=== PATIENT | male | born 1960 | race Caucasian/White ===

== ENCOUNTER 2020-01-15 13:19 | Outpatient (REF) | payer OTHER, SELFPAY | END 2020-01-15 13:20 | disposition home or self-care (01) | LOC: HO.LAB 13:19 | PROVIDERS: Visit Provider Internal Medicine | DX: Z20.828 Contact with and (suspected) exposure to other viral communicable diseases (principal) | CPT/HCPCS: U0003 ==

== ENCOUNTER 2020-01-21 09:59 | Outpatient (REF) | payer OTHER, SELFPAY | END 2020-01-21 10:00 | disposition home or self-care (01) | LOC: HO.LAB 09:59 | PROVIDERS: Visit Provider Internal Medicine | DX: Z20.828 Contact with and (suspected) exposure to other viral communicable diseases (principal) | CPT/HCPCS: C9803; U0003 ==

== ENCOUNTER 2020-01-28 09:05 | Outpatient (REF) | payer OTHER, SELFPAY | END 2020-01-28 09:06 | disposition home or self-care (01) | LOC: HO.LAB 09:05 | PROVIDERS: Visit Provider Internal Medicine | DX: Z20.828 Contact with and (suspected) exposure to other viral communicable diseases (principal) | CPT/HCPCS: C9803; U0003 ==

== ENCOUNTER 2020-02-18 15:23 | Outpatient (REF) | payer OTHER, SELFPAY | END 2020-02-18 15:24 | disposition home or self-care (01) | LOC: HO.LAB 15:23 | PROVIDERS: PCP Internal Medicine; Visit Provider Internal Medicine | DX: Z20.828 Contact with and (suspected) exposure to other viral communicable diseases (principal) | CPT/HCPCS: C9803; U0003 ==

== ENCOUNTER 2020-05-11 11:07 | Emergency (ER) | payer OTHER, SELFPAY ==
[2020-05-11 11:34] VITALS: BP 134/89; PULSE 80; RESP 20; TEMP 36.6; O2SAT 97; BMI 27.3
--- NOTE | 2020-05-11 12:36 | ED_ITS ---
HPI - Medical Clearance General Chief complaint: Medical Clearance <Omar Goetz NP - Last Filed: 05/11/20 19:24> Stated complaint: medical clearance <Omar Goetz NP - Last Filed: 05/11/20 19:24> Time Seen by Provider: 05/11/20 12:36 <Omar Goetz NP - Last Filed: 05/11/20 19:24> Source: patient <Omar Goetz NP - Last Filed: 05/11/20 19:24> Mode of arrival: ambulatory <Omar Goetz NP - Last Filed: 05/11/20 19:24> Limitations: no limitations <Omar Goetz NP - Last Filed: 05/11/20 19:24> History of Present Illness HPI Narrative: This is 60-year-old male who reports history of alcohol abuse as well as intermittent crack cocaine use he went to [facility] for detox services given that he was intoxicated he was sent to the emergency room for medical clearance screening labs. Apparently our substance abuse team was informed of this and they have a bed for the patient at midnight. He upon arrival admits to drinking ?couple pints? of beer today states he is not really sure why he has to come here for medical clearance. He offers no other medical complaints. No recent fall or injury. <Omar Goetz NP - Last Filed: 05/11/20 19:24> MD complaint: medical clearance requested <Omar Goetz NP - Last Filed: 05/11/20 19:24> Onset (ago): day(s) <Omar Goetz NP - Last Filed: 05/11/20 19:24> Reason for Medical Clearance: intoxication <Omar Goetz NP - Last Filed: 05/11/20 19:24> Alleged Intoxication: Yes <Omar Goetz NP - Last Filed: 05/11/20 19:24> Traumatic Symptoms: denies traumatic injury <Omar Goetz NP - Last Filed: 05/11/20 19:24> Associated Symptoms: denies other symptoms <Omar Goetz NP - Last Filed: 05/11/20 19:24> Treatments Prior to Arrival: none <Omar Goetz NP - Last Filed: 05/11/20 19:24> Related Information Allergies/Adverse reactions: Allergies Allergy/AdvReac Type Severity Reaction Status Date / Time No Known Allergies Allergy Verified 05/11/20 11:39 [No Known Allergies*] <Omar Goetz NP - Last Filed: 05/11/20 19:24> Review of Systems Review of Systems: Constitutional: No Weight loss, No Fever, No Chills, No Night Sweats, No Fatigue, No Malaise ENT/Mouth: No Hearing loss, No Ear Pain, No Nasal Congestion, No Sinus Pain, No Hoarseness, No sore throat, No Rhinorrhea, No Swallowing Difficulty Eyes: No Eye Pain, No Swelling, No Redness, No Foreign Body, No Discharge, No Vision Changes Cardiovascular: No Chest Pain, No SOB, No Dyspnea on Exertion, No Orthopnea, No Edema, No Palpitations Respiratory: No Cough, No Sputum, No Wheezing, No Dyspnea Gastrointestinal: No Nausea, No Vomiting, No Diarrhea, No Constipation, No abdominal Pain, No Hematochezia, No Melena Genitourinary: No Dysuria, No Urinary Frequency, No Hematuria, No Urinary Incontinence, No Urgency, No Flank Pain, No Urinary Flow Changes, No Hesitancy Musculoskeletal: No joint pain, No Myalgias, No Joint Swelling Skin: No Skin Lesions, No rash Neuro: No Weakness, No Numbness, No Paresthesias, No Loss of Consciousness, No Dizziness, No Headache Psych: No Anxiety/Panic, No Depression, No SI/HI/AH/VH, No Social Issues Heme/Lymph: No Bruising, No Bleeding,No Lymphadenopathy Endocrine: No Polyuria, No Polydipsia, No Temperature Intolerance <Omar Goetz NP - Last Filed: 05/11/20 19:24> Yes all other systems are reviewed and are negative <Omar Goetz NP - Last Filed: 05/11/20 19:24> [facility] Past Medical History Medical History: Medical History (Updated 05/12/20 @ 00:00 by Onofre Brar) Cirrhosis of liver Esophageal varices <Omar Goetz NP - Last Filed: 05/11/20 19:24> Social History Social History: Social History Alcohol intake: current Alcohol intake frequency: former alcohol drinker Alcohol type: hard liquor Use of substances other than those prescribed or required for medical reasons: Yes Substance Use Type: Crack/Cocaine Substance Use Frequency: Chronic Longstanding Advance Directives: No Advance Directives Information Provided: No <Omar Goetz NP - Last Filed: 05/11/20 19:24> Physical Exam Vital Signs: Vital Signs: Last Vital Signs Temp 98 F 05/11/20 11:34 Pulse 80 05/11/20 11:34 Resp 20 05/11/20 11:34 BP 134/89 05/11/20 11:34 Pulse Ox 97 05/11/20 11:34 Body Mass Index 27.3 Reviewed <Omar Goetz NP - Last Filed: 05/11/20 19:24> Vital Signs: Last Vital Signs Temp 98 F 05/11/20 11:34 Pulse 80 05/11/20 11:34 Resp 20 05/11/20 11:34 BP 134/89 05/11/20 11:34 Pulse Ox 97 05/11/20 11:34 Body Mass Index 27.3 <Federico Lopez MD - Last Filed: 05/31/20 11:26> Const: Other: Has odor of EtOH <Omar Goetz NP - Last Filed: 05/11/20 19:24> General: cooperative and intoxicated appearing; No acute distress <Omar Goetz NP - Last Filed: 05/11/20 19:24> Nutritional Appearance: average body habitus <Omar Goetz NP - Last Filed: 05/11/20 19:24> Orientation/consciousness: patient oriented x3 <Omar Goetz NP - Last Filed: 05/11/20 19:24> HENMT: Head: Yes normal to inspection <Omar Goetz NP - Last Filed: 05/11/20 19:24> Ears: hearing grossly normal bilaterally <Omar Goetz NP - Last Filed: 05/11/20 19:24> Eyes: General: appearance normal, both eyes and all related structures <Omar Goetz NP - Last Filed: 05/11/20 19:24> Visual Dunbar: normal visual dunbar by confrontation <Omar Goetz NP - Last Filed: 05/11/20 19:24> Neck: Neck: Yes normal visual inspection, No positive Brudzinski's sign, No positive Kernig's sign and No tender <Omar Goetz NP - Last Filed: 05/11/20 19:24> Thyroid: Thyroid normal <[facility] Bishnu [employer] - Last Filed: 05/11/20 19:24> Chest: Chest palpation & inspection: normal inspection of the chest <Omar Goetz [employer]AK[employer] - Last Filed: 05/11/20 19:24> Resp: Effort & Inspection: normal respiratory effort <[facility] Bishnu - Last Filed: 05/11/20 19:24> Auscultation: clear to auscultation bilaterally <Omar Bishnu [employer] - Last Filed: 05/11/20 19:24> Cardio: Jugular venous distension: no JVD <[facility] Bishnu [employer] - Last Filed: 05/11/20 19:24> Rhythm: regular rhythm <[facility] Goetz - Last Filed: 05/11/20 19:24> Heart sounds: S1 normal heart sound present and S2 normal heart sound present <[facility] Bishnu [employer] - Last Filed: 05/11/20 19:24> GI: Inspection: Yes normal to inspection <Omar Bishnu [employer] - Last Filed: 05/11/20 19:24> Palpation (GI): Soft to palpation <[facility] Goetz - Last Filed: 05/11/20 19:24> Percussion: Yes normal to percussion <[facility] Bishnu [employer] - Last Filed: 05/11/20 19:24> Auscultation: normal bowel sounds <Omar Bishnu [employer] - Last Filed: 05/11/20 19:24> : General: Yes no CVA tenderness <Omar Goetz [employer] - Last Filed: 05/11/20 19:24> Back/Spine/Pelvis: Back: no CVA tenderness <Omar Bishnu [employer] - Last Filed: 05/11/20 19:24> Skin: General skin exam: no rashes or lesions noted <Omar Goetz [employer]AK[employer] - Last Filed: 05/11/20 19:24> Neuro: General: patient oriented x3 <Omar GoetzANGELIA - Last Filed: 05/11/20 19:24> Extrem: General: Yes normal to inspection <Omar GoetzANGELIA romero - Last Filed: 05/11/20 19:24> Course Course Course Narrative: Attempting to Walker the ED aware that he must wait to get the results of his workup and has a detox bed states he wants to go home to nut picker his stuff and will go to his detox bed at midnight. States he called his daughter Bisi who is coming to pick him up. <Omar Goetz NP - Last Filed: 05/11/20 19:24> I have reviewed the chart <Federico Lopez MD - Last Filed: 05/31/20 11:26> Reevaluation(s) Reevaluation #1: Olga from the substance abuse team met with the patient and will assist him in getting him to detox. <Omar Goetz NP - Last Filed: 05/11/20 19:24> MDM - Medical Clearance Lab Data Result diagrams: : 05/11/20 14:07 05/11/20 14:07 <Omar Goetz NP - Last Filed: 05/11/20 19:24> Labs: Lab Results 05/11/20 05/11/20 05/11/20 Range/Units 13:03 13:17 14:07 WBC 4.7 L (4.8-10.8) X10*3/uL RBC 4.85 (4.60-5.80) X10*6/uL Hgb 14.9 (14.0-18.0) g/dl Hct 44.5 (42-52) % MCV 91.8 (80-98) fL MCH 30.7 (27.0-33.0) pg MCHC 33.5 (31.0-36.0) g/dl RDW 13.7 (11.0-16.0) % Plt Count 163 (160-400) X10*3/uL MPV 10.1 (9.4-12.4) fL Immature Gran % (Auto) 0.2 (0.0-0.4) % Neut % (Auto) 45.6 (45-73) % Lymph % (Auto) 36.4 (20-40) % Josephine % (Auto) 12.0 H (2-11) % Eos % (Auto) 4.9 H (0-4) % Baso % (Auto) 0.9 (0-2) % Lymph # (Auto) 1.7 (1.2-4.9) X10*3/uL Josephine # (Auto) 0.6 (0.1-1.2) X10*3/uL Eos # (Auto) 0.2 (0.0-0.4) X10*3/uL Baso # (Auto) 0.0 (0.0-0.2) X10*3/uL Abs Immat Gran (auto) 0.01 (0.00-0.03) X10*3/uL Absolute Neuts (auto) 2.1 (2.0-8.3) X10*3/uL Absolute Nucleated RBC 0.000 (0.0-0.012) X10*3/uL Nucleated RBC % (auto) 0.0 (0.0-0.2) /100WBC Sodium (135-145) mmol/L Potassium (3.3-5.1) mmol/L Chloride (96-108) mmol/L Carbon Dioxide (22-29) mmol/L Anion Gap (12-20) BUN (9-16) mg/dL Creatinine (0.5-1.4) mg/dL Estim Creat Clear Calc Estimated GFR Random Glucose (60-115) mg/dL Calcium (8.4-10.2) mg/dL Total Bilirubin (0.0-1.0) mg/dL AST (5-37) U/L ALT (0-40) U/L Alkaline Phosphatase (39-117) U/L Total Protein (6.5-8.0) g/dL Albumin (3.5-5.0) g/dL Urine Opiates Screen Not Detected (Not Detect) Ur Barbiturates Screen Not Detected (Not Detect) Ur Phencyclidine Scrn Not Detected (Not Detect) Ur Amphetamines Screen Not Detected (Not Detect) U Benzodiazepines Scrn Not Detected (Not Detect) Urine Cocaine Screen POSITIVE H (Not Detect) U Marijuana (THC) Screen Not Detected (Not Detect) Ethyl Alcohol mg/dL COVID-19 ([facility]NA) Negative (Negative) COVID-19 Clin Com See Note 05/11/20 05/11/20 Range/Units 14:07 14:07 WBC (4.8-10.8) X10*3/uL RBC (4.60-5.80) X10*6/uL Hgb (14.0-18.0) g/dl Hct (42-52) % MCV (80-98) fL MCH (27.0-33.0) pg MCHC (31.0-36.0) g/dl RDW (11.0-16.0) % Plt Count (160-400) X10*3/uL MPV (9.4-12.4) fL Immature Gran % (Auto) (0.0-0.4) % Neut % (Auto) (45-73) % Lymph % (Auto) (20-40) % Josephine % (Auto) (2-11) % Eos % (Auto) (0-4) % Baso % (Auto) (0-2) % Lymph # (Auto) (1.2-4.9) X10*3/uL Josephine # (Auto) (0.1-1.2) X10*3/uL Eos # (Auto) (0.0-0.4) X10*3/uL Baso # (Auto) (0.0-0.2) X10*3/uL Abs Immat Gran (auto) (0.00-0.03) X10*3/uL Absolute Neuts (auto) (2.0-8.3) X10*3/uL Absolute Nucleated RBC (0.0-0.012) X10*3/uL Nucleated RBC % (auto) (0.0-0.2) /100WBC Sodium 143 (135-145) mmol/L Potassium 3.6 (3.3-5.1) mmol/L Chloride 109 H (96-108) mmol/L Carbon Dioxide 24 (22-29) mmol/L Anion Gap 14 (12-20) BUN 9 (9-16) mg/dL Creatinine 0.75 (0.5-1.4) mg/dL Estim Creat Clear Calc 104.7 Estimated GFR > 60 Random Glucose 109 (60-115) mg/dL Calcium 8.8 (8.4-10.2) mg/dL Total Bilirubin 0.6 (0.0-1.0) mg/dL AST 96 H (5-37) U/L ALT 82 H (0-40) U/L Alkaline Phosphatase 69 (39-117) U/L Total Protein 7.4 (6.5-8.0) g/dL Albumin 4.5 (3.5-5.0) g/dL Urine Opiates Screen (Not Detect) Ur Barbiturates Screen (Not Detect) Ur Phencyclidine Scrn (Not Detect) Ur Amphetamines Screen (Not Detect) U Benzodiazepines Scrn (Not Detect) Urine Cocaine Screen (Not Detect) U Marijuana (THC) Screen (Not Detect) Ethyl Alcohol 328 H* mg/dL COVID-19 ([facility]IANA) (Negative) COVID-19 Clin Com <Omar Goetz NP - Last Filed: 05/11/20 19:24> Lab Results 05/11/20 05/11/20 05/11/20 Range/Units 13:03 13:17 14:07 WBC 4.7 L (4.8-10.8) X10*3/uL RBC 4.85 (4.60-5.80) X10*6/uL Hgb 14.9 (14.0-18.0) g/dl Hct 44.5 (42-52) % MCV 91.8 (80-98) fL MCH 30.7 (27.0-33.0) pg MCHC 33.5 (31.0-36.0) g/dl RDW 13.7 (11.0-16.0) % Plt Count 163 (160-400) X10*3/uL MPV 10.1 (9.4-12.4) fL Immature Gran % (Auto) 0.2 (0.0-0.4) % Neut % (Auto) 45.6 (45-73) % Lymph % (Auto) 36.4 (20-40) % Josephine % (Auto) 12.0 H (2-11) % Eos % (Auto) 4.9 H (0-4) % Baso % (Auto) 0.9 (0-2) % Lymph # (Auto) 1.7 (1.2-4.9) X10*3/uL Josephine # (Auto) 0.6 (0.1-1.2) X10*3/uL Eos # (Auto) 0.2 (0.0-0.4) X10*3/uL Baso # (Auto) 0.0 (0.0-0.2) X10*3/uL Abs Immat Gran (auto) 0.01 (0.00-0.03) X10*3/uL Absolute Neuts (auto) 2.1 (2.0-8.3) X10*3/uL Absolute Nucleated RBC 0.000 (0.0-0.012) X10*3/uL Nucleated RBC % (auto) 0.0 (0.0-0.2) /100WBC Sodium (135-145) mmol/L Potassium (3.3-5.1) mmol/L Chloride (96-108) mmol/L Carbon Dioxide (22-29) mmol/L Anion Gap (12-20) BUN (9-16) mg/dL Creatinine (0.5-1.4) mg/dL Estim Creat Clear Calc Estimated GFR Random Glucose (60-115) mg/dL Calcium (8.4-10.2) mg/dL Total Bilirubin (0.0-1.0) mg/dL AST (5-37) U/L ALT (0-40) U/L Alkaline Phosphatase (39-117) U/L Total Protein (6.5-8.0) g/dL Albumin (3.5-5.0) g/dL Urine Opiates Screen Not Detected (Not Detect) Ur Barbiturates Screen Not Detected (Not Detect) Ur Phencyclidine Scrn Not Detected (Not Detect) Ur Amphetamines Screen Not Detected (Not Detect) U Benzodiazepines Scrn Not Detected (Not Detect) Urine Cocaine Screen POSITIVE H (Not Detect) U Marijuana (THC) Screen Not Detected (Not Detect) Ethyl Alcohol mg/dL COVID-19 ([facility]NA) Negative (Negative) COVID-19 Clin Com See Note 05/11/20 05/11/20 Range/Units 14:07 14:07 WBC (4.8-10.8) X10*3/uL RBC (4.60-5.80) X10*6/uL Hgb (14.0-18.0) g/dl Hct (42-52) % MCV (80-98) fL MCH (27.0-33.0) pg MCHC (31.0-36.0) g/dl RDW (11.0-16.0) % Plt Count (160-400) X10*3/uL MPV (9.4-12.4) fL Immature Gran % (Auto) (0.0-0.4) % Neut % (Auto) (45-73) % Lymph % (Auto) (20-40) % Josephine % (Auto) (2-11) % Eos % (Auto) (0-4) % Baso % (Auto) (0-2) % Lymph # (Auto) (1.2-4.9) X10*3/uL Josephine # (Auto) (0.1-1.2) X10*3/uL Eos # (Auto) (0.0-0.4) X10*3/uL Baso # (Auto) (0.0-0.2) X10*3/uL Abs Immat Gran (auto) (0.00-0.03) X10*3/uL Absolute Neuts (auto) (2.0-8.3) X10*3/uL Absolute Nucleated RBC (0.0-0.012) X10*3/uL Nucleated RBC % (auto) (0.0-0.2) /100WBC Sodium 143 (135-145) mmol/L Potassium 3.6 (3.3-5.1) mmol/L Chloride 109 H (96-108) mmol/L Carbon Dioxide 24 (22-29) mmol/L Anion Gap 14 (12-20) BUN 9 (9-16) mg/dL Creatinine 0.75 (0.5-1.4) mg/dL Estim Creat Clear Calc 104.7 Estimated GFR > 60 Random Glucose 109 (60-115) mg/dL Calcium 8.8 (8.4-10.2) mg/dL Total Bilirubin 0.6 (0.0-1.0) mg/dL AST 96 H (5-37) U/L ALT 82 H (0-40) U/L Alkaline Phosphatase 69 (39-117) U/L Total Protein 7.4 (6.5-8.0) g/dL Albumin 4.5 (3.5-5.0) g/dL Urine Opiates Screen (Not Detect) Ur Barbiturates Screen (Not Detect) Ur Phencyclidine Scrn (Not Detect) Ur Amphetamines Screen (Not Detect) U Benzodiazepines Scrn (Not Detect) Urine Cocaine Screen (Not Detect) U Marijuana (THC) Screen (Not Detect) Ethyl Alcohol 328 H* mg/dL COVID-19 ([facility]NA) (Negative) COVID-19 Clin Com <Federico Lopez MD - Last Filed: 05/31/20 11:26> ECG Data Interpretation: EKG done at 13:05 Normal sinus rhythm Rate 70 RI interval within normal limits No acute ST segment changes No previous <Omar Goetz NP - Last Filed: 05/11/20 19:24> Discharge Plan Discharge Clinical Impression: Alcohol intoxication, Substance abuse <Omar Goetz NP - Last Filed: 05/11/20 19:24> Patient Disposition: Elopement <Omar Goetz NP - Last Filed: 05/11/20 19:24> Discharge Date/Time: 05/11/20 14:46 <Omar Goetz NP - Last Filed: 05/11/20 19:24>
--- NOTE | 2020-05-11 12:45 | ECG_ITS ---
Test Reason : MED CLEAR Blood Pressure : / mmHG Vent. Rate : 090 BPM Atrial Rate : 267 BPM P-R Int : 000 ms QRS Dur : 092 ms QT Int : 386 ms P-R-T Axes : 000 079 078 degrees QTc Int : 472 ms Accelerated Junctional rhythm Abnormal ECG No previous ECGs available Referred By: Omar Goetz Electronically Signed By:HOLDEN HARDY MD
--- NOTE | 2020-05-11 12:45 | PC.NURSE ---
called to ed room, pt was out in parking lot, ambulatory to [facility], appears intoxicated, states last used crack couple days ago and drank a couple 1/2 pints today, ANGELIA Goetz at bedside for assessment, labs, ekg, covid swab to be obtained
--- NOTE | 2020-05-11 12:59 | MHC.RECOVRN ---
T/w received call from [facility] informing t/w that pt was here to obtain medical clearance prior to ATS admission. T/w met with pt to confirm that he is planning on going to ATS after medical clearance and obtaining belongings. Pt agreeable to labs, COVID swab, and EKG. Will continue to follow.
--- NOTE | 2020-05-11 13:09 | PC.NURSE ---
EKG REPEATED AT PROVIDER REQUEST [id number]
[2020-05-11 13:42] LABS: COVID-19 Test Negative (Negative)
[2020-05-11 14:00] LABS: Amphetamine Screen Urine Not Detected (Not Detect); Barbiturates, Urine Not Detected (Not Detect); Benzodiazepines Screen Urine Not Detected (Not Detect); Cannabinoid Screen Urine Not Detected (Not Detect); Cocaine Screen Urine POSITIVE (Not Detect); Opiate Screen Urine Not Detected (Not Detect); Phencyclidine Screen Urine Not Detected (Not Detect)
[2020-05-11 14:13] LABS: MANUAL DIFF FLAG NO
[2020-05-11 14:16] LABS: Basophils Percent Auto 0.9 % (0-2); Eosinophils Absolute Auto 0.2 X10*3/uL (0.0-0.4); Eosinophils Percent Auto 4.9 % (0-4); Hematocrit 44.5 % (42-52); Hemoglobin 14.9 g/dl (14.0-18.0); Imm Gran Abs Auto 0.01 X10*3/uL (0.00-0.03); Imm Gran Pct Auto 0.2 % (0.0-0.4); Lymphocytes Absolute Auto 1.7 X10*3/uL (1.2-4.9); Lymphocytes Percent Auto 36.4 % (20-40); Mean Corpuscular HGB Conc 33.5 g/dl (31.0-36.0); Mean Corpuscular Hemoglobin 30.7 pg (27.0-33.0); Mean Corpuscular Volume 91.8 fL (80-98); Mean Platelet Volume 10.1 fL (9.4-12.4); Monocytes Absolute Auto 0.6 X10*3/uL (0.1-1.2); Neutrophils Absolute Auto 2.1 X10*3/uL (2.0-8.3); Neutrophils Percent Auto 45.6 % (45-73); Platelet Count 163 X10*3/uL (160-400); Red Blood Count 4.85 X10*6/uL (4.60-5.80); Red Cell Distribution Width 13.7 % (11.0-16.0); White Blood Count 4.7 X10*3/uL (4.8-10.8)
--- NOTE | 2020-05-11 14:23 | ECG_ITS ---
Test Reason : MED CLEARANCE Blood Pressure : / mmHG Vent. Rate : 076 BPM Atrial Rate : 076 BPM P-R Int : 128 ms QRS Dur : 098 ms QT Int : 410 ms P-R-T Axes : 074 079 080 degrees QTc Int : 461 ms Normal sinus rhythm Normal ECG When compared with ECG of 11-MAY-2020 12:51, Sinus rhythm has replaced Junctional rhythm Referred By: Omar Goetz Electronically Signed By:HOLDEN HARDY MD
[2020-05-11 14:42] LABS: Ethanol 328 mg/dL
[2020-05-11 14:50] LABS: Alanine Aminotransferase 82 U/L (0-40); Albumin Level 4.5 g/dL (3.5-5.0); Alkaline Phosphatase 69 U/L (39-117); Anion Gap 14 (12-20); Aspartate Amino Transferase 96 U/L (5-37); Bilirubin Total 0.6 mg/dL (0.0-1.0); Blood Urea Nitrogen 9 mg/dL (9-16); Calcium 8.8 mg/dL (8.4-10.2); Carbon Dioxide 24 mmol/L (22-29); Chloride 109 mmol/L (96-108); Creatinine Clr Calc Pharmacy 104.7; Estimated Glomerular Filt Rate > 60; Glucose Random 109 mg/dL (60-115); Potassium 3.6 mmol/L (3.3-5.1); Sodium 143 mmol/L (135-145); Total Protein 7.4 g/dL (6.5-8.0)
== END 2020-05-11 14:46 | disposition left against medical advice (07) ==
PROVIDERS: Nurse Practitioner Primary Care; Emergency Provider Emergency Medicine
DX: F10.120 Alcohol abuse with intoxication, uncomplicated (principal); Y90.8 Blood alcohol level of 240 mg/100 ml or more; F14.10 Cocaine abuse, uncomplicated; Z20.822 Contact with and (suspected) exposure to COVID-19; K74.60 Unspecified cirrhosis of liver
CPT/HCPCS: 36415; 80053; 80307; 80320; 85025; 87635; 93005; 99283

== ENCOUNTER 2021-07-12 16:26 | Emergency (ER) | payer OTHER, SELFPAY ==
--- NOTE | 2021-07-12 16:34 | ECG_ITS ---
Test Reason : OVERDOSE Blood Pressure : / mmHG Vent. Rate : 072 BPM Atrial Rate : 072 BPM P-R Int : 126 ms QRS Dur : 092 ms QT Int : 426 ms P-R-T Axes : 070 077 073 degrees QTc Int : 466 ms Normal sinus rhythm Normal ECG When compared with ECG of 11-MAY-2020 13:05, No significant change was found Referred By: Scarlet Cordero Electronically Signed By:TOYA CHU
--- NOTE | 2021-07-12 16:36 | ED_ITS ---
HPI - General Adult General Stated complaint: overdose Time Seen by Provider: 07/12/21 16:29 Source: patient and EMS Mode of arrival: EMS Limitations: no limitations History of Present Illness HPI narrative: Patient comes to the emergency room from a sober house via EMS. The staff reported that the patient was not acting right, somnolent. The patient is awake and alert, states that he has in his room quarantine due to COVID 19, he was trying to get some sleep, patient took additional doses of his prescribed zolpidem. Patient took a total of 5 tablets, 10 mg each. Patient states that he did not try to hurt himself, he was just trying to get some sleep. Patient denies using drugs or alcohol . Patient also takes gabapentin. Denies taking additional doses of this. Other than feeling sleepy, patient has no other complaints Related Data Allergies Allergy/AdvReac Type Severity Reaction Status Date / Time No Known Allergies Allergy Verified 05/11/20 11:39 [No Known Allergies*] Review of Systems Review of Systems: Constitutional : No Weight loss, No Fever, No Chills, No Night Sweats, complaining of somnolence ENT/Mouth : No Hearing loss, No Ear Pain, No Nasal Congestion, No Sinus Pain, No Hoarseness, No sore throat, No Rhinorrhea, No Swallowing Difficulty Eyes: No Eye Pain, No Swelling, No Redness, No Foreign Body, No Discharge, No Vision Changes Cardiovascular : No Chest Pain, No SOB, No Dyspnea on Exertion, No Orthopnea, No Edema, No Palpitations Respiratory : No Cough, No Sputum, No Wheezing, No Smoke Exposure, No Dyspnea Gastrointestinal : No Nausea, No Vomiting, No Diarrhea, No Constipation, No abdominal Pain, No Hematochezia, No Melena Genitourinary : no irregular bleeding, No Dysuria, No Urinary Frequency, No Hematuria, No Urinary Incontinence, No Urgency, No Flank Pain, No Urinary Flow Changes, No Hesitancy Musculoskeletal : No joint pain, No Myalgias, No Joint Swelling Skin : No Skin Lesions, No rash Neuro : No Weakness, No Numbness, No Paresthesias, No Loss of Consciousness, No Dizziness, No Headache Psych : No Anxiety/Panic, No Depression, No SI/HI/AH/VH, No Social Issues, Heme/Lymph: No Bruising, No Bleeding,No Lymphadenopathy Endocrine : No Polyuria, No Polydipsia, No Temperature Intolerance [facility] Past Medical History Medical History (Updated 07/12/21 @ 16:40 by Scarlet Cordero MD) Alcohol abuse Cirrhosis of liver Esophageal varices Social History Social History Alcohol intake: current Alcohol intake frequency: former alcohol drinker Alcohol type: hard liquor Substance Use Type: Crack/Cocaine Physical Exam ED Const Other: Appearance: Alert. Oriented X3. No acute distress. Somnolent but easily arousable Eyes: Pupils equal, round and reactive to light. ENT: Pharynx normal. Neck: Normal inspection. Neck supple. No lymph nodes noted. No crepitus CVS: Normal heart rate and rhythm. Pulses normal. Normal S1 and S2 Respiratory: No respiratory distress. Breath sounds normal. No Wheezing. No rales Abdomen: Soft and nontender. No rigidity. No distention. Skin: Skin warm and dry. Normal skin color. Normal skin turgor. Extremities: No lower extremity edema. No Lacerations. No Rash Neuro: Oriented X 3. No motor deficit. No sensory deficit. Moving all extremities. No slurred speech. CN 2 through 12 grossly intact Psych: calm, cooperative, normal affect, coherent Course Course Course Narrative: Labs pending. Treatment for zolpidem overdose is supportive. I was informed by the patient's nurse that the patient eloped. On arrival, other than a bit somnolent, patient was alert and oriented x3, clinically sober. Discharge Plan Discharge Clinical Impression: Accidental medication overdose Patient Disposition: Elopement
[2021-07-12 17:29] VITALS: BP 130/70; PULSE 70; O2SAT 98
[2021-07-12 17:30] VITALS: BP 135/77; PULSE 68; RESP 16; TEMP 36.8; O2SAT 98; BMI 27.4
== END 2021-07-12 17:42 | disposition left against medical advice (07) ==
LOC: HO.ED 17:26
PROVIDERS: Emergency Provider Emergency Medicine
DX: T42.6X1A Poisoning by other antiepileptic and sedative-hypnotic drugs, accidental (unintentional), initial encounter (principal); Y92.9 Unspecified place or not applicable
CPT/HCPCS: 93005; 99283

== ENCOUNTER 2022-01-01 14:19 | Emergency (ER) | payer OTHER, SELFPAY ==
--- OUTSIDE RECORDS SUMMARY | 2022-01-01 16:02 | XMS_ITS | Continuity of Care Document ---
:1960 Author Organization [facility] Address [address] [place] [id number]- Care Team Providers Name Role Phone Dev Ghosh DO Primary Care Physician Encounter [facility] Date(s): 12/09/21 - 12/11/[address] [id number]- Encounter Diagnosis Altered mental status (Final) - 12/10/21 Alcohol intoxication (Final) - 12/10/21 Suicidal ideation (Final) - 12/10/21 Discharge Disposition: A-D/C Home Attending Physician: Gracia Gibbs MD Admitting Physician: Gracia Gibbs MD Referring Physician: Not on Staff, Referring MD Allergies, Adverse Reactions, Alerts No Known Allergies Medications Ambien 10 mg oral tablet 1 tablet = 10 mg, By Mouth, Daily at bedtime, PRN for sleep, 0 Refills, Maintenance, Tablet Start Date: 04/30/11 Status: OrderedElavil Tablet By Mouth, 2 times a day, Maintenance, 04/30/11 16:22:03 Start Date: 04/30/11 Status: Orderedgabapentin 400 mg oral capsule 400 mg, Capsule, By Mouth, 12/11/21 9:00:00 EDT Start Date: 12/11/21 Stop Date: 12/11/21 Status: Completedibuprofen 800 mg oral tablet 1 tablet = 800 mg, By Mouth, 3 times a day, PRN Pain, # 30 tablet, 0 Refills, Maintenance Start Date: 07/14/09 Status: OrderedKlonopin 1 mg oral tablet 1 tablet = 1 mg, By Mouth, Daily at bedtime, 0 Refills, Maintenance Start Date: 04/30/11 Status: OrderedTylox 500 mg-5 mg oral capsule 1 capsule, By Mouth, Every 4 hours, PRN Pain, # 15 capsule, 0 Refills Start Date: 12/26/08 Stop Date: 01/02/09 Status: Ordered Problem List Condition Effective Dates Status Health Status Informant Cervical radiculopathy(Confirmed) Active Vital Signs Most recent to oldest 1 2 3 [Reference Range]: Oxygen Saturation [94-100 %] 95 % 93 % 93 % (12/11/21 6:18 AM) *L* *L* (12/10/21 11:00 PM) (12/10/21:23 PM) Pulse Rate [55-90 bpm] 57 bpm 52 bpm 60 bpm (12/11/21 6:18 AM) *L* (12/10/21 5:23 PM) (12/10/21 11:00 PM) Blood Pressure [90-138/55-84 117/53 mm Hg 114/51 mm Hg 103 /50 mm Hg mm Hg] (12/11/21 6:18 AM) (12/10/21 11:00 PM) (12/10/21: 23 PM) Respiratory Rate [16-30 16 br/min 16 br/min 16 br/mi n br/min] (12/11/21 8:50 AM) (12/11/21 6:18 AM) (12/10/21 11: 00 PM) Temperature [96.8-100.4 DegF] 98.7 DegF 98.5 DegF 98 .4 DegF (12/11/21 6:18 AM) (12/10/21 11:00 PM) (12/10/21 1: 00 PM) Mode of Delivery (Oxygen) Room air Room air Room a ir (12/11/21 6:18 AM) (12/10/21 11:00 PM) (12/10/21: 23 PM) Blood pressure sites Arm, right Arm, left Arm, left (12/11/21 6:18 AM) (12/10/21 11:00 PM) (12/10/21 5: 23 PM) Temperature Route Oral Oral Oral (12/11/21 6:18 AM) (12/10/21 11:00 PM) (12/10/21 1: 00 PM) Care Team PersonnelName: Dev Ghosh DO Address: [address] [place] [id number]
== END 2022-01-01 16:44 | disposition left against medical advice (07) ==
PROVIDERS: Emergency Provider Emergency Medicine
DX: R06.00 Dyspnea, unspecified (principal)

== ENCOUNTER 2022-01-15 17:00 | Emergency (ER) | payer OTHER, SELFPAY ==
[2022-01-15 17:06] VITALS: BP 135/85; PULSE 81; RESP 18; TEMP 36.8; O2SAT 93; BMI 28.8
--- NOTE | 2022-01-15 17:19 | ED_ITS ---
HPI - Overdose General Chief Complaint: Overdose Stated Complaint: ambien OD Time Seen by Provider: 01/15/22 17:06 Source: patient and EMS Mode of arrival: EMS Limitations: no limitations History of Present Illness HPI Narrative: 61-year-old male brought in by EMS for evaluation after total of 8 pills of 10 mg of Ambien (zolpidem) because his been having insomnia and he was trying to sleep, patient was found drowsy, patient is lethargic arousable to verbal stimuli able to carry on conversation patient declined any SI or HI. Patient also declined using any recreational drugs or alcohol. Patient had similar presentation 6 months ago and he overdosed on Ambien because he was having insomnia. Related Data Allergies Allergy/AdvReac Type Severity Reaction Status Date / Time No Known Allergies Allergy Verified 05/11/20 11:39 [No Known Allergies*] Review of Systems Review of Systems: All other systems are reviewed and are negative Constitutional: Reports as per HPI and Reports no additional constitutional complaints Eyes: Reports as per HPI and Reports no additional eye complaints Reports system reviewed and no additional complaints, except as documented Cardiovascular: Reports as per HPI and Reports no additional cardiovascular complaints Respiratory: Reports as per HPI and Reports no additional respiratory complaints Gastrointestinal: Reports as per HPI and Reports no additional gastrointestinal complaints Genitourinary: Reports no additional female genitourinary complaints Musculoskeletal: Reports no additional musculoskeletal complaints Skin/Breast: Reports system reviewed and no additional complaints, except as docu Psychiatric: Reports no additional psychiatric complaints Endocrine: Reports no additional endocrine complaints Hematologic/Lymphatic: Reports no additional hematologic/lymphatic complaints Allergic/Immunologic: Reports no additional allergic/immunologic complaints Reports system reviewed and no additional complaints, except as documented and Reports Abnormal speech present COUNT INCLUDES [facility] Past Medical History Medical History Alcohol abuse Cirrhosis of liver Esophageal varices Social History Social History Alcohol intake: current Alcohol intake frequency: former alcohol drinker Alcohol type: hard liquor Substance Use Type: Crack/Cocaine Advance Directives: No Advance Directives Information Provided: No Physical Exam Vital Signs: Vital Signs: Last Vital Signs Temp 98.2 F 01/15/22 17:06 Pulse 81 01/15/22 17:06 Resp 18 01/15/22 17:06 BP 135/85 01/15/22 17:06 Pulse Ox 93 01/15/22 17:06 O2 Del Method 01/15/22 17:06 BMI result Body Mass Index 28.8 Vital signs have been reviewed as appeared to be correct. Blood pressure normal. Heart rate normal. Respiration rate normal. Temperature normal. Oxygen saturation normal. Appearance: Lethargic arouse to verbal stimuli. Oriented X3. No acute distress. Head: Normal external exam. Normocephalic. Atraumatic. No Gamble signs noted. No raccoon eyes noted Eyes: PERRLA. EOMI. Conjunctiva and sclera normal. Eyelids normal. ENT: TM's Normal. Pharynx normal. Uvula midline. Moist mucous membranes. No trismus noted. No drooling noted. No muffled voice noted. Neck: Normal inspection. Neck supple. FROM. No adenopathy. Thyroid Normal. No meningeal signs. No neck mass noted. CVS: Normal heart rate and rhythm. Heart sound normal. No murmurs noted. Pulses normal throughout. Respiratory: No respiratory distress. Painless inspiration. Breath sounds normal. No wheezes/rales/rhonchi noted. Chest nontender. No accessory muscle usage noted or decreased air movement noted. Abdomen: Soft and nontender. Bowel sounds normal in all 4 quadrants. No distention noted. No organomegaly noted. No visible injury noted. Back: No CVA tenderness. Full range of motion noted. Skin: Skin warm and dry. Normal skin color. Normal skin turgor. No rashes/lesions/lacerations noted. Extremities: No lower extremity edema. Extremities exhibit normal range of motion. Extremities nontender. Neuro: Oriented X 3. Cranial nerve exam: II-XII are grossly intact No motor deficit. No sensory deficit. Reflexes normal. Course Course Course Narrative: 61-year-old male presented after overdosed on Ambien with no intention to hurt himself patient was hoping to have a better sleep. Unremarkable labs will discharge the patient when he is more sober. Patient was instructed to take his prescribed medication as instructed by his PCP. MDM - Overdose Medical Records Attestation: I reviewed the patient's medical records. Lab Data Attestation: I reviewed the patient's lab results. Result diagrams: 01/15/22 17:26 01/15/22 17:26 Labs: Lab Results 01/15/22 01/15/22 Range/Units 17:26 17:26 WBC 4.0 L (4.8-10.8) X10*3/uL RBC 4.12 L (4.60-5.80) X10*6/uL Hgb 12.7 L (14.0-18.0) g/dl Hct 36.8 L (42.0-52.0) % MCV 89.3 (80.0-98.0) fL MCH 30.8 (27.0-33.0) pg MCHC 34.5 (31.0-36.0) g/dl RDW 13.2 (11.0-16.0) % Plt Count 139 L (160-400) X10*3/uL MPV 10.3 (9.4-12.4) fL Immature Gran % (Auto) 0.2 (0.0-0.4) % Neut % (Auto) 63.8 (45-73) % Lymph % (Auto) 21.4 (20-40) % [place] % (Auto) 11.2 H (2-11) % Eos % (Auto) 2.7 (0-4) % Baso % (Auto) 0.7 (0-2) % Lymph # (Auto) 0.9 L (1.2-4.9) X10*3/uL [place] # (Auto) 0.5 (0.1-1.2) X10*3/uL Eos # (Auto) 0.1 (0.0-0.4) X10*3/uL Baso # (Auto) 0.0 (0.0-0.2) X10*3/uL Abs Immat Gran (auto) 0.01 (0.00-0.03) X10*3/uL Absolute Neuts (auto) 2.6 (2.0-8.3) x10*3/uL Absolute Nucleated RBC 0.000 (0.0-0.012) X10*3/uL Nucleated RBC % (auto) 0.0 (0.0-0.2) /100WBC Sodium 138 (135-145) mmol/L Potassium 3.4 (3.3-5.1) mmol/L Chloride 105 (96-108) mmol/L Carbon Dioxide 26 (22-29) mmol/L Anion Gap 10 L (12-20) BUN 7 L (9-16) mg/dL Creatinine 0.69 (0.5-1.4) mg/dL Estim Creat Clear Calc 120.0 Estimated GFR > 60 Random Glucose 93 (60-115) mg/dL Calcium 8.7 (8.4-10.2) mg/dL Total Bilirubin 0.7 (0.0-1.0) mg/dL Direct Bilirubin 0.3 (0.0-0.5) mg/dL AST 26 D (5-37) U/L ALT 22 (0-40) U/L Alkaline Phosphatase 56 (39-117) U/L Total Protein 6.2 L (6.5-8.0) g/dL Albumin 3.8 (3.5-5.0) g/dL Lipase 23 (8-78) U/L Salicylates < 5.0 L (15-30) mg/dL Acetaminophen < 1 (<30) mcg/mL Ethyl Alcohol < 10 mg/dL Discharge Plan Discharge Clinical Impression: Accidental drug ingestion Patient Disposition: Still a Patient Instructions: Adult Overdose (ED) Additional Instructions: Take the medicine as was instructed and prescribed to you. Referrals: Physician,Unknown J [Primary Care Provider] -
--- OUTSIDE RECORDS SUMMARY | 2022-01-15 17:22 | XMS_ITS | Continuity of Care Document ---
:1960 Author Organization [facility] Address [address] [place] [id number]- Care Team Providers Name Role Phone Dev Ghosh DO Primary Care Physician [place] [facility] [place]): [place]01[place] - 01/02/[address] [id number]- Encounter Diagnosis Acute alcohol intoxication (Final) - 01/01/22 Opiate overdose (Final) - 01/01/22 Discharge Disposition: A-D/C AMA Attending Physician: Nnamdi Lacey MD Admitting Physician: Nnamdi Lacey MD Referring Physician: Not on Staff, Referring MD Allergies, Adverse Reactions, Alerts No Known Allergies Medications Ambien 10 mg oral tablet 1 tablet = 10 mg, By Mouth, Daily at bedtime, PRN for sleep, 0 Refills, Maintenance, Tablet Start Date: 04/30/11 Status: OrderedElavil Tablet By Mouth, 2 times a day, Maintenance, 04/30/11 16:22:03 Start Date: 04/30/11 Status: Orderedibuprofen 800 mg oral tablet 1 tablet = [...] Date: 01/02/09 Status: Ordered Problem List Condition Confirmation Course Effective Dates Status Health I nformant Status Cervical Confirmed Active radiculopathy Results Radiology Reports Exam Date Time Procedure Performing Provider Status 01/02/22 2:05 AM Chest Portable Lonny , Emilia; Auth (Jean Paulaly d) Notes:(Chest Portable) Reason For Exam: Shortness of BreathRESULT: Chest Portable Chest Portable Hx of Present Illness: Shortness of breath COMPARISON: None. FINDINGS: LINES AND TUBES: None. LUNGS AND PLEURA: Clear lungs. Normal pulmonary vascularity. No pleural effusion. No pneumothorax. HEART, MEDIASTINUM AND YENNY: Heart is normal in size. Normal mediastinal and hilar contour. BONES AND SOFT TISSUES: No acute abnormality. IMPRESSION: No acute abnormality. WSN: [id number] Ordering Physician: Gabriel Meadows Dictated By: Get Chauhan MD Dictated Date/Time: 01/01/22 11:19 p Reviewed By: Get Chauhan MD Signed By: Get Chauhan MD Signed Date/Time: 01/01/22 11:19 pm Transcribed By: KESHAWN Transcribed Date/Time: 01/01/22 11:19 pm Vital Signs Most recent to oldest 1 2 3 [Reference Range]: Oxygen Saturation [94-100 94 % 95 % 97 % %] (01/02/22 6:27 AM) (01/02/22 1:28 AM) (01/01/22 11:18 PM) Pulse Rate [55-90 bpm] 78 bpm 60 bpm 66 bpm (01/02/22 6:27 AM) (01/02/22 1:28 AM) (01/01/22 11:18 PM) Blood Pressure 108/58 mm Hg 100/67 mm Hg 99/59 mm Hg [90-138/55-84 mm Hg] (01/02/22 6:27 AM) (01/02/22 1:28 AM) (12/16 10/06 11:18 PM) Respiratory Rate [16-30 16 br/min 22 br/min 20 br/mi n br/min] (01/02/22 6:27 AM) (01/02/22 1:28 AM) (01/01/22 11:18 PM) Temperature [96.8-100.4 98.2 DegF 98.7 DegF 97.3 Deg F DegF] (01/02/22 6:27 AM) (01/01/22 10:00 PM) (01/01/22 9:09 PM) Mode of Delivery (Oxygen) Room air Room air Room a ir (10/18/22 6:27 AM) (01/02/22 1:28 AM) (01/01/22 11:18 PM) Blood pressure sites Arm, right Arm, left Arm, right (01/02/22 6:27 AM) (01/02/22 1:28 AM) (01/01/22 11:18 PM) Temperature Route Oral Oral Oral (01/02/22 6:27 AM) (01/01/22 10:00 PM) (01/01/22 9:09 PM) Portable XR Chest Views [facility]SP[facility]erscribe , CIS S: TRANSCRIBE Get Chauhan MD: VERIFY Event Display: Result: Authored Date: [id number] Chest Portable Hx of Present Illness: Shortness of breath COMPARISON: None. FINDINGS: LINES AND TUBES: None. LUNGS AND PLEURA: Clear lungs. Normal pulmonary vascularity. No pleural effusion. No pneumothorax. HEART, MEDIASTINUM AND YENNY: Heart is normal in size. Normal mediastinal and hilar contour. BONES AND SOFT TISSUES: No acute abnormality. IMPRESSION: No acute abnormality. WSN: [id number] Ordering Physician: Gabriel Meadows Dictated By: Get Chauhan MD Dictated Date/Time: 01/01/22 11:19 p Reviewed By: Get Chauhan MD Signed By: Get Chauhan MD Signed Date/Time: 01/01/22 11:19 pm Transcribed By: KESHAWN Transcribed Date/Time: 01/01/22 11:19 pm Patient Care team information PersonnelName: Dev Ghosh DO Address: Address: [address] [place] [id number]
[2022-01-15 17:29] LABS: MANUAL DIFF FLAG NO
[2022-01-15 17:34] LABS: Basophils Percent Auto 0.7 % (0-2); Eosinophils Absolute Auto 0.1 X10*3/uL (0.0-0.4); Eosinophils Percent Auto 2.7 % (0-4); Hematocrit 36.8 % (42.0-52.0); Hemoglobin 12.7 g/dl (14.0-18.0); Imm Gran Abs Auto 0.01 X10*3/uL (0.00-0.03); Imm Gran Pct Auto 0.2 % (0.0-0.4); Lymphocytes Absolute Auto 0.9 X10*3/uL (1.2-4.9); Lymphocytes Percent Auto 21.4 % (20-40); Mean Corpuscular HGB Conc 34.5 g/dl (31.0-36.0); Mean Corpuscular Hemoglobin 30.8 pg (27.0-33.0); Mean Corpuscular Volume 89.3 fL (80.0-98.0); Mean Platelet Volume 10.3 fL (9.4-12.4); Monocytes Absolute Auto 0.5 X10*3/uL (0.1-1.2); Monocytes Percent Auto 11.2 % (2-11); Neutrophils Absolute Auto 2.6 x10*3/uL (2.0-8.3); Neutrophils Percent Auto 63.8 % (45-73); Platelet Count 139 X10*3/uL (160-400); Red Blood Count 4.12 X10*6/uL (4.60-5.80); Red Cell Distribution Width 13.2 % (11.0-16.0)
[2022-01-15 18:03] LABS: Alanine Aminotransferase 22 U/L (0-40); Albumin Level 3.8 g/dL (3.5-5.0); Alkaline Phosphatase 56 U/L (39-117); Anion Gap 10 (12-20); Aspartate Amino Transferase 26 U/L (5-37); Bilirubin Direct 0.3 mg/dL (0.0-0.5); Bilirubin Total 0.7 mg/dL (0.0-1.0); Blood Urea Nitrogen 7 mg/dL (9-16); Calcium 8.7 mg/dL (8.4-10.2); Carbon Dioxide 26 mmol/L (22-29); Chloride 105 mmol/L (96-108); Estimated Glomerular Filt Rate > 60; Ethanol < 10 mg/dL; Glucose Random 93 mg/dL (60-115); Lipase 23 U/L (8-78); Potassium 3.4 mmol/L (3.3-5.1); Sodium 138 mmol/L (135-145); Total Protein 6.2 g/dL (6.5-8.0)
[2022-01-15 18:14] LABS: Acetaminophen LAB < 1 mcg/mL (<30); Salicylate < 5.0 mg/dL (15-30)
== END 2022-01-15 22:13 | disposition still patient (30) ==
PROVIDERS: Emergency Provider Emergency Medicine
DX: T42.6X1A Poisoning by other antiepileptic and sedative-hypnotic drugs, accidental (unintentional), initial encounter (principal); Y92.9 Unspecified place or not applicable; Z79.899 Other long term (current) drug therapy
CPT/HCPCS: 36415; 80048; 80076; 80143; 80179; 82077; 83690; 85025; 99283

== ENCOUNTER 2022-04-16 08:55 | Inpatient (IN) | payer OTHER, SELFPAY ==
[2022-04-16] VITALS (11 sets, daily range): BP systolic 112–151; BP diastolic 59–77; PULSE 75–101; RESP 13–22; TEMP 36.4–37.1; O2SAT 92–97; BMI 27.3
--- NOTE | 2022-04-16 | ECG_ITS ---
Test Reason : OVERDOSE Blood Pressure : / mmHG Vent. Rate : 090 BPM Atrial Rate : 090 BPM P-R Int : 122 ms QRS Dur : 090 ms QT Int : 380 ms P-R-T Axes : 070 079 074 degrees QTc Int : 464 ms Normal sinus rhythm Normal ECG When compared with ECG of 16-APR-2022 17:09, Premature supraventricular complexes are no longer Present Referred By: Juju Cano Electronically Signed By:Xavier Atwood
--- NOTE | ~2022-04-16 | CT_ITS ---
EXAMINATION: CT HEAD WITHOUT CONTRAST CLINICAL INFORMATION: Increasing lethargy. EtOH. COMPARISON: None TECHNIQUE: Contiguous axial imaging was performed from the skull base to vertex without intravenous administration of contrast. This CT examination was performed using dose optimization techniques as appropriate, variously including the following: *Automated exposure control *Adjustment of mA and/or kV according to patient size (this includes techniques or standardized protocols for targeted exams where dose is matched to indication/reason for exam; i.e. extremities or head) *Use of iterative reconstruction technique DLP: 669. mGy-cm FINDINGS: Soft tissues: There is streaky soft tissue density in the subcutaneous soft tissues overlying the lower right posterior scalp compatible scalp contusion. See axial image 13 series 2. No associated fracture. Bones sinuses and mastoid air cells: No fracture. Sinuses clear. Minimal opacification of the mastoid air cells bilaterally compatible with mucosal thickening There is no intracranial mass hemorrhage or cerebral edema . The ventricles and basilar cisterns are normal. CT/CT head/brain wo IV con IMPRESSION: 1. No acute intracranial pathology. 2. Scalp contusion.
--- NOTE | ~2022-04-16 | XR_ITS ---
EXAMINATION: XR CHEST CLINICAL INFORMATION: Shortness of breath. COMPARISON: None TECHNIQUE: Frontal view of the chest was obtained. FINDINGS: No significant abnormality is noted involving the heart, lungs, mediastinum, bony thorax or soft tissues. Partially visualized left humeral fixation plate appears intact. XR/XR chest 1V IMPRESSION: No acute cardiopulmonary process.
--- NOTE | 2022-04-16 09:12 | ED.PSYCH ---
HPI - Psych General Chief Complaint: Psychiatric Symptoms <MARBIN Cabrera Last Filed: 04/16/22 18:04> Stated Complaint: crisis <MARBIN Cabrera Last Filed: 04/16/22 18:04> Time Seen by Provider: 04/16/22 09:02 <MARBIN Cabrera Last Filed: 04/16/22 18:04> Source: patient <MARBIN Cabrera Last Filed: 04/16/22 18:04> Mode of arrival: ambulatory <MARBIN Cabrera Last Filed: 04/16/22 18:04> History of Present Illness HPI Narrative: 62-year-old male with a past medical history of ETOH abuse, liver cirrhosis, esophageal varices, presenting to the ED complaining of increasing depression with suicidal ideations and plan to hang himself x3 days. Reports relapse on EtOH, last drink this morning. Admits to prior history of ETOH withdrawal. Denies other illicit drug/substances, or overdose on home prescribed medications. Denies injury, trauma, fall, headache, CP/ SOB, abdominal pain, nausea/vomiting <MARBIN Cabrera Last Filed: 04/16/22 18:04> MD complaint: suicidal ideation and feels depressed <MARBIN Cabrera Last Filed: 04/16/22 18:04> Onset (ago): day(s) <MARBIN Cabrera Last Filed: 04/16/22 18:04> Related Data Allergies/Adverse Reactions: Allergies Allergy/AdvReac Type Severity Reaction Status Date / Time No Known Allergies Allergy Verified 05/11/20 11:39 [No Known Allergies*] <MARBIN Cabrera Last Filed: 04/16/22 18:04> Review of Systems Review of Systems: Constitutional: No Fever, No Chills, No Night Sweats, No Fatigue, No Malaise ENT/Mouth: No Ear Pain, No Nasal Congestion, No sore throat, No Rhinorrhea, No Swallowing Difficulty Eyes: No Eye Pain, No Swelling, No Vision Changes Cardiovascular: No Chest Pain, No SOB Respiratory: No Cough, No Sputum, No Dyspnea Gastrointestinal: No Nausea, No Vomiting, No Diarrhea, No Constipation, No Abdominal pain Genitourinary: No Dysuria, No Hematuria,No Flank Pain Musculoskeletal: No joint pain, No Myalgias, No Joint Swelling Skin: No Skin Lesions, No rash Neuro: No Weakness, No Headache Psych: No Anxiety/Panic, + Depression, + SI, No HI/AH/VH, + Social Issues <MARBIN Cabrera - Last Filed: 04/16/22 18:04> Yes all other systems are reviewed and are negative <MARBIN Cabrera - Last Filed: 04/16/22 18:04> Constitutional: Constitutional: Reports as per HPI <MARBIN Cabrera - Last Filed: 04/16/22 18:04> [facility] Past Medical History Attestation statement: The following information was validated with the patient. <MARBIN Cabrera - Last Filed: 04/16/22 18:04> Medical History: Medical History Alcohol abuse Cirrhosis of liver Esophageal varices <MARBIN Cabrera - Last Filed: 04/16/22 18:04> Social History Social History: Social History Alcohol intake: current Alcohol intake frequency: former alcohol drinker Alcohol type: hard liquor Smoked in Last 30 Days: Yes Use of substances other than those prescribed or required for medical reasons: No Substance Use Type: Crack/Cocaine Advance Directives: No Advance Directives Information Provided: No Healthcare Proxy: No Guardian: No <MARBIN Cabrera - Last Filed: 04/16/22 18:04> Physical Exam Vital Signs: Vital Signs: Last Vital Signs Temp 98.7 F 04/17/22 00:46 Pulse 87 04/17/22 00:46 Resp 22 H 04/17/22 00:46 BP 144/57 H 04/17/22 00:46 Pulse Ox 92 04/17/22 00:46 O2 Del Method 04/17/22 00:46 BMI result Body Mass Index 27.3 <MARBIN Cabrera - Last Filed: 04/16/22 18:04> Vital Signs: Last Vital Signs Temp 98.7 F 04/17/22 00:46 Pulse 87 04/17/22 00:46 Resp 22 H 04/17/22 00:46 BP 144/57 H 04/17/22 00:46 Pulse Ox 92 04/17/22 00:46 O2 Del Method 04/17/22 00:46 BMI result Body Mass Index 27.3 <Sarahi Rene NP - Last Filed: 04/17/22 02:14> Const: Other: + ETOH odor on breath <MARBIN Cabrera - Last Filed: 04/16/22 18:04> General: cooperative and no acute distress <MARBIN Cabrera - Last Filed: 04/16/22 18:04> Limitations: no limitations <MARBIN Cabrera - Last Filed: 04/16/22 18:04> HEENT: Head: Yes normal to inspection and Yes atraumatic <MARBIN Cabrera - Last Filed: 04/16/22 18:04> Ears: hearing grossly normal bilaterally <MARBIN Cabrera - Last Filed: 04/16/22 18:04> General nose exam: Normal external nose present <MARBIN Cabrera - Last Filed: 04/16/22 18:04> Face and sinus: Yes normal facial exam <MARBIN Cabrera - Last Filed: 04/16/22 18:04> Eyes: General: appearance normal, both eyes and all related structures <MARBIN Cabrera - Last Filed: 04/16/22 18:04> EOM: EOMs intact bilaterally <MARBIN Cabrera - Last Filed: 04/16/22 18:04> Neck: Neck: Yes normal visual inspection and Yes no meningeal signs <MARBIN Cabrera - Last Filed: 04/16/22 18:04> Resp: Effort & Inspection: normal respiratory effort, no respiratory distress and no stridor <MARBIN Cabrera - Last Filed: 04/16/22 18:04> Auscultation: rhonchi throughout <MARBIN Cabrera - Last Filed: 04/16/22 18:04> Cardio: Rate: regular rate <MARBIN Cabrera - Last Filed: 04/16/22 18:04> Heart sounds: S1 normal heart sound present and S2 normal heart sound present <MARBIN Cabrera Last Filed: 04/16/22 18:04> GI: Inspection: Yes normal to inspection <MARBIN Cabrera Last Filed: 04/16/22 18:04> Palpation (GI): Soft to palpation, nontender, no guarding and not rigid <MARBIN Cabrera - Last Filed: 04/16/22 18:04> Skin: Rashes: no rashes <MARBIN Cabrera - Last Filed: 04/16/22 18:04> Wounds: no wounds <MARBIN Cabrera - Last Filed: 04/16/22 18:04> Neuro: General: tone normal and no meningeal signs <MARBIN Cabrera - Last Filed: 04/16/22 18:04> Gait exam (Neuro): Normal gait present <MARBIN Cabrera Last Filed: 04/16/22 18:04> Extrem: General: Yes normal to inspection <MARBIN Cabrera - Last Filed: 04/16/22 18:04> Psych: Attitude: cooperative <MARBIN Cabrera Last Filed: 04/16/22 18:04> Thought content: Suicidality present and no homicidality <MARBIN Cabrera Last Filed: 04/16/22 18:04> Course Course Course Narrative: -1214-- mild leukocytosis of 12.6. H&H stable. Magnesium mildly low >> p.o. repletion ordered. - Total bilirubin/ AST / ALT acute on chronically elevated likely from chronic ETOH use. tox screen negative. Ethanol 247 XR chest 1V IMPRESSION: No acute cardiopulmonary process. -1629-- Anion gap of 22 likely from chronic ETOH. Low concern for severe sepsis > will give Liter LR and repeat -1656-- patient is still lethargic, arousable to voice, unable to converse/hold a conversation. Will obtain head CT. Possible reaction from patient's home prescribed medications which he took upon ED arrival >> while patient's nurse was in room patient admitted to taking 4 pills of 10 mg of Ambien this morning to aid with sleep. Denies this being SI attempt. Will obtain acetaminophen / salicylate and EKG levels and speak with poison Control -1730-- spoke with poison Control recommended optimizing potassium to 4.0 and magnesium to 2.0, recommended repeat labs including LFTs 4 hours after initial. Will replete potassium and magnesium and repeat labs at 18:30 -1800--ED care transferred to ANGELIA Mcclain pending repeat labs, head CT and CARE team eval <MARBIN Cabrera - Last Filed: 04/16/22 18:04> -1214-- mild leukocytosis of 12.6. H&H stable. Magnesium mildly low >> p.o. repletion ordered. - Total bilirubin/ AST / ALT acute on chronically elevated likely from chronic ETOH use. tox screen negative. Ethanol 247 XR chest 1V IMPRESSION: No acute cardiopulmonary process. -1629-- Anion gap of 22 likely from chronic ETOH. Low concern for severe sepsis > will give Liter LR and repeat -1656-- patient is still lethargic, arousable to voice, unable to converse/hold a conversation. Will obtain head CT. Possible reaction from patient's home prescribed medications which he took upon ED arrival >> while patient's nurse was in room patient admitted to taking 4 pills of 10 mg of Ambien this morning to aid with sleep. Denies this being SI attempt. Will obtain acetaminophen / salicylate and EKG levels and speak with poison Control -1730-- spoke with poison Control recommended optimizing potassium to 4.0 and magnesium to 2.0, recommended repeat labs including LFTs 4 hours after initial. Will replete potassium and magnesium and repeat labs at 18:30 -1800--ED care transferred to ANGELIA Mcclain pending repeat labs, head CT and CARE team eval 02:14 Patient's magnesium repleted with 1 g, plan of care is for repeat evaluation in the morning with care team. Physician observation at this time <Sarahi Rene NP - Last Filed: 04/17/22 02:14> Medications Administered Discontinued Medications Generic Name Dose Route Start Last Admin Trade Name Freq PRN Reason Stop Dose Admin Albuterol/Ipratropium 3 ml 04/16/22 09:56 04/16/22 10:43 Albuterol/Iprat 2.5/0.5mg 3 Ml Ampul.Neb INHALE 04/16/22 09:57 3 ml ONCE ONE Administration Lactated Ringer's 1,000 mls @ 999 mls/hr 04/16/22 16:45 04/16/22 18:23 Lr IV 04/16/22 17:45 Infused .Q1H1M JORGE Infusion Magnesium Sulfate 2 gm in 50 mls @ 25 mls/hr 04/16/22 21:55 04/17/22 01:30 Magnesium Sulfate/H2o IV 04/16/22 23:54 Infused ONCE ONE Infusion Magnesium Oxide 400 mg 04/16/22 12:14 04/16/22 14:50 Magnesium Oxide 400 Mg Tablet PO 04/16/22 12:15 400 mg ONCE ONE Administration Magnesium Oxide 400 mg 04/16/22 17:33 04/16/22 17:51 Magnesium Oxide 400 Mg Tablet PO 04/16/22 17:34 400 mg ONCE ONE Administration Potassium Chloride 60 meq 04/16/22 17:33 04/16/22 17:51 Potassium Chloride Er 20 Meq Tab.Er.Prt PO 04/16/22 17:34 60 meq ONCE ONE Administration <MARBIN Cabrera - Last Filed: 04/16/22 18:04> Medications Administered Discontinued Medications Generic Name Dose Route Start Last Admin Trade Name Freq PRN Reason Stop Dose Admin Albuterol/Ipratropium 3 ml 04/16/22 09:56 04/16/22 10:43 Albuterol/Iprat 2.5/0.5mg 3 Ml Ampul.Neb INHALE 04/16/22 09:57 3 ml ONCE ONE Administration Lactated Ringer's 1,000 mls @ 999 mls/hr 04/16/22 16:45 04/16/22 18:23 Lr IV 04/16/22 17:45 Infused .Q1H1M JORGE Infusion Magnesium Sulfate 2 gm in 50 mls @ 25 mls/hr 04/16/22 21:55 04/17/22 01:30 Magnesium Sulfate/H2o IV 04/16/22 23:54 Infused ONCE ONE Infusion Magnesium Oxide 400 mg 04/16/22 12:14 04/16/22 14:50 Magnesium Oxide 400 Mg Tablet PO 04/16/22 12:15 400 mg ONCE ONE Administration Magnesium Oxide 400 mg 04/16/22 17:33 04/16/22 17:51 Magnesium Oxide 400 Mg Tablet PO 04/16/22 17:34 400 mg ONCE ONE Administration Potassium Chloride 60 meq 04/16/22 17:33 04/16/22 17:51 Potassium Chloride Er 20 Meq Tab.Er.Prt PO 04/16/22 17:34 60 meq ONCE ONE Administration <Sarahi Rene NP - Last Filed: 04/17/22 02:14> Medical Decision Making Medical Decision Making MDM Narrative: 62-year-old male with a past medical history of ETOH abuse, liver cirrhosis, esophageal varices, presenting to the ED complaining of increasing depression with suicidal ideations and plan to hang himself x3 days. on exam vital signs stable, ETOH odor on breath, appears intoxicated, no evidence of trauma, moving all extremities. Concern for suicidal ideations vs ETOH/substance abuse. Concern for underlying undiagnosed COPD vs viral syndrome vs pneumonia low suspicion for severe sepsis plan: Labs, COVID-19/ influenza testing, CXR, DuoNeb, care team consult Please refer to course for remaining clinical decision making, interpretation of labs/imaging results, and discussions with consultants and/or family members. <MARBIN Cabrera - Last Filed: 04/16/22 18:04> Differential Diagnosis Differential Diagnoses: The differential diagnosis associated with the presentation includes <MARBIN Cabrera - Last Filed: 04/16/22 18:04> as above <MARBIN Cabrera - Last Filed: 04/16/22 18:04> Admission/Observation Consideration of admission/observation: Escalation of care including admission/observation considered <MARBIN Cabrera - Last Filed: 04/16/22 18:04> Consult Healthcare Provider Management of the patient was discussed with: Behavioral Health Provider <MARBIN Cabrera - Last Filed: 04/16/22 18:04> Lab Data MDM Lab Attestation statement: I reviewed the patient's lab results. <MARBIN Cabrera - Last Filed: 04/16/22 18:04> Result Diagrams: 04/16/22 09:47 04/16/22 09:47 <MARBIN Cabrera - Last Filed: 04/16/22 18:04> Labs: Lab Results 04/16/22 04/16/22 04/16/22 Range/Units 09:32 09:47 09:47 WBC 12.6 H (4.8-10.8) X10*3/uL RBC 5.51 D (4.60-5.80) X10*6/uL Hgb 16.7 D (14.0-18.0) g/dl Hct 48.7 D (42.0-52.0) % MCV 88.4 (80.0-98.0) fL MCH 30.3 (27.0-33.0) pg MCHC 34.3 (31.0-36.0) g/dl RDW 14.1 (11.0-16.0) % Plt Count 158 L (160-400) X10*3/uL MPV 10.1 (9.4-12.4) fL Immature Gran % (Auto) 0.3 (0.0-0.4) % Neut % (Auto) 84.2 H (45-73) % Lymph % (Auto) 8.2 L (20-40) % Dickson % (Auto) 6.9 (2-11) % Eos % (Auto) 0.1 (0-4) % Baso % (Auto) 0.3 (0-2) % Lymph # (Auto) 1.0 L (1.2-4.9) X10*3/uL Dickson # (Auto) 0.9 (0.1-1.2) X10*3/uL Eos # (Auto) 0.0 (0.0-0.4) X10*3/uL Baso # (Auto) 0.0 (0.0-0.2) X10*3/uL Abs Immat Gran (auto) 0.04 H (0.00-0.03) X10*3/uL Absolute Neuts (auto) 10.6 H (2.0-8.3) x10*3/uL Absolute Nucleated RBC 0.000 (0.0-0.012) X10*3/uL Nucleated RBC % (auto) 0.0 (0.0-0.2) /100WBC PT (10.0-13.1) SEC INR (0.9-1.1) Sodium 144 (135-145) mmol/L Potassium 3.6 (3.3-5.1) mmol/L Chloride 107 (96-108) mmol/L Carbon Dioxide 19 L (22-29) mmol/L Anion Gap 22 H (12-20) BUN 15 (9-16) mg/dL Creatinine 0.81 (0.5-1.4) mg/dL Estim Creat Clear Calc 91.4 Estimated GFR > 60 Random Glucose 203 H (60-115) mg/dL Calcium 9.3 D (8.4-10.2) mg/dL Magnesium 1.5 L (1.6-2.6) mg/dL Total Bilirubin 1.2 H (0.0-1.0) mg/dL Direct Bilirubin 0.4 (0.0-0.5) mg/dL AST 94 H (5-37) U/L ALT 44 H (0-40) U/L Alkaline Phosphatase 83 (39-117) U/L Total Protein 7.1 (6.5-8.0) g/dL Albumin 4.4 (3.5-5.0) g/dL Salicylates (15-30) mg/dL Urine Opiates Screen Not Detected (Not Detect) Urine Fentanyl Screen Not Detected (Not Detect) Acetaminophen (<30) mcg/mL Ur Barbiturates Screen Not Detected (Not Detect) Ur Phencyclidine Scrn Not Detected (Not Detect) Ur Amphetamines Screen Not Detected (Not Detect) U Benzodiazepines Scrn Not Detected (Not Detect) Urine Cocaine Screen Not Detected (Not Detect) U Marijuana (THC) Screen Not Detected (Not Detect) Ethyl Alcohol 247 mg/dL COVID-19 (LILIANA) (Negative) COVID-19 Clin Com Influenza Type A (REANNA) (Negative) Influenza Type B (REANNA) (Negative) Influenza A & B Note 04/16/22 04/16/22 04/16/22 Range/Units 09:47 09:47 09:47 WBC (4.8-10.8) X10*3/uL RBC (4.60-5.80) X10*6/uL Hgb (14.0-18.0) g/dl Hct (42.0-52.0) % MCV (80.0-98.0) fL MCH (27.0-33.0) pg MCHC (31.0-36.0) g/dl RDW (11.0-16.0) % Plt Count (160-400) X10*3/uL MPV (9.4-12.4) fL Immature Gran % (Auto) (0.0-0.4) % Neut % (Auto) (45-73) % Lymph % (Auto) (20-40) % Dickson % (Auto) (2-11) % Eos % (Auto) (0-4) % Baso % (Auto) (0-2) % Lymph # (Auto) (1.2-4.9) X10*3/uL Dickson # (Auto) (0.1-1.2) X10*3/uL Eos # (Auto) (0.0-0.4) X10*3/uL Baso # (Auto) (0.0-0.2) X10*3/uL Abs Immat Gran (auto) (0.00-0.03) X10*3/uL Absolute Neuts (auto) (2.0-8.3) x10*3/uL Absolute Nucleated RBC (0.0-0.012) X10*3/uL Nucleated RBC % (auto) (0.0-0.2) /100WBC PT 13.5 H (10.0-13.1) SEC INR 1.2 H (0.9-1.1) Sodium (135-145) mmol/L Potassium (3.3-5.1) mmol/L Chloride (96-108) mmol/L Carbon Dioxide (22-29) mmol/L Anion Gap (12-20) BUN (9-16) mg/dL Creatinine (0.5-1.4) mg/dL Estim Creat Clear Calc Estimated GFR Random Glucose (60-115) mg/dL Calcium (8.4-10.2) mg/dL Magnesium (1.6-2.6) mg/dL Total Bilirubin (0.0-1.0) mg/dL Direct Bilirubin (0.0-0.5) mg/dL AST (5-37) U/L ALT (0-40) U/L Alkaline Phosphatase (39-117) U/L Total Protein (6.5-8.0) g/dL Albumin (3.5-5.0) g/dL Salicylates (15-30) mg/dL Urine Opiates Screen (Not Detect) Urine Fentanyl Screen (Not Detect) Acetaminophen (<30) mcg/mL Ur Barbiturates Screen (Not Detect) Ur Phencyclidine Scrn (Not Detect) Ur Amphetamines Screen (Not Detect) U Benzodiazepines Scrn (Not Detect) Urine Cocaine Screen (Not Detect) U Marijuana (THC) Screen (Not Detect) Ethyl Alcohol mg/dL COVID-19 (LILIANA) Negative (Negative) COVID-19 Clin Com See Note Influenza Type A (REANNA) Negative (Negative) Influenza Type B (REANNA) Negative (Negative) Influenza A & B Note See Note 04/16/22 Range/Units 21:25 WBC (4.8-10.8) X10*3/uL RBC (4.60-5.80) X10*6/uL Hgb (14.0-18.0) g/dl Hct (42.0-52.0) % MCV (80.0-98.0) fL MCH (27.0-33.0) pg MCHC (31.0-36.0) g/dl RDW (11.0-16.0) % Plt Count (160-400) X10*3/uL MPV (9.4-12.4) fL Immature Gran % (Auto) (0.0-0.4) % Neut % (Auto) (45-73) % Lymph % (Auto) (20-40) % Dickson % (Auto) (2-11) % Eos % (Auto) (0-4) % Baso % (Auto) (0-2) % Lymph # (Auto) (1.2-4.9) X10*3/uL Dickson # (Auto) (0.1-1.2) X10*3/uL Eos # (Auto) (0.0-0.4) X10*3/uL Baso # (Auto) (0.0-0.2) X10*3/uL Abs Immat Gran (auto) (0.00-0.03) X10*3/uL Absolute Neuts (auto) (2.0-8.3) x10*3/uL Absolute Nucleated RBC (0.0-0.012) X10*3/uL Nucleated RBC % (auto) (0.0-0.2) /100WBC PT (10.0-13.1) SEC INR (0.9-1.1) Sodium 146 H (135-145) mmol/L Potassium 4.2 (3.3-5.1) mmol/L Chloride 110 H (96-108) mmol/L Carbon Dioxide 24 (22-29) mmol/L Anion Gap 16 (12-20) BUN 13 (9-16) mg/dL Creatinine 0.70 (0.5-1.4) mg/dL Estim Creat Clear Calc 105.8 Estimated GFR > 60 Random Glucose 100 (60-115) mg/dL Calcium 9.1 (8.4-10.2) mg/dL Magnesium 1.4 L* (1.6-2.6) mg/dL Total Bilirubin 2.1 H (0.0-1.0) mg/dL Direct Bilirubin 0.6 H (0.0-0.5) mg/dL AST 77 H (5-37) U/L ALT 39 (0-40) U/L Alkaline Phosphatase 79 (39-117) U/L Total Protein 6.2 L (6.5-8.0) g/dL Albumin 3.8 (3.5-5.0) g/dL Salicylates < 5.0 L (15-30) mg/dL Urine Opiates Screen (Not Detect) Urine Fentanyl Screen (Not Detect) Acetaminophen < 17 (<30) mcg/mL Ur Barbiturates Screen (Not Detect) Ur Phencyclidine Scrn (Not Detect) Ur Amphetamines Screen (Not Detect) U Benzodiazepines Scrn (Not Detect) Urine Cocaine Screen (Not Detect) U Marijuana (THC) Screen (Not Detect) Ethyl Alcohol mg/dL COVID-19 (LILIANA) (Negative) COVID-19 Clin Com Influenza Type A (REANNA) (Negative) Influenza Type B (REANNA) (Negative) Influenza A & B Note <MARBIN Cabrera - Last Filed: 04/16/22 18:04> Lab Results 04/16/22 04/16/22 04/16/22 Range/Units 09:32 09:47 09:47 WBC 12.6 H (4.8-10.8) X10*3/uL RBC 5.51 D (4.60-5.80) X10*6/uL Hgb 16.7 D (14.0-18.0) g/dl Hct 48.7 D (42.0-52.0) % MCV 88.4 (80.0-98.0) fL MCH 30.3 (27.0-33.0) pg MCHC 34.3 (31.0-36.0) g/dl RDW 14.1 (11.0-16.0) % Plt Count 158 L (160-400) X10*3/uL MPV 10.1 (9.4-12.4) fL Immature Gran % (Auto) 0.3 (0.0-0.4) % Neut % (Auto) 84.2 H (45-73) % Lymph % (Auto) 8.2 L (20-40) % Dickson % (Auto) 6.9 (2-11) % Eos % (Auto) 0.1 (0-4) % Baso % (Auto) 0.3 (0-2) % Lymph # (Auto) 1.0 L (1.2-4.9) X10*3/uL Dickson # (Auto) 0.9 (0.1-1.2) X10*3/uL Eos # (Auto) 0.0 (0.0-0.4) X10*3/uL Baso # (Auto) 0.0 (0.0-0.2) X10*3/uL Abs Immat Gran (auto) 0.04 H (0.00-0.03) X10*3/uL Absolute Neuts (auto) 10.6 H (2.0-8.3) x10*3/uL Absolute Nucleated RBC 0.000 (0.0-0.012) X10*3/uL Nucleated RBC % (auto) 0.0 (0.0-0.2) /100WBC PT (10.0-13.1) SEC INR (0.9-1.1) Sodium 144 (135-145) mmol/L Potassium 3.6 (3.3-5.1) mmol/L Chloride 107 (96-108) mmol/L Carbon Dioxide 19 L (22-29) mmol/L Anion Gap 22 H (12-20) BUN 15 (9-16) mg/dL Creatinine 0.81 (0.5-1.4) mg/dL Estim Creat Clear Calc 91.4 Estimated GFR > 60 Random Glucose 203 H (60-115) mg/dL Calcium 9.3 D (8.4-10.2) mg/dL Magnesium 1.5 L (1.6-2.6) mg/dL Total Bilirubin 1.2 H (0.0-1.0) mg/dL Direct Bilirubin 0.4 (0.0-0.5) mg/dL AST 94 H (5-37) U/L ALT 44 H (0-40) U/L Alkaline Phosphatase 83 (39-117) U/L Total Protein 7.1 (6.5-8.0) g/dL Albumin 4.4 (3.5-5.0) g/dL Salicylates (15-30) mg/dL Urine Opiates Screen Not Detected (Not Detect) Urine Fentanyl Screen Not Detected (Not Detect) Acetaminophen (<30) mcg/mL Ur Barbiturates Screen Not Detected (Not Detect) Ur Phencyclidine Scrn Not Detected (Not Detect) Ur Amphetamines Screen Not Detected (Not Detect) U Benzodiazepines Scrn Not Detected (Not Detect) Urine Cocaine Screen Not Detected (Not Detect) U Marijuana (THC) Screen Not Detected (Not Detect) Ethyl Alcohol 247 mg/dL COVID-19 (LILIANA) (Negative) COVID-19 Clin Com Influenza Type A (REANNA) (Negative) Influenza Type B (REANNA) (Negative) Influenza A & B Note 04/16/22 04/16/22 04/16/22 Range/Units 09:47 09:47 09:47 WBC (4.8-10.8) X10*3/uL RBC (4.60-5.80) X10*6/uL Hgb (14.0-18.0) g/dl Hct (42.0-52.0) % MCV (80.0-98.0) fL MCH (27.0-33.0) pg MCHC (31.0-36.0) g/dl RDW (11.0-16.0) % Plt Count (160-400) X10*3/uL MPV (9.4-12.4) fL Immature Gran % (Auto) (0.0-0.4) % Neut % (Auto) (45-73) % Lymph % (Auto) (20-40) % Dickson % (Auto) (2-11) % Eos % (Auto) (0-4) % Baso % (Auto) (0-2) % Lymph # (Auto) (1.2-4.9) X10*3/uL Dickson # (Auto) (0.1-1.2) X10*3/uL Eos # (Auto) (0.0-0.4) X10*3/uL Baso # (Auto) (0.0-0.2) X10*3/uL Abs Immat Gran (auto) (0.00-0.03) X10*3/uL Absolute Neuts (auto) (2.0-8.3) x10*3/uL Absolute Nucleated RBC (0.0-0.012) X10*3/uL Nucleated RBC % (auto) (0.0-0.2) /100WBC PT 13.5 H (10.0-13.1) SEC INR 1.2 H (0.9-1.1) Sodium (135-145) mmol/L Potassium (3.3-5.1) mmol/L Chloride (96-108) mmol/L Carbon Dioxide (22-29) mmol/L Anion Gap (12-20) BUN (9-16) mg/dL Creatinine (0.5-1.4) mg/dL Estim Creat Clear Calc Estimated GFR Random Glucose (60-115) mg/dL Calcium (8.4-10.2) mg/dL Magnesium (1.6-2.6) mg/dL Total Bilirubin (0.0-1.0) mg/dL Direct Bilirubin (0.0-0.5) mg/dL AST (5-37) U/L ALT (0-40) U/L Alkaline Phosphatase (39-117) U/L Total Protein (6.5-8.0) g/dL Albumin (3.5-5.0) g/dL Salicylates (15-30) mg/dL Urine Opiates Screen (Not Detect) Urine Fentanyl Screen (Not Detect) Acetaminophen (<30) mcg/mL Ur Barbiturates Screen (Not Detect) Ur Phencyclidine Scrn (Not Detect) Ur Amphetamines Screen (Not Detect) U Benzodiazepines Scrn (Not Detect) Urine Cocaine Screen (Not Detect) U Marijuana (THC) Screen (Not Detect) Ethyl Alcohol mg/dL COVID-19 (LILIANA) Negative (Negative) COVID-19 Clin Com See Note Influenza Type A (REANNA) Negative (Negative) Influenza Type B (REANNA) Negative (Negative) Influenza A & B Note See Note 04/16/22 Range/Units 21:25 WBC (4.8-10.8) X10*3/uL RBC (4.60-5.80) X10*6/uL Hgb (14.0-18.0) g/dl Hct (42.0-52.0) % MCV (80.0-98.0) fL MCH (27.0-33.0) pg MCHC (31.0-36.0) g/dl RDW (11.0-16.0) % Plt Count (160-400) X10*3/uL MPV (9.4-12.4) fL Immature Gran % (Auto) (0.0-0.4) % Neut % (Auto) (45-73) % Lymph % (Auto) (20-40) % Dickson % (Auto) (2-11) % Eos % (Auto) (0-4) % Baso % (Auto) (0-2) % Lymph # (Auto) (1.2-4.9) X10*3/uL Dickson # (Auto) (0.1-1.2) X10*3/uL Eos # (Auto) (0.0-0.4) X10*3/uL Baso # (Auto) (0.0-0.2) X10*3/uL Abs Immat Gran (auto) (0.00-0.03) X10*3/uL Absolute Neuts (auto) (2.0-8.3) x10*3/uL Absolute Nucleated RBC (0.0-0.012) X10*3/uL Nucleated RBC % (auto) (0.0-0.2) /100WBC PT (10.0-13.1) SEC INR (0.9-1.1) Sodium 146 H (135-145) mmol/L Potassium 4.2 (3.3-5.1) mmol/L Chloride 110 H (96-108) mmol/L Carbon Dioxide 24 (22-29) mmol/L Anion Gap 16 (12-20) BUN 13 (9-16) mg/dL Creatinine 0.70 (0.5-1.4) mg/dL Estim Creat Clear Calc 105.8 Estimated GFR > 60 Random Glucose 100 (60-115) mg/dL Calcium 9.1 (8.4-10.2) mg/dL Magnesium 1.4 L* (1.6-2.6) mg/dL Total Bilirubin 2.1 H (0.0-1.0) mg/dL Direct Bilirubin 0.6 H (0.0-0.5) mg/dL AST 77 H (5-37) U/L ALT 39 (0-40) U/L Alkaline Phosphatase 79 (39-117) U/L Total Protein 6.2 L (6.5-8.0) g/dL Albumin 3.8 (3.5-5.0) g/dL Salicylates < 5.0 L (15-30) mg/dL Urine Opiates Screen (Not Detect) Urine Fentanyl Screen (Not Detect) Acetaminophen < 17 (<30) mcg/mL Ur Barbiturates Screen (Not Detect) Ur Phencyclidine Scrn (Not Detect) Ur Amphetamines Screen (Not Detect) U Benzodiazepines Scrn (Not Detect) Urine Cocaine Screen (Not Detect) U Marijuana (THC) Screen (Not Detect) Ethyl Alcohol mg/dL COVID-19 (LILIANA) (Negative) COVID-19 Clin Com Influenza Type A (REANNA) (Negative) Influenza Type B (REANNA) (Negative) Influenza A & B Note <Sarahi Rene NP - Last Filed: 04/17/22 02:14> Radiology Impression Discussion of test interpretation with radiology: I have reviewed the radiologist's reading. <MARBIN Cabrera - Last Filed: 04/16/22 18:04> External Record Review prior ED record <MARBIN Cabrera - Last Filed: 04/16/22 18:04> Social Determinants Patient?s care significantly limited by Social Determinants of Health including: Alcoholism and drug addiction in family <MARBIN Cabrera - Last Filed: 04/16/22 18:04> Critical Care Time Critical Care Time Critical Care Time: Yes <MARBIN Cabrera - Last Filed: 04/16/22 18:04> Total Critical Care Time: 35 <MARBIN Cabrera - Last Filed: 04/16/22 18:04> Attestation: I have personally provided critical care time exclusive of time spent on separately billable procedures. Time includes review of lab data, radiology results, discussion with consultants, and monitoring for potential decompensation. Intervention performed as documented. <MARBIN Cabrera - Last Filed: 04/16/22 18:04> Discharge Plan Discharge Clinical Impression: Suicidal ideations, Alcohol intoxication, Ambien accidental overdose <MARBIN Cabrera - Last Filed: 04/16/22 18:04> Patient Disposition: Still a Patient <MARBIN Cabrera - Last Filed: 04/16/22 18:04> Interventions: Routt-Suicide Risk Severity Scale Last Done: 04/17/22 01:00 <MARBIN Cabrera - Last Filed: 04/16/22 18:04>
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
[2022-04-16 09:57] LABS: MANUAL DIFF FLAG NO
[2022-04-16 10:01] LABS: Basophils Percent Auto 0.3 % (0-2); Eosinophils Percent Auto 0.1 % (0-4); Hematocrit 48.7 % (42.0-52.0); Hemoglobin 16.7 g/dl (14.0-18.0); Imm Gran Abs Auto 0.04 X10*3/uL (0.00-0.03); Imm Gran Pct Auto 0.3 % (0.0-0.4); Lymphocytes Percent Auto 8.2 % (20-40); Mean Corpuscular HGB Conc 34.3 g/dl (31.0-36.0); Mean Corpuscular Hemoglobin 30.3 pg (27.0-33.0); Mean Corpuscular Volume 88.4 fL (80.0-98.0); Mean Platelet Volume 10.1 fL (9.4-12.4); Monocytes Absolute Auto 0.9 X10*3/uL (0.1-1.2); Monocytes Percent Auto 6.9 % (2-11); Neutrophils Absolute Auto 10.6 x10*3/uL (2.0-8.3); Neutrophils Percent Auto 84.2 % (45-73); Platelet Count 158 X10*3/uL (160-400); Red Blood Count 5.51 X10*6/uL (4.60-5.80); Red Cell Distribution Width 14.1 % (11.0-16.0); White Blood Count 12.6 X10*3/uL (4.8-10.8)
[2022-04-16 10:10] LABS: INTERNATIONAL NORM RATIO 1.2 (0.9-1.1); Prothrombin Time 13.5 SEC (10.0-13.1)
[2022-04-16 10:30] LABS: Amphetamine Screen Urine Not Detected (Not Detect); Barbiturates, Urine Not Detected (Not Detect); Benzodiazepines Screen Urine Not Detected (Not Detect); Cannabinoid Screen Urine Not Detected (Not Detect); Cocaine Screen Urine Not Detected (Not Detect); Fentanyl, urine Not Detected (Not Detect); Opiate Screen Urine Not Detected (Not Detect); Phencyclidine Screen Urine Not Detected (Not Detect)
[2022-04-16 10:37] LABS: COVID-19 Test Negative (Negative); IDNOW Serial# 9DB6401D; IDNOW Serial# BCCEAD1C; Influenza A Negative (Negative); Influenza B2 Negative (Negative)
[2022-04-16] MEDS: Albuterol/Iprat 2.5/0.5MG 3 ML AMPUL.NEB INHALE (10:43)
[2022-04-16 10:49] LABS: Alanine Aminotransferase 44 U/L (0-40); Albumin Level 4.4 g/dL (3.5-5.0); Alkaline Phosphatase 83 U/L (39-117); Aspartate Amino Transferase 94 U/L (5-37); Bilirubin Direct 0.4 mg/dL (0.0-0.5); Bilirubin Total 1.2 mg/dL (0.0-1.0); Blood Urea Nitrogen 15 mg/dL (9-16); Calcium 9.3 mg/dL (8.4-10.2); Creatinine Clr Calc Pharmacy 91.4; Estimated Glomerular Filt Rate > 60; Ethanol 247 mg/dL; Glucose Random 203 mg/dL (60-115); Magnesium 1.5 mg/dL (1.6-2.6); Total Protein 7.1 g/dL (6.5-8.0)
[2022-04-16 12:28] LABS: Anion Gap 22 (12-20); Carbon Dioxide 19 mmol/L (22-29); Chloride 107 mmol/L (96-108); Potassium 3.6 mmol/L (3.3-5.1); Sodium 144 mmol/L (135-145)
--- NOTE | 2022-04-16 12:29 | PC.NURSE ---
pt is extremely sleepy at this time will hold off to medicate with magnesium until the pt wakes a little more, vs stable at this time
[2022-04-16] MEDS: Magnesium Oxide 400 MG TABLET PO ×2 (14:50→17:51)
--- NOTE | 2022-04-16 15:58 | PC.NURSE ---
pt continuos on sleeping, respirations even and unlabored. sitter in place
--- NOTE | 2022-04-16 16:55 | MHC.CARE ---
CARE Team attempted to meet with pt in ED09. However, pt was in and out of sleep and unable to engage. ED provider aware.
[2022-04-16] MEDS: Lactated Ringers 1,000 ML 999 ML IV (17:05)
--- NOTE | 2022-04-16 17:06 | ECG_ITS ---
Test Reason : AMBIEN OVERDOSE Blood Pressure : / mmHG Vent. Rate : 078 BPM Atrial Rate : 078 BPM P-R Int : 120 ms QRS Dur : 092 ms QT Int : 420 ms P-R-T Axes : 061 074 082 degrees QTc Int : 478 ms Sinus rhythm with Premature supraventricular complexes Otherwise normal ECG When compared with ECG of 12-JUL-2021 16:49, Premature supraventricular complexes are now Present T wave inversion now evident in Anterior leads Referred By: Gauri Gamboa Electronically Signed By:Xavier Atwood
--- NOTE | 2022-04-16 17:07 | PC.NURSE ---
pt still very sleepy but vs stable, pt admitted to taking 4 tabs of 10mg of ambien. ns on the monitor
[2022-04-16] MEDS: Potassium Chloride ER 20 MEQ TAB.ER.PRT 60 MEQ PO (17:51)
--- NOTE | 2022-04-16 21:27 | MHC.EDTECH ---
patient repeated labs drawn ,vitals sign taken ,pt had sips of water .
[2022-04-16 21:55] LABS: Acetaminophen LAB < 17 mcg/mL (<30); Alanine Aminotransferase 39 U/L (0-40); Albumin Level 3.8 g/dL (3.5-5.0); Alkaline Phosphatase 79 U/L (39-117); Anion Gap 16 (12-20); Aspartate Amino Transferase 77 U/L (5-37); Bilirubin Direct 0.6 mg/dL (0.0-0.5); Bilirubin Total 2.1 mg/dL (0.0-1.0); Blood Urea Nitrogen 13 mg/dL (9-16); Calcium 9.1 mg/dL (8.4-10.2); Carbon Dioxide 24 mmol/L (22-29); Chloride 110 mmol/L (96-108); Creatinine Clr Calc Pharmacy 105.8; Estimated Glomerular Filt Rate > 60; Glucose Random 100 mg/dL (60-115); Magnesium 1.4 mg/dL (1.6-2.6); Potassium 4.2 mmol/L (3.3-5.1); Salicylate < 5.0 mg/dL (15-30); Sodium 146 mmol/L (135-145); Total Protein 6.2 g/dL (6.5-8.0)
--- NOTE | 2022-04-16 22:01 | PC.NURSE ---
This telegraphic typewriter operator assumed care of this PT at 1900. PT calm and cooperative. sleeping but awakens with light touch. PT denies any pain. Denies SI/HI or AVH. Med given as ordered. Sitter in place. PT tolerating PO fluids.
[2022-04-16] MEDS: Magnesium Sulfate/H2O 2 GM/50 ML PIGGYBACK IV (22:59)
[2022-04-17 00:46] VITALS: BP 144/57; PULSE 87; RESP 22; TEMP 37.1; O2SAT 92
[2022-04-17 04:25] VITALS: BP 117/48; PULSE 71; RESP 20; TEMP 36.7; O2SAT 92
--- NOTE | 2022-04-17 05:43 | PC.NURSE ---
PT awake. Slept most of the night. Ambulated to BR independently. Denies any pain. Sitter remains at bedside. Denies SI/HI. Will CTM.
[2022-04-17 05:50] VITALS: BP 156/71; PULSE 92; RESP 22; TEMP 36.8; O2SAT 94
--- NOTE | 2022-04-17 09:23 | PC.NURSE ---
care team at bedside
[2022-04-17] MEDS: Gabapentin 600 MG TABLET PO ×3 (10:10→22:17)
--- NOTE | 2022-04-17 10:56 | MHC.CARE ---
patient is an inpt bed search
--- NOTE | 2022-04-17 13:32 | MHC.CARE ---
Additional contact for patient is Maribel, who works w [employer] and has known Bacilio for many years and would like to provide any support/ clarity re: housing. [phone]
--- NOTE | 2022-04-17 13:42 | PC.NURSE ---
Pt signed CV w/ care team.
[2022-04-17 13:43] VITALS: RESP 18
[2022-04-17 20:45] VITALS: BP 145/71; PULSE 67; TEMP 35.9
[2022-04-17] MEDS: LORazepam 1 MG TABLET PO (22:16)
[2022-04-17] MEDS: traZODone HCL 50 MG TABLET PO (22:17)
[2022-04-17] MEDS: Zolpidem Tartrate 5 MG TABLET PO (22:17)
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
[2022-04-18 06:00] VITALS: BP 138/65; PULSE 67; RESP 16
[2022-04-18] MEDS: Gabapentin 600 MG TABLET PO ×3 (07:58→20:59)
[2022-04-18] MEDS: Thiamine HCL 100 MG TABLET PO (07:58)
[2022-04-18] MEDS: Multivitamin TABLET 1 TAB PO (07:58)
[2022-04-18] MEDS: Escitalopram Oxalate 10 MG TABLET PO (07:58)
[2022-04-18 09:10] LABS: Estimated Average Glucose 94 mg/dL; Hemoglobin A1c % 4.9 %
[2022-04-18 09:57] LABS: Cholesterol 136 mg/dL; HDL Cholesterol 46 mg/dL; LDL Cholesterol Calculated 75 mg/dl; Magnesium 1.8 mg/dL (1.6-2.6); Triglycerides 78 mg/dL
[2022-04-18 10:13] LABS: Folate 12.4 ng/mL (> or = 4.0); Thyroid Stimulating Hormone 1.18 uIU/mL (0.32-4.0); Vitamin B12 467 pg/mL (200-900)
[2022-04-18 18:00] VITALS: BP 122/78; PULSE 68; RESP 16; TEMP 36.2; O2SAT 97
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
[2022-04-18] MEDS: Zolpidem Tartrate 5 MG TABLET PO (20:59)
[2022-04-18] MEDS: traZODone HCL 50 MG TABLET PO (21:00)
[2022-04-19 06:00] VITALS: BP 155/72; PULSE 79; RESP 14; TEMP 36.8; O2SAT 94
[2022-04-19] MEDS: Gabapentin 600 MG TABLET PO ×3 (08:51→20:03)
[2022-04-19] MEDS: Multivitamin TABLET 1 TAB PO (08:51)
[2022-04-19] MEDS: Thiamine HCL 100 MG TABLET PO (08:51)
[2022-04-19] MEDS: Escitalopram Oxalate 10 MG TABLET PO (08:51)
--- NOTE | 2022-04-19 12:23 | HO.PSYCHPN ---
Subjective Subjective Date of Service: 04/19/22 Reason For Visit: Alcohol use disorder; Depression; SI Subjective Notes: Conditional Voluntary Healthcare Proxy: No Guardianship: No Medical Problems Affecting Mental Status: No Interim History: Bacilio has been in contact with Everett Frye today and is saddened when told that his friend suicided in the home yesterday (friend had terminal cancer). He discussed this loss. Discussed his concern that he is now homeless. Hoping we can help him get into [facility]. Reports regime is tolerated. Getting focus and strength to return to work on sobriety after relapse. Medication Compliance: Yes Side effects from medications: No Attending Groups: Intermittent Review of Systems Acute medical concerns: No Medical Review of Systems: unchanged Mental Status Exam Mental Status Exam Patient Appearance: Disheveled Patient Orientation: Person, Place, Time and Situation Level of Consciousness: Alert Patient Behavior: Talkative, Good Eye Contact and Crying Mood Description: Depressed Affect Description: Flat Patient Cognition Impaired: No Ability to Follow Directions: Good Speech Pattern: Spontaneous Speech Memory Description: Intact Hallucinations: None Delusions: Not Present Perceptual Disturbances: Depersonalization and Derealization Thought Process: Distracted Thought Content: positive for Circumstantial, positive for Perseveration and positive for Suicidal Ideation Depressive Symptoms: Insomnia, Increased Irritability, Difficulty Sleeping, Changes in Appetite, Increased Fatigue, Thoughts of /Suicide (denies) and Loss of Energy Judgement: Good Diagnostics Vital Signs (24Hr): Vital Signs - 24 hr 04/18/22 18:00 04/19/22 06:00 Temperature 97.2 F 98.2 F Pulse Rate 68 79 Respiratory Rate 16 14 Blood Pressure 122/78 155/72 H Pulse Oximetry 97 94 Oxygen Delivery Method Room Air Room Air BMI result Body Mass Index 27.3 Labs 04/16/22 09:47 04/16/22 21:25 Labs: Laboratory Results - last 48 hr 04/18/22 04/18/22 08:31 08:31 Estimat Average Glucose 94 Hemoglobin A1c % 4.9 Magnesium 1.8 Triglycerides 78 Cholesterol 136 LDL Cholesterol, Calc 75 HDL Cholesterol 46 Vitamin B12 467 Folate 12.4 TSH 1.18 Free T4 1.00 Imaging Radiology Impressions: ITS Impressions Chest X-Ray 04/16/22 11:14 IMPRESSION: No acute cardiopulmonary process. Head CT 04/16/22 17:31 IMPRESSION: 1. No acute intracranial pathology. 2. Scalp contusion. Medications Medications Current Medications Acetaminophen (Acetaminophen 325 Mg Tablet) 650 mg PO Q6H PRN PRN Reason: Headache/Pain Mild Scale (1-3) Al Hydroxide/Mg Hydroxide (Magnesium Hydrox/Alum Hydrox 30 Ml Oral.Susp) 30 ml PO Q6H PRN PRN Reason: Heartburn/Nausea Escitalopram Oxalate (Escitalopram Oxalate 10 Mg Tablet) 10 mg PO DAILY [facility] Last Admin: 04/19/22 08:51 Dose: 10 mg Gabapentin (Gabapentin 600 Mg Tablet) 600 mg PO TID [facility] Last Admin: 04/19/22 08:51 Dose: 600 mg Hydroxyzine HCl (Hydroxyzine Hcl 25 Mg Tablet) 25 mg PO Q6H PRN PRN Reason: Anxiety Lorazepam (Lorazepam 1 Mg Tablet) 1 mg PO Q4H PRN PRN Reason: CIWA 9-15 Last Admin: 04/17/22 22:16 Dose: 1 mg Magnesium Hydroxide (Milk Of Magnesia 30 Ml Oral.Susp) 30 ml PO DAILY PRN PRN Reason: Constipation Multivitamins/Vitamin C (Multivitamin Tablet) 1 tab PO DAILY [facility] Last Admin: 04/19/22 08:51 Dose: 1 tab Thiamine HCl (Thiamine Hcl 100 Mg Tablet) 100 mg PO DAILY [facility] Last Admin: 04/19/22 08:51 Dose: 100 mg Trazodone HCl (Trazodone Hcl 50 Mg Tablet) 50 mg PO BEDTIME PRN PRN Reason: Insomnia Last Admin: 04/18/22 21:00 Dose: 50 mg Zolpidem Tartrate (Zolpidem Tartrate 5 Mg Tablet) 5 mg PO BEDTIME PRN PRN Reason: Insomnia Last Admin: 04/18/22 20:59 Dose: 5 mg Allergies Allergies Allergy/AdvReac Type Severity Reaction Status Date / Time No Known Allergies Allergy Verified 05/11/20 11:39 [No Known Allergies*] Assessment & Plan Assessment & Plan (1) Ambien accidental overdose: Status: Acute Code(s): T42.6X1A - Poisoning by other antiepileptic and sedative-hypnotic drugs, accidental (unintentional), initial encounter (2) PTSD (post-traumatic stress disorder): Status: Acute Code(s): F43.10 - Post-traumatic stress disorder, unspecified (3) Alcohol use disorder, severe, dependence: Status: Acute Code(s): F10.20 - Alcohol dependence, uncomplicated (4) Mood disorder: Status: Acute Code(s): F39 - Unspecified mood [affective] disorder Plan 62 yo male, hx PTSD, alcohol use disorder. Sober for one year with brief relapse and OD of Ambien and another med in response to [facility]. Pt has been discharged and is now homeless. Pt continues with SI/plan to hang himself. Hx of cirrhosis. Plan: Complete withdrawal, denies current sx. Collateral contact with GI to begin mood stabilizer, OP team. Referral to [facility] 04/19/22: Continue current regime and plan. Patient educated on: medication risk/benefits and therapeutic strategies Informed Consent: understands and further education needed Reason for contiued inpatient stay Substantial Risk for: harm to self, inability to function, rapid decompensation and med/psych decompensation Time Spent With Patient Time: Total time managing care of this patient today ____ minutes.
--- NOTE | 2022-04-19 13:56 | PC.NURSE ---
pt refuses a patch or nicorette gum. states no cravings at this time.
[2022-04-19 19:55] VITALS: BP 157/75; PULSE 75; RESP 16; TEMP 36.4; O2SAT 97
[2022-04-19] MEDS: Zolpidem Tartrate 5 MG TABLET 10 MG PO (20:02)
[2022-04-20 06:00] VITALS: BP 142/77; PULSE 72; RESP 14; TEMP 36.4; O2SAT 96
[2022-04-20] MEDS: Escitalopram Oxalate 10 MG TABLET PO (08:47)
[2022-04-20] MEDS: Thiamine HCL 100 MG TABLET PO (08:47)
[2022-04-20] MEDS: Multivitamin TABLET 1 TAB PO (08:47)
[2022-04-20] MEDS: Gabapentin 600 MG TABLET PO ×3 (08:47→19:54)
--- NOTE | 2022-04-20 15:40 | P.PNPSI_ITS ---
Subjective Subjective Date of Service: 04/20/22 Reason For Visit: Alcohol use disorder; Depression; SI Subjective Notes: Conditional Voluntary Healthcare Proxy: No Guardianship: No Medical Problems Affecting Mental Status: No Interim History: You know, I deserve to be kicked out of [facility]. I need to go to a place where they will hold me more accountable No more of this back and forth stuff I have not been accountable. Reports improvement-more social with peers, more visable. Medication Compliance: Yes Side effects from medications: No Attending Groups: Yes Review of Systems Acute medical concerns: No Medical Review of Systems: unchanged Mental Status Exam Mental Status Exam Patient Appearance: Appropriate Patient Orientation: Person, Place, Time and Situation Level of Consciousness: Alert Patient Behavior: Talkative and Good Eye Contact Mood Description: Depressed Affect Description: Flat Patient Cognition Impaired: No Ability to Follow Directions: Good Speech Pattern: Spontaneous Speech Memory Description: Intact Hallucinations: None Delusions: Not Present Perceptual Disturbances: Depersonalization and Derealization Thought Process: Distracted Thought Content: positive for Circumstantial and positive for Perseveration Depressive Symptoms: Insomnia, Difficulty Sleeping, Changes in Appetite, Thoughts of /Suicide (denies) and Loss of Energy Judgement: Good Diagnostics Vital Signs (24Hr): Vital Signs - 24 hr 04/19/22 19:55 04/20/22 06:00 Temperature 97.6 F 97.5 F Pulse Rate 75 72 Respiratory Rate 16 14 Blood Pressure 157/75 H 142/77 H Pulse Oximetry 97 96 Oxygen Delivery Method Room Air Room Air BMI result Body Mass Index 27.3 Labs 04/16/22 09:47 04/16/22 21:25 Imaging Radiology Impressions: ITS Impressions Chest X-Ray 04/16/22 11:14 IMPRESSION: No acute cardiopulmonary process. Head CT 04/16/22 17:31 IMPRESSION: 1. No acute intracranial pathology. 2. Scalp contusion. Medications Medications Current Medications Acetaminophen (Acetaminophen 325 Mg Tablet) 650 mg PO Q6H PRN PRN Reason: Headache/Pain Mild Scale (1-3) Al Hydroxide/Mg Hydroxide (Magnesium Hydrox/Alum Hydrox 30 Ml Oral.Susp) 30 ml PO Q6H PRN PRN Reason: Heartburn/Nausea Escitalopram Oxalate (Escitalopram Oxalate 10 Mg Tablet) 10 mg PO DAILY [facility] Last Admin: 04/20/22 08:47 Dose: 10 mg Gabapentin (Gabapentin 600 Mg Tablet) 600 mg PO TID [facility] Last Admin: 04/20/22 14:23 Dose: 600 mg Hydroxyzine HCl (Hydroxyzine Hcl 25 Mg Tablet) 25 mg PO Q6H PRN PRN Reason: Anxiety Lorazepam (Lorazepam 1 Mg Tablet) 1 mg PO Q4H PRN PRN Reason: CIWA 9-15 Last Admin: 04/17/22 22:16 Dose: 1 mg Magnesium Hydroxide (Milk Of Magnesia 30 Ml Oral.Susp) 30 ml PO DAILY PRN PRN Reason: Constipation Multivitamins/Vitamin C (Multivitamin Tablet) 1 tab PO DAILY [facility] Last Admin: 04/20/22 08:47 Dose: 1 tab Thiamine HCl (Thiamine Hcl 100 Mg Tablet) 100 mg PO DAILY [facility] Last Admin: 04/20/22 08:47 Dose: 100 mg Trazodone HCl (Trazodone Hcl 50 Mg Tablet) 50 mg PO BEDTIME PRN PRN Reason: Insomnia Last Admin: 04/18/22 21:00 Dose: 50 mg Zolpidem Tartrate (Zolpidem Tartrate 5 Mg Tablet) 10 mg PO BEDTIME PRN PRN Reason: Insomnia Last Admin: 04/19/22 20:02 Dose: 10 mg Allergies Allergies Allergy/AdvReac Type Severity Reaction Status Date / Time No Known Allergies Allergy Verified 05/11/20 11:39 [No Known Allergies*] Assessment & Plan Assessment & Plan (1) Ambien accidental overdose: Status: Acute Code(s): T42.6X1A - Poisoning by other antiepileptic and sedative-hypnotic drugs, accidental (unintentional), initial encounter (2) PTSD (post-traumatic stress disorder): Status: Acute Code(s): F43.10 - Post-traumatic stress disorder, unspecified (3) Alcohol use disorder, severe, dependence: Status: Acute Code(s): F10.20 - Alcohol dependence, uncomplicated (4) Mood disorder: Status: Acute Code(s): F39 - Unspecified mood [affective] disorder Plan 62 yo male, hx PTSD, alcohol use disorder. Sober for one year with brief relapse and OD of Ambien and another med in response to increase in activity at his senior living. Pt has been discharged and is now homeless. Pt continues with SI/plan to hang himself. Hx of cirrhosis. Plan: Complete withdrawal, denies current sx. Collateral contact with GI to begin mood stabilizer, OP team. Referral to CSS 04/19/22: Continue current regime and plan. 04/20/22: Continue current plan and regime Encouraged milieu Patient educated on: therapeutic strategies Informed Consent: understands and further education needed Reason for contiued inpatient stay Substantial Risk for: harm to self and rapid decompensation Time Spent With Patient Time: Total time managing care of this patient today 15 minutes.
[2022-04-20] MEDS: Zolpidem Tartrate 5 MG TABLET 10 MG PO (19:54)
[2022-04-20] MEDS: traZODone HCL 50 MG TABLET PO (20:11)
[2022-04-20 20:12] VITALS: BP 137/63; PULSE 63; RESP 16; TEMP 36.4; O2SAT 97
[2022-04-21 06:00] VITALS: BP 132/80; PULSE 69; RESP 14; TEMP 36.6; O2SAT 96
[2022-04-21] MEDS: Gabapentin 600 MG TABLET PO ×3 (08:32→21:06)
[2022-04-21] MEDS: Multivitamin TABLET 1 TAB PO (08:32)
[2022-04-21] MEDS: Escitalopram Oxalate 10 MG TABLET PO (08:32)
[2022-04-21] MEDS: Thiamine HCL 100 MG TABLET PO (08:32)
--- NOTE | 2022-04-21 17:22 | P.PNPSI_ITS ---
Subjective Subjective Date of Service: 04/21/22 Reason For Visit: Alcohol use disorder; Depression; SI Interim History: chart reviewed. Met with patient and discussed with Nursing. Overall no management issues. Reports feeling better from a mood perspective. No medication concerns. Hopeful that he can go to a substance treatment program such as [facility]. Medication Compliance: Yes Side effects from medications: No Attending Groups: Yes Review of Systems Acute medical concerns: No Review of Systems Review of Systems Yes all other systems are reviewed and are negative Mental Status Exam Mental Status Exam Narrative: Pleasant. Engaged. Organized. Euthymic. No SI. No HI. No agitation. No psychosis. Insight and judgment good Diagnostics Vital Signs (24Hr): Vital Signs - 24 hr 04/20/22 20:12 04/21/22 06:00 Temperature 97.6 F 97.8 F Pulse Rate 63 69 Respiratory Rate 16 14 Blood Pressure 137/63 132/80 Pulse Oximetry 97 96 Oxygen Delivery Method Room Air Room Air BMI result Body Mass Index 27.3 Labs 04/16/22 09:47 04/16/22 21:25 Imaging Radiology Impressions: ITS Impressions Chest X-Ray 04/16/22 11:14 IMPRESSION: No acute cardiopulmonary process. Head CT 04/16/22 17:31 IMPRESSION: 1. No acute intracranial pathology. 2. Scalp contusion. Medications Medications Current Medications Acetaminophen (Acetaminophen 325 Mg Tablet) 650 mg PO Q6H PRN PRN Reason: Headache/Pain Mild Scale (1-3) Al Hydroxide/Mg Hydroxide (Magnesium Hydrox/Alum Hydrox 30 Ml Oral.Susp) 30 ml PO Q6H PRN PRN Reason: Heartburn/Nausea Escitalopram Oxalate (Escitalopram Oxalate 10 Mg Tablet) 10 mg PO DAILY [facility] Last Admin: 04/21/22 08:32 Dose: 10 mg Gabapentin (Gabapentin 600 Mg Tablet) 600 mg PO TID [facility] Last Admin: 04/21/22 14:13 Dose: 600 mg Hydroxyzine HCl (Hydroxyzine Hcl 25 Mg Tablet) 25 mg PO Q6H PRN PRN Reason: Anxiety Lorazepam (Lorazepam 1 Mg Tablet) 1 mg PO Q4H PRN PRN Reason: CIWA 9-15 Last Admin: 04/17/22 22:16 Dose: 1 mg Magnesium Hydroxide (Milk Of Magnesia 30 Ml Oral.Susp) 30 ml PO DAILY PRN PRN Reason: Constipation Multivitamins/Vitamin C (Multivitamin Tablet) 1 tab PO DAILY [facility] Last Admin: 04/21/22 08:32 Dose: 1 tab Thiamine HCl (Thiamine Hcl 100 Mg Tablet) 100 mg PO DAILY [facility] Last Admin: 04/21/22 08:32 Dose: 100 mg Trazodone HCl (Trazodone Hcl 50 Mg Tablet) 50 mg PO BEDTIME PRN PRN Reason: Insomnia Last Admin: 04/20/22 20:11 Dose: 50 mg Zolpidem Tartrate (Zolpidem Tartrate 5 Mg Tablet) 10 mg PO BEDTIME PRN PRN Reason: Insomnia Last Admin: 04/20/22 19:54 Dose: 10 mg Allergies Allergies Allergy/AdvReac Type Severity Reaction Status Date / Time No Known Allergies Allergy Verified 05/11/20 11:39 [No Known Allergies*] Assessment & Plan Assessment & Plan (1) Ambien accidental overdose: Status: Acute Code(s): T42.6X1A - Poisoning by other antiepileptic and sedative-hypnotic drugs, accidental (unintentional), initial encounter (2) PTSD (post-traumatic stress disorder): Status: Acute Code(s): F43.10 - Post-traumatic stress disorder, unspecified (3) Alcohol use disorder, severe, dependence: Status: Acute Code(s): F10.20 - Alcohol dependence, uncomplicated (4) Mood disorder: Status: Acute Code(s): F39 - Unspecified mood [affective] disorder Plan 62 yo male, hx PTSD, alcohol use disorder. Sober for one year with brief relapse and OD of Ambien and another med in response to increase in activity at his retirement. Pt has been discharged and is now homeless. Pt continues with SI/plan to hang himself. Hx of cirrhosis. Plan: Complete withdrawal, denies current sx. Collateral contact with GI to begin mood stabilizer, OP team. Referral to CSS 04/19/22: Continue current regime and plan. 04/20/22: Continue current plan and regime Encouraged milieu 04/21/2022: No changes to current treatment plan Reason for contiued inpatient stay Substantial Risk for: rapid decompensation Time Spent With Patient Time: Total time managing care of this patient today ____ minutes.
[2022-04-21 18:00] VITALS: BP 122/60; PULSE 64; TEMP 37.1
[2022-04-21] MEDS: traZODone HCL 50 MG TABLET PO (21:05)
[2022-04-21] MEDS: Zolpidem Tartrate 5 MG TABLET 10 MG PO (21:06)
[2022-04-22 06:00] VITALS: BP 122/66; PULSE 63; RESP 14; TEMP 36.5; O2SAT 97
[2022-04-22] MEDS: Escitalopram Oxalate 10 MG TABLET PO (08:23)
[2022-04-22] MEDS: Multivitamin TABLET 1 TAB PO (08:23)
[2022-04-22] MEDS: Gabapentin 600 MG TABLET PO ×3 (08:23→20:52)
[2022-04-22] MEDS: Thiamine HCL 100 MG TABLET PO (08:23)
--- NOTE | 2022-04-22 13:19 | P.PNPSI_ITS ---
Subjective Subjective Date of Service: 04/22/22 Reason For Visit: Alcohol use disorder; Depression; SI Interim History: Overall no management issues or changes since yesteday. Reports feeling better from a mood perspective. The remains hopeful he can a [facility] program and and [facility] afterwards and if not [facility] then perhaps [facility] or [facility]. We also discussed alternatives to this does not work out such as [facility] and supports there. Medication Compliance: Yes Side effects from medications: No Attending Groups: Yes Review of Systems Acute medical concerns: No Review of Systems Review of Systems Yes all other systems are reviewed and are negative Mental Status Exam Mental Status Exam Narrative: Pleasant. Engaged. Organized. Euthymic. No SI. No HI. No agitation. No psychosis. Insight and judgment good Diagnostics Vital Signs (24Hr): Vital Signs - 24 hr 04/21/22 18:00 04/22/22 06:00 Temperature 98.7 F 97.7 F Pulse Rate 64 63 Respiratory Rate 14 Blood Pressure 122/60 122/66 Pulse Oximetry 97 Oxygen Delivery Method Room Air BMI result Body Mass Index 27.3 Labs 04/16/22 09:47 04/16/22 21:25 Imaging Radiology Impressions: ITS Impressions Chest X-Ray 04/16/22 11:14 IMPRESSION: No acute cardiopulmonary process. Head CT 04/16/22 17:31 IMPRESSION: 1. No acute intracranial pathology. 2. Scalp contusion. Medications Medications Current Medications Acetaminophen (Acetaminophen 325 Mg Tablet) 650 mg PO Q6H PRN PRN Reason: Headache/Pain Mild Scale (1-3) Al Hydroxide/Mg Hydroxide (Magnesium Hydrox/Alum Hydrox 30 Ml Oral.Susp) 30 ml PO Q6H PRN PRN Reason: Heartburn/Nausea Escitalopram Oxalate (Escitalopram Oxalate 10 Mg Tablet) 10 mg PO DAILY [facility] Last Admin: 04/22/22 08:23 Dose: 10 mg Gabapentin (Gabapentin 600 Mg Tablet) 600 mg PO TID [facility] Last Admin: 04/22/22 08:23 Dose: 600 mg Hydroxyzine HCl (Hydroxyzine Hcl 25 Mg Tablet) 25 mg PO Q6H PRN PRN Reason: Anxiety Lorazepam (Lorazepam 1 Mg Tablet) 1 mg PO Q4H PRN PRN Reason: CIWA 9-15 Last Admin: 04/17/22 22:16 Dose: 1 mg Magnesium Hydroxide (Milk Of Magnesia 30 Ml Oral.Susp) 30 ml PO DAILY PRN PRN Reason: Constipation Multivitamins/Vitamin C (Multivitamin Tablet) 1 tab PO DAILY [facility] Last Admin: 04/22/22 08:23 Dose: 1 tab Thiamine HCl (Thiamine Hcl 100 Mg Tablet) 100 mg PO DAILY [facility] Last Admin: 04/22/22 08:23 Dose: 100 mg Trazodone HCl (Trazodone Hcl 50 Mg Tablet) 50 mg PO BEDTIME PRN PRN Reason: Insomnia Last Admin: 04/21/22 21:05 Dose: 50 mg Zolpidem Tartrate (Zolpidem Tartrate 5 Mg Tablet) 10 mg PO BEDTIME PRN PRN Reason: Insomnia Last Admin: 04/21/22 21:06 Dose: 10 mg Allergies Allergies Allergy/AdvReac Type Severity Reaction Status Date / Time No Known Allergies Allergy Verified 05/11/20 11:39 [No Known Allergies*] Assessment & Plan Assessment & Plan (1) Ambien accidental overdose: Status: Acute Code(s): T42.6X1A - Poisoning by other antiepileptic and sedative-hypnotic drugs, accidental (unintentional), initial encounter (2) PTSD (post-traumatic stress disorder): Status: Acute Code(s): F43.10 - Post-traumatic stress disorder, unspecified (3) Alcohol use disorder, severe, dependence: Status: Acute Code(s): F10.20 - Alcohol dependence, uncomplicated (4) Mood disorder: Status: Acute Code(s): F39 - Unspecified mood [affective] disorder Plan 62 yo male, hx PTSD, alcohol use disorder. Sober for one year with brief relapse and OD of Ambien and another med in response to increase in activity at his custodial. Pt has been discharged and is now homeless. Pt continues with SI/plan to hang himself. Hx of cirrhosis. Plan: Complete withdrawal, denies current sx. Collateral contact with GI to begin mood stabilizer, OP team. Referral to CSS 04/19/22: Continue current regime and plan. 04/20/22: Continue current plan and regime Encouraged milieu 04/22/2022: No changes to current treatment plan Reason for contiued inpatient stay Substantial Risk for: rapid decompensation Time Spent With Patient Time: Total time managing care of this patient today ____ minutes.
[2022-04-22 20:20] VITALS: BP 138/66; PULSE 63; TEMP 36.4
[2022-04-22] MEDS: Zolpidem Tartrate 5 MG TABLET 10 MG PO (20:52)
[2022-04-22] MEDS: traZODone HCL 50 MG TABLET PO (20:53)
[2022-04-23 06:00] VITALS: BP 130/69; PULSE 55; RESP 14; TEMP 36.3; O2SAT 95
[2022-04-23] MEDS: Thiamine HCL 100 MG TABLET PO (08:30)
[2022-04-23] MEDS: Multivitamin TABLET 1 TAB PO (08:30)
[2022-04-23] MEDS: Escitalopram Oxalate 10 MG TABLET PO (08:30)
[2022-04-23] MEDS: Gabapentin 600 MG TABLET PO ×3 (08:30→20:58)
[2022-04-23 18:00] VITALS: BP 131/69; PULSE 62; TEMP 36.6
--- NOTE | 2022-04-23 18:32 | HO.PSYCHPN ---
Subjective Subjective Date of Service: 04/23/22 Reason For Visit: Alcohol use disorder; Depression; SI Subjective Notes: Conditional Voluntary Healthcare Proxy: No Guardianship: No Medical Problems Affecting Mental Status: No Interim History: Bacilio discussed his difficulty staying sober. Described self as an ego-[place] with an inferiority complex. States he is the most comfortable when incarcerated as I was not ashamed of myself there. Reports some racing of thoughts, My mind never stops , much self doubt, shame- my daughters and the [facility] staff have not answered my calls. Message left for GI team regarding mood stabilization choices with current cirrhosis. Medication Compliance: Yes Side effects from medications: No Attending Groups: Intermittent Review of Systems Acute medical concerns: No Medical Review of Systems: unchanged Mental Status Exam Mental Status Exam Patient Appearance: Appropriate Patient Orientation: Person, Place, Time and Situation Level of Consciousness: Alert Patient Behavior: Talkative and Good Eye Contact Mood Description: Depressed Affect Description: Flat Patient Cognition Impaired: No Ability to Follow Directions: Good Speech Pattern: Spontaneous Speech Memory Description: Intact Hallucinations: None Delusions: Not Present Perceptual Disturbances: Depersonalization and Derealization Thought Process: Distracted Thought Content: positive for Circumstantial and positive for Perseveration Depressive Symptoms: Insomnia, Difficulty Sleeping, Changes in Appetite, Thoughts of /Suicide (denies) and Loss of Energy Judgement: Good Diagnostics Vital Signs (24Hr): Vital Signs - 24 hr 04/22/22 20:20 04/23/22 06:00 Temperature 97.6 F 97.4 F Pulse Rate 63 55 Respiratory Rate 14 Blood Pressure 138/66 130/69 Pulse Oximetry 95 Oxygen Delivery Method Room Air BMI result Body Mass Index 27.3 Labs 04/16/22 09:47 04/16/22 21:25 Imaging Radiology Impressions: ITS Impressions Chest X-Ray 04/16/22 11:14 IMPRESSION: No acute cardiopulmonary process. Head CT 04/16/22 17:31 IMPRESSION: 1. No acute intracranial pathology. 2. Scalp contusion. Medications Medications Current Medications Acetaminophen (Acetaminophen 325 Mg Tablet) 650 mg PO Q6H PRN PRN Reason: Headache/Pain Mild Scale (1-3) Al Hydroxide/Mg Hydroxide (Magnesium Hydrox/Alum Hydrox 30 Ml Oral.Susp) 30 ml PO Q6H PRN PRN Reason: Heartburn/Nausea Escitalopram Oxalate (Escitalopram Oxalate 10 Mg Tablet) 10 mg PO DAILY [facility] Last Admin: 04/23/22 08:30 Dose: 10 mg Gabapentin (Gabapentin 600 Mg Tablet) 600 mg PO TID [facility] Last Admin: 04/23/22 14:17 Dose: 600 mg Hydroxyzine HCl (Hydroxyzine Hcl 25 Mg Tablet) 25 mg PO Q6H PRN PRN Reason: Anxiety Magnesium Hydroxide (Milk Of Magnesia 30 Ml Oral.Susp) 30 ml PO DAILY PRN PRN Reason: Constipation Multivitamins/Vitamin C (Multivitamin Tablet) 1 tab PO DAILY [facility] Last Admin: 04/23/22 08:30 Dose: 1 tab Thiamine HCl (Thiamine Hcl 100 Mg Tablet) 100 mg PO DAILY [facility] Last Admin: 04/23/22 08:30 Dose: 100 mg Trazodone HCl (Trazodone Hcl 50 Mg Tablet) 50 mg PO BEDTIME PRN PRN Reason: Insomnia Last Admin: 04/22/22 20:53 Dose: 50 mg Zolpidem Tartrate (Zolpidem Tartrate 5 Mg Tablet) 10 mg PO BEDTIME PRN PRN Reason: Insomnia Last Admin: 04/22/22 20:52 Dose: 10 mg Allergies Allergies Allergy/AdvReac Type Severity Reaction Status Date / Time No Known Allergies Allergy Verified 05/11/20 11:39 [No Known Allergies*] Assessment & Plan Assessment & Plan (1) Ambien accidental overdose: Status: Acute Code(s): T42.6X1A - Poisoning by other antiepileptic and sedative-hypnotic drugs, accidental (unintentional), initial encounter (2) PTSD (post-traumatic stress disorder): Status: Acute Code(s): F43.10 - Post-traumatic stress disorder, unspecified (3) Alcohol use disorder, severe, dependence: Status: Acute Code(s): F10.20 - Alcohol dependence, uncomplicated (4) Mood disorder: Status: Acute Code(s): F39 - Unspecified mood [affective] disorder Plan 62 yo male, hx PTSD, alcohol use disorder. Sober for one year with brief relapse and OD of Ambien and another med in response to increase in activity at his [facility]way. Pt has been discharged and is now homeless. Pt continues with SI/plan to hang himself. Hx of cirrhosis. Plan: Complete withdrawal, denies current sx. Collateral contact with GI to begin mood stabilizer, OP team. Referral to CSS 04/19/22: Continue current regime and plan. 04/20/22: Continue current plan and regime Encouraged milieu 04/22/2022: No changes to current treatment plan 04/23/22: Improved, continue current plan. ?[place], Lamictal with GI input. Patient educated on: medication risk/benefits and therapeutic strategies Informed Consent: understands Reason for contiued inpatient stay Substantial Risk for: rapid decompensation Time Spent With Patient Time: Total time managing care of this patient today 25 minutes.
[2022-04-23] MEDS: traZODone HCL 50 MG TABLET PO (20:58)
[2022-04-23] MEDS: Zolpidem Tartrate 5 MG TABLET 10 MG PO (20:59)
[2022-04-24 06:00] VITALS: BP 126/66; PULSE 78; RESP 18
[2022-04-24] MEDS: Thiamine HCL 100 MG TABLET PO (08:32)
[2022-04-24] MEDS: Nicotine 21 MG PATCH.TD24 TRANSDERMA (08:32)
[2022-04-24] MEDS: Gabapentin 600 MG TABLET PO ×3 (08:32→20:39)
[2022-04-24] MEDS: Escitalopram Oxalate 10 MG TABLET PO (08:32)
[2022-04-24] MEDS: Multivitamin TABLET 1 TAB PO (08:32)
[2022-04-24] MEDS: hydrOXYzine HCL 25 MG TABLET PO ×2 (10:15→16:16)
--- NOTE | 2022-04-24 11:40 | P.PNPSI_ITS ---
Subjective Subjective Date of Service: 04/24/22 Reason For Visit: Alcohol use disorder; Depression; SI Subjective Notes: Conditional Voluntary Healthcare Proxy: No Guardianship: No Medical Problems Affecting Mental Status: No Interim History: Reports poor sleep. Discussed racing thoughts as being one of the issues that he finds leads to a break in sobriety. Discussion of potential interventions. Medication Compliance: Yes Side effects from medications: No Attending Groups: Yes Review of Systems Acute medical concerns: No Medical Review of Systems: unchanged Mental Status Exam Mental Status Exam Patient Appearance: Appropriate Patient Orientation: Person, Place, Time and Situation Level of Consciousness: Alert Patient Behavior: Talkative and Good Eye Contact Mood Description: Depressed Affect Description: Flat Patient Cognition Impaired: No Ability to Follow Directions: Good Speech Pattern: Spontaneous Speech Memory Description: Intact Hallucinations: None Delusions: Not Present Perceptual Disturbances: Depersonalization and Derealization Thought Process: Distracted Thought Content: positive for Circumstantial and positive for Perseveration Depressive Symptoms: Insomnia, Difficulty Sleeping, Changes in Appetite, Thoughts of /Suicide (denies) and Loss of Energy Judgement: Good Diagnostics Vital Signs (24Hr): Vital Signs - 24 hr 04/23/22 18:00 Temperature 97.8 F Pulse Rate 62 Blood Pressure 131/69 BMI result Body Mass Index 27.3 Labs 04/16/22 09:47 04/16/22 21:25 Imaging Radiology Impressions: ITS Impressions Chest X-Ray 04/16/22 11:14 IMPRESSION: No acute cardiopulmonary process. Head CT 04/16/22 17:31 IMPRESSION: 1. No acute intracranial pathology. 2. Scalp contusion. Medications Medications Current Medications Acetaminophen (Acetaminophen 325 Mg Tablet) 650 mg PO Q6H PRN PRN Reason: Headache/Pain Mild Scale (1-3) Al Hydroxide/Mg Hydroxide (Magnesium Hydrox/Alum Hydrox 30 Ml Oral.Susp) 30 ml PO Q6H PRN PRN Reason: Heartburn/Nausea Escitalopram Oxalate (Escitalopram Oxalate 10 Mg Tablet) 10 mg PO DAILY [facility] Last Admin: 04/24/22 08:32 Dose: 10 mg Gabapentin (Gabapentin 600 Mg Tablet) 600 mg PO TID [facility] Last Admin: 04/24/22 08:32 Dose: 600 mg Hydroxyzine HCl (Hydroxyzine Hcl 25 Mg Tablet) 25 mg PO Q6H PRN PRN Reason: Anxiety Last Admin: 04/24/22 10:15 Dose: 25 mg [place] Carbonate ([place] Carbonate 300 Mg Tablet) 300 mg PO BEDTIME [facility] Magnesium Hydroxide (Milk Of Magnesia 30 Ml Oral.Susp) 30 ml PO DAILY PRN PRN Reason: Constipation Melatonin (Melatonin 3 Mg Tablet) 3 mg PO BEDTIME PRN PRN Reason: Insomnia Multivitamins/Vitamin C (Multivitamin Tablet) 1 tab PO DAILY [facility] Last Admin: 04/24/22 08:32 Dose: 1 tab Nicotine (Nicotine 21 Mg Patch.Td24) 21 mg TRANSDERMA DAILY [facility] Last Admin: 04/24/22 08:32 Dose: 21 mg Nicotine Polacrilex (Nicotine Polacrilex Lozenge 4 Mg Lozenge) 4 mg BUCCAL Q2H PRN PRN Reason: Nicotine Cravings Thiamine HCl (Thiamine Hcl 100 Mg Tablet) 100 mg PO DAILY [facility] Last Admin: 04/24/22 08:32 Dose: 100 mg Trazodone HCl (Trazodone Hcl 50 Mg Tablet) 50 mg PO BEDTIME PRN PRN Reason: Insomnia Last Admin: 04/23/22 20:58 Dose: 50 mg Zolpidem Tartrate (Zolpidem Tartrate 5 Mg Tablet) 10 mg PO BEDTIME PRN PRN Reason: Insomnia Last Admin: 04/23/22 20:59 Dose: 10 mg Allergies Allergies Allergy/AdvReac Type Severity Reaction Status Date / Time No Known Allergies Allergy Verified 05/11/20 11:39 [No Known Allergies*] Assessment & Plan Assessment & Plan (1) Ambien accidental overdose: Status: Acute Code(s): T42.6X1A - Poisoning by other antiepileptic and sedative-hypnotic drugs, accidental (unintentional), initial encounter (2) PTSD (post-traumatic stress disorder): Status: Acute Code(s): F43.10 - Post-traumatic stress disorder, unspecified (3) Alcohol use disorder, severe, dependence: Status: Acute Code(s): F10.20 - Alcohol dependence, uncomplicated (4) Mood disorder: Status: Acute Code(s): F39 - Unspecified mood [affective] disorder Plan 62 yo male, hx PTSD, alcohol use disorder. Sober for one year with brief relapse and OD of Ambien and another med in response to increase in activity at his intermediate. Pt has been discharged and is now homeless. Pt continues with SI/plan to hang himself. Hx of cirrhosis. Plan: Complete withdrawal, denies current sx. Collateral contact with GI to begin mood stabilizer, OP team. Referral to CSS 04/19/22: Continue current regime and plan. 04/20/22: Continue current plan and regime Encouraged milieu 04/22/2022: No changes to current treatment plan 04/23/22: Improved, continue current plan. ?[place], Lamictal with GI input. 04/24/22: [place] 300 mg HS to assist with mgt of racing thoughts. Discussed need for medical follow up, labs etc. Melatonin HS to assist with sleep Patient educated on: medication risk/benefits and therapeutic strategies Informed Consent: understands and further education needed Reason for contiued inpatient stay Substantial Risk for: harm to self, inability to function and rapid decompensation Time Spent With Patient Time: Total time managing care of this patient today 20 minutes.
[2022-04-24 15:57] VITALS: BP 131/75; PULSE 78; RESP 16; TEMP 36; O2SAT 96
[2022-04-24] MEDS: Lithium Carbonate 300 MG TABLET PO (20:39)
[2022-04-24] MEDS: Zolpidem Tartrate 5 MG TABLET 10 MG PO (20:39)
[2022-04-25 06:00] VITALS: BP 128/72; PULSE 80; RESP 16
[2022-04-25] MEDS: Nicotine 21 MG PATCH.TD24 TRANSDERMA (08:06)
[2022-04-25] MEDS: Multivitamin TABLET 1 TAB PO (08:06)
[2022-04-25] MEDS: Thiamine HCL 100 MG TABLET PO (08:06)
[2022-04-25] MEDS: Gabapentin 600 MG TABLET PO ×3 (08:06→20:33)
[2022-04-25] MEDS: Escitalopram Oxalate 10 MG TABLET PO (08:06)
[2022-04-25] MEDS: hydrOXYzine HCL 25 MG TABLET PO ×2 (08:17→14:21)
[2022-04-25 15:45] VITALS: BP 142/64; PULSE 69; TEMP 36.9
[2022-04-25] MEDS: Nicotine Polacrilex Lozenge 4 MG LOZENGE BUCCAL (17:27)
--- NOTE | 2022-04-25 18:37 | P.PNPSI_ITS ---
Subjective Subjective Date of Service: 04/25/22 Reason For Visit: Alcohol use disorder; Depression; SI Subjective Notes: Conditional Voluntary Healthcare Proxy: No Guardianship: No Medical Problems Affecting Mental Status: No Interim History: Up at 3am-insomnia still an active sx. Discussed options Further discussion of [place]-which he reports was tolerated last evening and options without the need for labs, less intense medical follow up. Medication Compliance: Yes Side effects from medications: No Attending Groups: Yes Review of Systems Medical Review of Systems: unchanged Mental Status Exam Mental Status Exam Patient Appearance: Appropriate Patient Orientation: Person, Place, Time and Situation Level of Consciousness: Alert Patient Behavior: Talkative and Good Eye Contact Mood Description: Depressed Affect Description: Flat Patient Cognition Impaired: No Ability to Follow Directions: Good Speech Pattern: Spontaneous Speech Memory Description: Intact Hallucinations: None Delusions: Not Present Perceptual Disturbances: Depersonalization and Derealization Thought Process: Distracted Thought Content: positive for Circumstantial and positive for Perseveration Depressive Symptoms: Insomnia, Difficulty Sleeping, Changes in Appetite, Thoughts of /Suicide (denies) and Loss of Energy Judgement: Good Diagnostics Vital Signs (24Hr): Vital Signs - 24 hr 04/25/22 06:00 Pulse Rate 80 Respiratory Rate 16 Blood Pressure 128/72 Oxygen Delivery Method Room Air BMI result Body Mass Index 27.3 Labs 04/16/22 09:47 04/16/22 21:25 Imaging Radiology Impressions: ITS Impressions Chest X-Ray 04/16/22 11:14 IMPRESSION: No acute cardiopulmonary process. Head CT 04/16/22 17:31 IMPRESSION: 1. No acute intracranial pathology. 2. Scalp contusion. Medications Medications Current Medications Acetaminophen (Acetaminophen 325 Mg Tablet) 650 mg PO Q6H PRN PRN Reason: Headache/Pain Mild Scale (1-3) Al Hydroxide/Mg Hydroxide (Magnesium Hydrox/Alum Hydrox 30 Ml Oral.Susp) 30 ml PO Q6H PRN PRN Reason: Heartburn/Nausea Escitalopram Oxalate (Escitalopram Oxalate 10 Mg Tablet) 10 mg PO DAILY [facility] Last Admin: 04/25/22 08:06 Dose: 10 mg Gabapentin (Gabapentin 600 Mg Tablet) 600 mg PO TID [facility] Last Admin: 04/25/22 14:00 Dose: 600 mg Hydroxyzine HCl (Hydroxyzine Hcl 25 Mg Tablet) 25 mg PO Q6H PRN PRN Reason: Anxiety Last Admin: 04/25/22 14:21 Dose: 25 mg [place] Carbonate ([place] Carbonate 300 Mg Tablet) 300 mg PO BEDTIME [facility] Last Admin: 04/24/22 20:39 Dose: 300 mg Magnesium Hydroxide (Milk Of Magnesia 30 Ml Oral.Susp) 30 ml PO DAILY PRN PRN Reason: Constipation Melatonin (Melatonin 3 Mg Tablet) 3 mg PO BEDTIME PRN PRN Reason: Insomnia Multivitamins/Vitamin C (Multivitamin Tablet) 1 tab PO DAILY [facility] Last Admin: 04/25/22 08:06 Dose: 1 tab Nicotine (Nicotine 21 Mg Patch.Td24) 21 mg TRANSDERMA DAILY [facility] Last Admin: 04/25/22 08:06 Dose: 21 mg Nicotine Polacrilex (Nicotine Polacrilex Lozenge 4 Mg Lozenge) 4 mg BUCCAL Q2H PRN PRN Reason: Nicotine Cravings Last Admin: 04/25/22 17:27 Dose: 4 mg Thiamine HCl (Thiamine Hcl 100 Mg Tablet) 100 mg PO DAILY [facility] Last Admin: 04/25/22 08:06 Dose: 100 mg Trazodone HCl (Trazodone Hcl 50 Mg Tablet) 50 mg PO BEDTIME PRN PRN Reason: Insomnia Last Admin: 04/23/22 20:58 Dose: 50 mg Zolpidem Tartrate (Zolpidem Tartrate 5 Mg Tablet) 10 mg PO BEDTIME PRN PRN Reason: Insomnia Last Admin: 04/24/22 20:39 Dose: 10 mg Allergies Allergies Allergy/AdvReac Type Severity Reaction Status Date / Time No Known Allergies Allergy Verified 05/11/20 11:39 [No Known Allergies*] Assessment & Plan Assessment & Plan (1) Ambien accidental overdose: Status: Acute Code(s): T42.6X1A - Poisoning by other antiepileptic and sedative-hypnotic drugs, accidental (unintentional), initial encounter (2) PTSD (post-traumatic stress disorder): Status: Acute Code(s): F43.10 - Post-traumatic stress disorder, unspecified (3) Alcohol use disorder, severe, dependence: Status: Acute Code(s): F10.20 - Alcohol dependence, uncomplicated (4) Mood disorder: Status: Acute Code(s): F39 - Unspecified mood [affective] disorder Plan 62 yo male, hx PTSD, alcohol use disorder. Sober for one year with brief relapse and OD of Ambien and another med in response to increase in activity at his senior care. Pt has been discharged and is now homeless. Pt continues with SI/plan to hang himself. Hx of cirrhosis. Plan: Complete withdrawal, denies current sx. Collateral contact with GI to begin mood stabilizer, OP team. Referral to [facility] 04/19/22: Continue current regime and plan. 04/20/22: Continue current plan and regime Encouraged milieu 04/22/2022: No changes to current treatment plan 04/23/22: Improved, continue current plan. ?[place], Lamictal with GI input. 04/25/22: Discontinue [place] Invega 3 mg daily Discontinue Trazodone Remeron 7.5 mg HS Patient educated on: medication risk/benefits Informed Consent: understands and further education needed Reason for contiued inpatient stay Substantial Risk for: harm to self, inability to function and rapid decompensation Time Spent With Patient Time: Total time managing care of this patient today 20 minutes.
[2022-04-25] MEDS: Mirtazapine 7.5 MG TABLET PO (20:33)
[2022-04-25] MEDS: Zolpidem Tartrate 5 MG TABLET 10 MG PO (20:33)
[2022-04-26 06:00] VITALS: BP 134/76; PULSE 74; RESP 14; TEMP 36.7; O2SAT 95
[2022-04-26 07:00] VITALS: BMI 29.2
[2022-04-26] MEDS: Paliperidone ER 3 MG TAB.ER.24 PO (08:21)
[2022-04-26] MEDS: Nicotine 21 MG PATCH.TD24 TRANSDERMA (08:21)
[2022-04-26] MEDS: Gabapentin 600 MG TABLET PO ×3 (08:21→20:54)
[2022-04-26] MEDS: Escitalopram Oxalate 10 MG TABLET PO (08:21)
[2022-04-26] MEDS: Multivitamin TABLET 1 TAB PO (08:21)
[2022-04-26] MEDS: Thiamine HCL 100 MG TABLET PO (08:22)
[2022-04-26] MEDS: hydrOXYzine HCL 25 MG TABLET PO ×2 (11:17→17:42)
[2022-04-26 14:08] VITALS: BP 144/70; PULSE 80; RESP 14; TEMP 36.7
--- NOTE | 2022-04-26 16:21 | P.PNPSI_ITS ---
Subjective Subjective Date of Service: 04/26/22 Reason For Visit: Alcohol use disorder; Depression; SI Subjective Notes: Conditional Voluntary Healthcare Proxy: No Guardianship: No Medical Problems Affecting Mental Status: No Interim History: Active participant in treatment. Calling facilities, [facility] Continues to have insomnia. Will increase Mirtazapine Medication Compliance: Yes Side effects from medications: No Attending Groups: Yes Review of Systems Acute medical concerns: No Medical Review of Systems: unchanged Mental Status Exam Mental Status Exam Patient Appearance: Appropriate Patient Orientation: Person, Place, Time and Situation Level of Consciousness: Alert Patient Behavior: Talkative and Good Eye Contact Mood Description: Depressed Affect Description: Flat Patient Cognition Impaired: No Ability to Follow Directions: Good Speech Pattern: Spontaneous Speech Memory Description: Intact Hallucinations: None Delusions: Not Present Perceptual Disturbances: Depersonalization and Derealization Thought Process: Distracted Thought Content: positive for Circumstantial and positive for Perseveration Depressive Symptoms: Insomnia, Difficulty Sleeping, Changes in Appetite, Thoughts of /Suicide (denies) and Loss of Energy Judgement: Good Diagnostics Vital Signs (24Hr): Vital Signs - 24 hr 04/26/22 06:00 04/26/22 14:08 Temperature 98.1 F 98.1 F Pulse Rate 74 80 Respiratory Rate 14 14 Blood Pressure 134/76 144/70 H Pulse Oximetry 95 Oxygen Delivery Method Room Air BMI result Body Mass Index 29.2 Labs 04/16/22 09:47 04/16/22 21:25 Imaging Radiology Impressions: ITS Impressions Chest X-Ray 04/16/22 11:14 IMPRESSION: No acute cardiopulmonary process. Head CT 04/16/22 17:31 IMPRESSION: 1. No acute intracranial pathology. 2. Scalp contusion. Medications Medications Current Medications Acetaminophen (Acetaminophen 325 Mg Tablet) 650 mg PO Q6H PRN PRN Reason: Headache/Pain Mild Scale (1-3) Al Hydroxide/Mg Hydroxide (Magnesium Hydrox/Alum Hydrox 30 Ml Oral.Susp) 30 ml PO Q6H PRN PRN Reason: Heartburn/Nausea Escitalopram Oxalate (Escitalopram Oxalate 10 Mg Tablet) 10 mg PO DAILY [facility] Last Admin: 04/26/22 08:21 Dose: 10 mg Gabapentin (Gabapentin 600 Mg Tablet) 600 mg PO TID [facility] Last Admin: 04/26/22 14:03 Dose: 600 mg Hydroxyzine HCl (Hydroxyzine Hcl 25 Mg Tablet) 25 mg PO Q6H PRN PRN Reason: Anxiety Last Admin: 04/26/22 11:17 Dose: 25 mg Magnesium Hydroxide (Milk Of Magnesia 30 Ml Oral.Susp) 30 ml PO DAILY PRN PRN Reason: Constipation Melatonin (Melatonin 3 Mg Tablet) 3 mg PO BEDTIME PRN PRN Reason: Insomnia Mirtazapine (Mirtazapine 7.5 Mg Tablet) 7.5 mg PO BEDTIME [facility] Last Admin: 04/25/22 20:33 Dose: 7.5 mg Multivitamins/Vitamin C (Multivitamin Tablet) 1 tab PO DAILY [facility] Last Admin: 04/26/22 08:21 Dose: 1 tab Nicotine (Nicotine 21 Mg Patch.Td24) 21 mg TRANSDERMA DAILY [facility] Last Admin: 04/26/22 08:21 Dose: 21 mg Nicotine Polacrilex (Nicotine Polacrilex Lozenge 4 Mg Lozenge) 4 mg BUCCAL Q2H PRN PRN Reason: Nicotine Cravings Last Admin: 04/25/22 17:27 Dose: 4 mg Paliperidone (Paliperidone Er 3 Mg Tab.Er.24) 3 mg PO DAILY [facility] Last Admin: 04/26/22 08:21 Dose: 3 mg Thiamine HCl (Thiamine Hcl 100 Mg Tablet) 100 mg PO DAILY [facility] Last Admin: 04/26/22 08:22 Dose: 100 mg Zolpidem Tartrate (Zolpidem Tartrate 5 Mg Tablet) 10 mg PO BEDTIME PRN PRN Reason: Insomnia Last Admin: 04/25/22 20:33 Dose: 10 mg Allergies Allergies Allergy/AdvReac Type Severity Reaction Status Date / Time No Known Allergies Allergy Verified 05/11/20 11:39 [No Known Allergies*] Assessment & Plan Assessment & Plan (1) Ambien accidental overdose: Status: Acute Code(s): T42.6X1A - Poisoning by other antiepileptic and sedative-hypnotic drugs, accidental (unintentional), initial encounter (2) PTSD (post-traumatic stress disorder): Status: Acute Code(s): F43.10 - Post-traumatic stress disorder, unspecified (3) Alcohol use disorder, severe, dependence: Status: Acute Code(s): F10.20 - Alcohol dependence, uncomplicated (4) Mood disorder: Status: Acute Code(s): F39 - Unspecified mood [affective] disorder Plan 62 yo male, hx PTSD, alcohol use disorder. Sober for one year with brief relapse and OD of Ambien and another med in response to increase in activity at his retirement. Pt has been discharged and is now homeless. Pt continues with SI/plan to hang himself. Hx of cirrhosis. Plan: Complete withdrawal, denies current sx. Collateral contact with GI to begin mood stabilizer, OP team. Referral to [facility] 04/19/22: Continue current regime and plan. 04/20/22: Continue current plan and regime Encouraged milieu 04/22/2022: No changes to current treatment plan 04/23/22: Improved, continue current plan. ?[place], Lamictal with GI input. 04/25/22: Discontinue [place] Invega 3 mg daily Discontinue Trazodone Remeron 7.5 mg HS 04/26/22: Increase Remeron to 15 mg HS Patient educated on: medication risk/benefits Informed Consent: understands Reason for contiued inpatient stay Substantial Risk for: rapid decompensation Time Spent With Patient Time: Total time managing care of this patient today 15 minutes.
[2022-04-26] MEDS: Nicotine Polacrilex Lozenge 4 MG LOZENGE BUCCAL (16:52)
[2022-04-26 20:50] VITALS: BP 128/73; PULSE 63; TEMP 37
[2022-04-26] MEDS: Zolpidem Tartrate 5 MG TABLET 10 MG PO (20:53)
[2022-04-26] MEDS: Melatonin 3 MG TABLET PO (20:54)
[2022-04-26] MEDS: Mirtazapine 15 MG TABLET PO (20:54)
[2022-04-27 06:00] VITALS: BP 134/64; PULSE 64; RESP 16; TEMP 35.8; O2SAT 98
[2022-04-27] MEDS: Multivitamin TABLET 1 TAB PO (08:29)
[2022-04-27] MEDS: Gabapentin 600 MG TABLET PO ×3 (08:29→20:24)
[2022-04-27] MEDS: Escitalopram Oxalate 10 MG TABLET PO (08:29)
[2022-04-27] MEDS: Paliperidone ER 3 MG TAB.ER.24 PO (08:29)
[2022-04-27] MEDS: Thiamine HCL 100 MG TABLET PO (08:29)
[2022-04-27] MEDS: Nicotine 21 MG PATCH.TD24 TRANSDERMA (08:29)
[2022-04-27] MEDS: hydrOXYzine HCL 25 MG TABLET PO ×2 (08:44→16:29)
--- NOTE | 2022-04-27 15:55 | HO.PSYCHPN ---
Subjective Subjective Date of Service: 04/27/22 Reason For Visit: Alcohol use disorder; Depression; SI Subjective Notes: Conditional Voluntary Healthcare Proxy: No Guardianship: No Medical Problems Affecting Mental Status: No Interim History: Sleep continues to be interrupted, It may be because I left the patch on last night . Discussed making a change in agent. Medication Compliance: Yes Side effects from medications: No Attending Groups: Yes Review of Systems Acute medical concerns: No Medical Review of Systems: unchanged Mental Status Exam Mental Status Exam Patient Appearance: Appropriate Patient Orientation: Person, Place, Time and Situation Level of Consciousness: Alert Patient Behavior: Talkative and Good Eye Contact Mood Description: Depressed Affect Description: Flat Patient Cognition Impaired: No Ability to Follow Directions: Good Speech Pattern: Spontaneous Speech Memory Description: Intact Hallucinations: None Delusions: Not Present Perceptual Disturbances: Depersonalization and Derealization Thought Process: Distracted Thought Content: positive for Circumstantial and positive for Perseveration Depressive Symptoms: Insomnia, Difficulty Sleeping, Changes in Appetite, Thoughts of /Suicide (denies) and Loss of Energy Judgement: Good Diagnostics Vital Signs (24Hr): Vital Signs - 24 hr 04/26/22 20:50 04/27/22 06:00 Temperature 98.6 F 96.5 F L Pulse Rate 63 64 Respiratory Rate 16 Blood Pressure 128/73 134/64 Pulse Oximetry 98 Oxygen Delivery Method Room Air BMI result Body Mass Index 29.2 Labs 04/16/22 09:47 04/16/22 21:25 Imaging Radiology Impressions: ITS Impressions Chest X-Ray 04/16/22 11:14 IMPRESSION: No acute cardiopulmonary process. Head CT 04/16/22 17:31 IMPRESSION: 1. No acute intracranial pathology. 2. Scalp contusion. Medications Medications Current Medications Acetaminophen (Acetaminophen 325 Mg Tablet) 650 mg PO Q6H PRN PRN Reason: Headache/Pain Mild Scale (1-3) Al Hydroxide/Mg Hydroxide (Magnesium Hydrox/Alum Hydrox 30 Ml Oral.Susp) 30 ml PO Q6H PRN PRN Reason: Heartburn/Nausea Escitalopram Oxalate (Escitalopram Oxalate 10 Mg Tablet) 10 mg PO DAILY [facility] Last Admin: 04/27/22 08:29 Dose: 10 mg Gabapentin (Gabapentin 600 Mg Tablet) 600 mg PO TID [facility] Last Admin: 04/27/22 14:14 Dose: 600 mg Hydroxyzine HCl (Hydroxyzine Hcl 25 Mg Tablet) 25 mg PO Q6H PRN PRN Reason: Anxiety Last Admin: 04/27/22 08:44 Dose: 25 mg Magnesium Hydroxide (Milk Of Magnesia 30 Ml Oral.Susp) 30 ml PO DAILY PRN PRN Reason: Constipation Melatonin (Melatonin 3 Mg Tablet) 3 mg PO BEDTIME PRN PRN Reason: Insomnia Last Admin: 04/26/22 20:54 Dose: 3 mg Multivitamins/Vitamin C (Multivitamin Tablet) 1 tab PO DAILY [facility] Last Admin: 04/27/22 08:29 Dose: 1 tab Nicotine (Nicotine 21 Mg Patch.Td24) 21 mg TRANSDERMA DAILY [facility] Last Admin: 04/27/22 08:29 Dose: 21 mg Nicotine Polacrilex (Nicotine Polacrilex Lozenge 4 Mg Lozenge) 4 mg BUCCAL Q2H PRN PRN Reason: Nicotine Cravings Last Admin: 04/26/22 16:52 Dose: 4 mg Paliperidone (Paliperidone Er 3 Mg Tab.Er.24) 3 mg PO DAILY [facility] Last Admin: 04/27/22 08:29 Dose: 3 mg Quetiapine Fumarate (Quetiapine Fumarate 50 Mg Tablet) 50 mg PO BEDTIME [facility] Thiamine HCl (Thiamine Hcl 100 Mg Tablet) 100 mg PO DAILY [facility] Last Admin: 04/27/22 08:29 Dose: 100 mg Zolpidem Tartrate (Zolpidem Tartrate 5 Mg Tablet) 10 mg PO BEDTIME PRN PRN Reason: Insomnia Last Admin: 04/26/22 20:53 Dose: 10 mg Allergies Allergies Allergy/AdvReac Type Severity Reaction Status Date / Time No Known Allergies Allergy Verified 05/11/20 11:39 [No Known Allergies*] Assessment & Plan Assessment & Plan (1) Ambien accidental overdose: Status: Acute Code(s): T42.6X1A - Poisoning by other antiepileptic and sedative-hypnotic drugs, accidental (unintentional), initial encounter (2) PTSD (post-traumatic stress disorder): Status: Acute Code(s): F43.10 - Post-traumatic stress disorder, unspecified (3) Alcohol use disorder, severe, dependence: Status: Acute Code(s): F10.20 - Alcohol dependence, uncomplicated (4) Mood disorder: Status: Acute Code(s): F39 - Unspecified mood [affective] disorder Plan 62 yo male, hx PTSD, alcohol use disorder. Sober for one year with brief relapse and OD of Ambien and another med in response to increase in activity at his detention. Pt has been discharged and is now homeless. Pt continues with SI/plan to hang himself. Hx of cirrhosis. Plan: Complete withdrawal, denies current sx. Collateral contact with GI to begin mood stabilizer, OP team. Referral to [facility] 04/19/22: Continue current regime and plan. 04/20/22: Continue current plan and regime Encouraged milieu 04/22/2022: No changes to current treatment plan 04/23/22: Improved, continue current plan. ?[place], Lamictal with GI input. 04/25/22: Discontinue [place] Invega 3 mg daily Discontinue Trazodone Remeron 7.5 mg HS 04/27/22: Discontinue Remeron Seroquel 50 mg HS Patient educated on: medication risk/benefits Informed Consent: understands Reason for contiued inpatient stay Substantial Risk for: harm to self, inability to function and rapid decompensation Time Spent With Patient Time: Total time managing care of this patient today 20 minutes.
[2022-04-27 18:00] VITALS: BP 113/57; PULSE 71; RESP 16; TEMP 36.6; O2SAT 94
[2022-04-27] MEDS: Zolpidem Tartrate 5 MG TABLET 10 MG PO (20:23)
[2022-04-27] MEDS: QUEtiapine Fumarate 50 MG TABLET PO (20:24)
[2022-04-27] MEDS: Melatonin 3 MG TABLET PO (20:24)
[2022-04-28 06:30] VITALS: BP 122/69; PULSE 68; RESP 18; TEMP 36.2; O2SAT 96
[2022-04-28] MEDS: Paliperidone ER 3 MG TAB.ER.24 PO (08:46)
[2022-04-28] MEDS: Thiamine HCL 100 MG TABLET PO (08:46)
[2022-04-28] MEDS: Escitalopram Oxalate 10 MG TABLET PO (08:46)
[2022-04-28] MEDS: Multivitamin TABLET 1 TAB PO (08:46)
[2022-04-28] MEDS: Gabapentin 600 MG TABLET PO ×3 (08:46→19:52)
[2022-04-28] MEDS: hydrOXYzine HCL 25 MG TABLET PO ×2 (08:51→16:48)
[2022-04-28] MEDS: Nicotine 21 MG PATCH.TD24 TRANSDERMA (08:52)
--- NOTE | 2022-04-28 09:47 | HO.PSYCHPN ---
Subjective Subjective Date of Service: 04/28/22 Reason For Visit: Alcohol use disorder; Depression; SI Interim History: Met with patient; discussed in team; reviewed progress notes from primary provider. Patient says that he is doing better and denies depression or SI. He is very grateful for admission and thinks the staff readily. Patient says he is still having trouble sleeping. He agrees to try clonidine at bedtime to see if that can help and instead make Seroquel and p.r.n.. Mental Status Exam Mental Status Exam Patient Appearance: Appropriate Patient Orientation: Person, Place, Time and Situation Level of Consciousness: Alert Patient Behavior: Appropriate, Talkative and Good Eye Contact Mood Description: Depressed (much less so) Affect Description: Calm and Anxious Patient Cognition Impaired: No Ability to Follow Directions: Good Speech Pattern: Clear and Spontaneous Speech Memory Description: Intact Hallucinations: None Delusions: Not Present Perceptual Disturbances: Depersonalization and Derealization Thought Process: Goal Oriented Thought Content: positive for Intact (No SI; no HI) Depressive Symptoms: Insomnia and Difficulty Sleeping Judgement and Insight: Fair Diagnostics Vital Signs (24Hr): Vital Signs - 24 hr 04/27/22 18:00 Temperature 97.9 F Pulse Rate 71 Respiratory Rate 16 Blood Pressure 113/57 L Pulse Oximetry 94 Oxygen Delivery Method Room Air BMI result Body Mass Index 29.2 Labs 04/16/22 09:47 04/16/22 21:25 Imaging Radiology Impressions: ITS Impressions Chest X-Ray 04/16/22 11:14 IMPRESSION: No acute cardiopulmonary process. Head CT 04/16/22 17:31 IMPRESSION: 1. No acute intracranial pathology. 2. Scalp contusion. Medications Medications Current Medications Acetaminophen (Acetaminophen 325 Mg Tablet) 650 mg PO Q6H PRN PRN Reason: Headache/Pain Mild Scale (1-3) Al Hydroxide/Mg Hydroxide (Magnesium Hydrox/Alum Hydrox 30 Ml Oral.Susp) 30 ml PO Q6H PRN PRN Reason: Heartburn/Nausea Escitalopram Oxalate (Escitalopram Oxalate 10 Mg Tablet) 10 mg PO DAILY [facility] Last Admin: 04/28/22 08:46 Dose: 10 mg Gabapentin (Gabapentin 600 Mg Tablet) 600 mg PO TID [facility] Last Admin: 04/28/22 08:46 Dose: 600 mg Hydroxyzine HCl (Hydroxyzine Hcl 25 Mg Tablet) 25 mg PO Q6H PRN PRN Reason: Anxiety Last Admin: 02/11/23 08:51 Dose: 25 mg Magnesium Hydroxide (Milk Of Magnesia 30 Ml Oral.Susp) 30 ml PO DAILY PRN PRN Reason: Constipation Melatonin (Melatonin 3 Mg Tablet) 3 mg PO BEDTIME PRN PRN Reason: Insomnia Last Admin: 04/27/22 20:24 Dose: 3 mg Multivitamins/Vitamin C (Multivitamin Tablet) 1 tab PO DAILY [facility] Last Admin: 04/28/22 08:46 Dose: 1 tab Nicotine (Nicotine 21 Mg Patch.Td24) 21 mg TRANSDERMA DAILY [facility] Last Admin: 04/28/22 08:52 Dose: 21 mg Nicotine Polacrilex (Nicotine Polacrilex Lozenge 4 Mg Lozenge) 4 mg BUCCAL Q2H PRN PRN Reason: Nicotine Cravings Last Admin: 04/26/22 16:52 Dose: 4 mg Paliperidone (Paliperidone Er 3 Mg Tab.Er.24) 3 mg PO DAILY [facility] Last Admin: 04/28/22 08:46 Dose: 3 mg Quetiapine Fumarate (Quetiapine Fumarate 50 Mg Tablet) 50 mg PO BEDTIME [facility] Last Admin: 04/27/22 20:24 Dose: 50 mg Thiamine HCl (Thiamine Hcl 100 Mg Tablet) 100 mg PO DAILY [facility] Last Admin: 04/28/22 08:46 Dose: 100 mg Zolpidem Tartrate (Zolpidem Tartrate 5 Mg Tablet) 10 mg PO BEDTIME PRN PRN Reason: Insomnia Last Admin: 04/27/22 20:23 Dose: 10 mg Allergies Allergies Allergy/AdvReac Type Severity Reaction Status Date / Time No Known Allergies Allergy Verified 05/11/20 11:39 [No Known Allergies*] Assessment & Plan Assessment & Plan (1) Ambien accidental overdose: Status: Acute Code(s): T42.6X1A - Poisoning by other antiepileptic and sedative-hypnotic drugs, accidental (unintentional), initial encounter (2) PTSD (post-traumatic stress disorder): Status: Acute Code(s): F43.10 - Post-traumatic stress disorder, unspecified (3) Alcohol use disorder, severe, dependence: Status: Acute Code(s): F10.20 - Alcohol dependence, uncomplicated (4) Mood disorder: Status: Acute Code(s): F39 - Unspecified mood [affective] disorder Plan 62 yo male, hx PTSD, alcohol use disorder. Sober for one year with brief relapse and OD of Ambien and another med in response to increase in activity at his custodial. Pt has been discharged and is now homeless. Pt continues with SI/plan to hang himself. Hx of cirrhosis. Plan: Complete withdrawal, denies current sx. Collateral contact with GI to begin mood stabilizer, OP team. Referral to [facility] 04/19/22: Continue current regime and plan. 04/20/22: Continue current plan and regime Encouraged milieu 04/22/2022: No changes to current treatment plan 04/23/22: Improved, continue current plan. ?[place], Lamictal with GI input. 04/25/22: Discontinue [place] Invega 3 mg daily Discontinue Trazodone Remeron 7.5 mg HS 04/27/22: Discontinue Remeron Seroquel 50 mg HS 04/28 start clonidine 0.1 mg q.h.s. (vitals reviewed and BP WNL) Change Seroquel to p.r.n.; hoping to reduce use of antipsychotics Patient educated on: diagnosis and medication risk/benefits Informed Consent: understands Reason for contiued inpatient stay Substantial Risk for: stable for discharge Time Spent With Patient Time: Total time managing care of this patient today ____ minutes.
[2022-04-28] MEDS: Nicotine Polacrilex Lozenge 4 MG LOZENGE BUCCAL (13:51)
[2022-04-28 18:00] VITALS: BP 118/78; PULSE 86; RESP 16; TEMP 36.6; O2SAT 96
[2022-04-28] MEDS: cloNIDine HCL 0.1 MG TABLET PO (19:52)
[2022-04-28] MEDS: Melatonin 3 MG TABLET PO (19:52)
[2022-04-28] MEDS: Zolpidem Tartrate 5 MG TABLET 10 MG PO (19:52)
[2022-04-29] MEDS: hydrOXYzine HCL 25 MG TABLET PO ×2 (05:45→14:34)
[2022-04-29 08:13] VITALS: BP 109/60; PULSE 61; RESP 16; TEMP 36.3; O2SAT 97
[2022-04-29] MEDS: Nicotine 21 MG PATCH.TD24 TRANSDERMA (08:21)
[2022-04-29] MEDS: Multivitamin TABLET 1 TAB PO (08:22)
[2022-04-29] MEDS: Gabapentin 600 MG TABLET PO ×3 (08:22→20:43)
[2022-04-29] MEDS: Paliperidone ER 3 MG TAB.ER.24 PO (08:22)
[2022-04-29] MEDS: Escitalopram Oxalate 10 MG TABLET PO (08:22)
[2022-04-29] MEDS: Thiamine HCL 100 MG TABLET PO (08:22)
--- NOTE | 2022-04-29 14:06 | P.PNPSI_ITS ---
Subjective Subjective Date of Service: 04/29/22 Reason For Visit: Alcohol use disorder; Depression; SI Interim History: Met with Patient; discussed in teams Patient said that he is feeling better and that he slept better last night on clonidine. Said he did not need Seroquel. Thankful for help received. Says he plans to DC tomorrow Mental Status Exam Mental Status Exam Patient Appearance: Appropriate Patient Orientation: Person, Place, Time and Situation Level of Consciousness: Alert Patient Behavior: Appropriate, Talkative and Good Eye Contact Mood Description: Depressed (much less so) Affect Description: Calm and Anxious Patient Cognition Impaired: No Ability to Follow Directions: Good Speech Pattern: Clear and Spontaneous Speech Memory Description: Intact Hallucinations: None Delusions: Not Present Perceptual Disturbances: Depersonalization and Derealization Thought Process: Goal Oriented Thought Content: positive for Intact (No SI; no HI) Depressive Symptoms: Insomnia and Difficulty Sleeping Judgement and Insight: Fair Diagnostics Vital Signs (24Hr): Vital Signs - 24 hr 04/28/22 18:00 04/29/22 08:13 Temperature 97.8 F 97.4 F Pulse Rate 86 61 Respiratory Rate 16 16 Blood Pressure 118/78 109/60 Pulse Oximetry 96 97 Oxygen Delivery Method Room Air Room Air BMI result Body Mass Index 29.2 Labs 04/16/22 09:47 04/16/22 21:25 Imaging Radiology Impressions: ITS Impressions Chest X-Ray 04/16/22 11:14 IMPRESSION: No acute cardiopulmonary process. Head CT 04/16/22 17:31 IMPRESSION: 1. No acute intracranial pathology. 2. Scalp contusion. Medications Medications Current Medications Acetaminophen (Acetaminophen 325 Mg Tablet) 650 mg PO Q6H PRN PRN Reason: Headache/Pain Mild Scale (1-3) Al Hydroxide/Mg Hydroxide (Magnesium Hydrox/Alum Hydrox 30 Ml Oral.Susp) 30 ml PO Q6H PRN PRN Reason: Heartburn/Nausea Clonidine HCl (Clonidine Hcl 0.1 Mg Tablet) 0.1 mg PO BEDTIME JORGE; Protocol Last Admin: 04/28/22 19:52 Dose: 0.1 mg Escitalopram Oxalate (Escitalopram Oxalate 10 Mg Tablet) 10 mg PO DAILY [facility] Last Admin: 04/29/22 08:22 Dose: 10 mg Gabapentin (Gabapentin 600 Mg Tablet) 600 mg PO TID JORGE Last Admin: 04/29/22 08:22 Dose: 600 mg Hydroxyzine HCl (Hydroxyzine Hcl 25 Mg Tablet) 25 mg PO Q6H PRN PRN Reason: Anxiety Last Admin: 04/29/22 05:45 Dose: 25 mg Magnesium Hydroxide (Milk Of Magnesia 30 Ml Oral.Susp) 30 ml PO DAILY PRN PRN Reason: Constipation Melatonin (Melatonin 3 Mg Tablet) 3 mg PO BEDTIME PRN PRN Reason: Insomnia Last Admin: 04/28/22 19:52 Dose: 3 mg Multivitamins/Vitamin C (Multivitamin Tablet) 1 tab PO DAILY [facility] Last Admin: 04/29/22 08:22 Dose: 1 tab Nicotine (Nicotine 21 Mg Patch.Td24) 21 mg TRANSDERMA DAILY [facility] Last Admin: 04/29/22 08:21 Dose: 21 mg Nicotine Polacrilex (Nicotine Polacrilex Lozenge 4 Mg Lozenge) 4 mg BUCCAL Q2H PRN PRN Reason: Nicotine Cravings Last Admin: 04/28/22 13:51 Dose: 4 mg Paliperidone (Paliperidone Er 3 Mg Tab.Er.24) 3 mg PO DAILY [facility] Last Admin: 04/29/22 08:22 Dose: 3 mg Quetiapine Fumarate (Quetiapine Fumarate 50 Mg Tablet) 50 mg PO BEDTIME PRN PRN Reason: continued insomnia Thiamine HCl (Thiamine Hcl 100 Mg Tablet) 100 mg PO DAILY [facility] Last Admin: 04/29/22 08:22 Dose: 100 mg Zolpidem Tartrate (Zolpidem Tartrate 5 Mg Tablet) 10 mg PO BEDTIME PRN PRN Reason: Insomnia Last Admin: 04/28/22 19:52 Dose: 10 mg Allergies Allergies Allergy/AdvReac Type Severity Reaction Status Date / Time No Known Allergies Allergy Verified 05/11/20 11:39 [No Known Allergies*] Assessment & Plan Assessment & Plan (1) Ambien accidental overdose: Status: Acute Code(s): T42.6X1A - Poisoning by other antiepileptic and sedative-hypnotic drugs, accidental (unintentional), initial encounter (2) PTSD (post-traumatic stress disorder): Status: Acute Code(s): F43.10 - Post-traumatic stress disorder, unspecified (3) Alcohol use disorder, severe, dependence: Status: Acute Code(s): F10.20 - Alcohol dependence, uncomplicated (4) Mood disorder: Status: Acute Code(s): F39 - Unspecified mood [affective] disorder Plan 62 yo male, hx PTSD, alcohol use disorder. Sober for one year with brief relapse and OD of Ambien and another med in response to increase in activity at his [facility]. Pt has been discharged and is now homeless. Pt continues with SI/plan to hang himself. Hx of cirrhosis. Plan: Complete withdrawal, denies current sx. Collateral contact with GI to begin mood stabilizer, OP team. Referral to [facility] 04/19/22: Continue current regime and plan. 04/20/22: Continue current plan and regime Encouraged milieu 04/22/2022: No changes to current treatment plan 04/23/22: Improved, continue current plan. ?[facility], Lamictal with GI input. 04/25/22: Discontinue [facility] Invega 3 mg daily Discontinue Trazodone Remeron 7.5 mg HS 04/27/22: Discontinue Remeron Seroquel 50 mg HS 04/28 start clonidine 0.1 mg q.h.s. (vitals reviewed and BP WNL) Change Seroquel to p.r.n.; hoping to reduce use of antipsychotics 04/29 continue clonidine q.h.s., patient said helped with sleep; otherwise continue current treatment plan Patient educated on: diagnosis and medication risk/benefits Informed Consent: understands Reason for contiued inpatient stay Substantial Risk for: stable for discharge Time Spent With Patient Time: Total time managing care of this patient today ____ minutes.
[2022-04-29 18:00] VITALS: BP 112/58; PULSE 62; RESP 18; TEMP 35.8; O2SAT 98
[2022-04-29] MEDS: cloNIDine HCL 0.1 MG TABLET PO (20:43)
[2022-04-29] MEDS: Melatonin 3 MG TABLET PO (20:44)
[2022-04-29] MEDS: Zolpidem Tartrate 5 MG TABLET 10 MG PO (20:45)
[2022-04-30] MEDS: Nicotine Polacrilex Lozenge 4 MG LOZENGE BUCCAL (05:30)
[2022-04-30] MEDS: hydrOXYzine HCL 25 MG TABLET PO (05:30)
[2022-04-30] MEDS: Nicotine 21 MG PATCH.TD24 TRANSDERMA (08:15)
[2022-04-30] MEDS: Thiamine HCL 100 MG TABLET PO (08:15)
[2022-04-30] MEDS: Paliperidone ER 3 MG TAB.ER.24 PO (08:15)
[2022-04-30] MEDS: Escitalopram Oxalate 10 MG TABLET PO (08:15)
[2022-04-30] MEDS: Gabapentin 600 MG TABLET PO ×2 (08:15→12:49)
[2022-04-30] MEDS: Multivitamin TABLET 1 TAB PO (08:15)
[2022-04-30 08:16] VITALS: BP 116/73; PULSE 57; RESP 16; TEMP 36.4; O2SAT 97
--- NOTE | 2022-04-30 16:22 | PM.PSYDC ---
DS: Providers Provider Date of Service: 04/30/22 Date of admission: 04/17/22 14:39 Date of discharge: 04/30/22 Primary care physician: Samara Hunter MD Admitting clinician: Renu Rasmussen Attending physician on admission: Gaurav Ba Attending physician on discharge: Gaurav Ba Discharging clinician: Renu Rasmussen DS: Diagnosis Discharge Diagnosis (1) Ambien accidental overdose: Status: Acute (2) PTSD (post-traumatic stress disorder): Status: Acute (3) Alcohol use disorder, severe, dependence: Status: Acute (4) Mood disorder: Status: Acute DS: Medications Discharge Medications Home Medications: Previous Rx's Medication Instructions Recorded clonidine HCl 0.1 mg tablet 0.1 mg PO BEDTIME #30 tabs 04/30/22 escitalopram oxalate 10 mg tablet 10 mg PO DAILY #30 tabs 04/30/22 gabapentin 600 mg tablet 1 tab PO TID #90 tabs 04/30/22 multivitamin (Daily-Jerilyn tablet) 1 tab PO DAILY #30 tabs 04/30/22 nicotine (polacrilex) 4 mg buccal 4 mg buccal Q2H PRN Nicotine 04/30/22 lozenge Cravings #60 ea nicotine 21 mg/24 hr daily 21 mg transdermal DAILY #30 ea 04/30/22 transdermal patch paliperidone 3 mg tablet,extended 3 mg PO DAILY #30 tabs 04/30/22 release 24 hr (Invega) thiamine mononitrate (vit B1) 100 100 mg PO DAILY #30 tabs 04/30/22 mg tablet zolpidem 10 mg tablet 1 tab PO BEDTIME PRN Insomnia #7 04/30/22 tabs Mental Status Exam Mental Status Exam Patient Appearance: Appropriate Patient Orientation: Person, Place, Time and Situation Level of Consciousness: Alert Patient Behavior: Talkative and Good Eye Contact Mood Description: Depressed Affect Description: Flat Patient Cognition Impaired: No Ability to Follow Directions: Good Speech Pattern: Spontaneous Speech Memory Description: Intact Hallucinations: None Delusions: Not Present Perceptual Disturbances: Depersonalization and Derealization Thought Process: Distracted Thought Content: positive for Circumstantial and positive for Perseveration Depressive Symptoms: Insomnia, Difficulty Sleeping, Changes in Appetite, Thoughts of /Suicide (denies) and Loss of Energy Judgement: Good Data Imaging Diagnostic Imaging Impressions Chest X-Ray 04/16/22 11:14 IMPRESSION: No acute cardiopulmonary process. Head CT 04/16/22 17:31 IMPRESSION: 1. No acute intracranial pathology. 2. Scalp contusion. DS: Summary Hospital Course Hospital Course: 62 yo male, admitted to adult psychiatry for relapse and exacerbation of PTSD and major depression. Celexa was discontinued. Lexapro was initiated, along with clonidine and Invega. Gabapentin and Ambien were continued. Mr. Palomares was able to utilize the milieu and individual sessions to focus on a pattern of relapse when doing well and why this occurs often, he reports throughout his entire life. Aftercare was scheduled. He plans alf placement and has applied for treatment programs when an opening becomes available. Time spent discussing smoking cessation with patient: 3 to 10 minutes Status at Discharge Functional status at discharge: independent ambulation Overall status at discharge: patient is back to baseline Time Spent with Patient Time attestation: Total time managing care of this patient today 35 minutes. Time spent: Greater than 30 minutes Discharge Plan Discharge Anticipated Discharge Date/Time: 04/30/22 12:59 Patient Disposition: Half-Way Discharge Diagnosis: PTSD Alcohol Use Disorder Major Depression Referrals: Lv Embudo [Other] - 1 Week (Referral placed to [facility] Patient may follow-up on referral after discharge) Marta Page [Other] - 1 Week (Referral to Marta Page [facility] for substance use treatment. Patient may follow-up on referral after discharge ) Ha Ferrell [Other] - 1 Week (Referral for Half-Way Placement ) [facility]Other[facility] - 1 Week (Referral for Substance Use Treatment Patient will follow-up on referral after discharge ) [facility] [Other] - 1 Week (Half-Way Information) [facility] [Other] - 1 Week (Half-Way placement information ) Azul Means [Other] - 05/02/22 2:00 pm (Follow-up discharge appointment with therapist Appointment in person at [facility] in [place] ) [facility]: Fredy Ellis [Other] - 05/28/22 11:00 am (Follow-up discharge appointment with outpatient psychiatric provider Appointment is by tele-health ) [facility]: Fredy Southlake [Other] - 06/21/22 1:50 pm (Follow-up medication management appointment with psychiatric medication provider Appointment is by tele-health.) Samara Hunter MD [Primary Care Provider] - 05/04/22 10:15 am (in office) Discharge Medications: New multivitamin [Daily-Jerilyn] Tablet 1 tab PO DAILY Qty: 30 0RF clonidine HCl 0.1 mg Tablet 0.1 mg PO BEDTIME Qty: 30 0RF Protocol: Hold for SBP< HOLD for SBP < : 90 nicotine 21 mg/24 hr Patch 24 Hour 21 mg transdermal DAILY Qty: 30 0RF escitalopram oxalate 10 mg Tablet 10 mg PO DAILY Qty: 30 0RF nicotine (polacrilex) 4 mg Lozenge 4 mg buccal Q2H PRN (Reason: Nicotine Cravings) Qty: 60 0RF paliperidone [Invega] 3 mg Tablet Extended Release 24 Hr 3 mg PO DAILY Qty: 30 0RF thiamine mononitrate (vit B1) 100 mg Tablet 100 mg PO DAILY Qty: 30 0RF Continued gabapentin 600 mg tablet 1 tab PO TID Qty: 90 0RF zolpidem 10 mg tablet 1 tab PO BEDTIME PRN (Reason: Insomnia) Qty: 7 4RF Discontinued citalopram 20 mg tablet 1 tab PO DAILY Discharge Orders: Discharge Order (Routine); Ordered 04/30/22 Ordered By: Renu Rasmussen Diet: Advance to usual diet Activity on Discharge: As tolerated Stand Alone Forms: Patient Portal Discharge page, Community Support Care Plan Goals: Mood and Behavioral Stabilization Sobriety Health Concerns: Mood and Behavioral Stabilization Sobriety Plan of Treatment: Connect with out patient providers Take medications as directed Assessment: non suicidal, non homicidal, non-psychotic, non-manic Discharge Date/Time: 04/30/22 13:14
== END 2022-04-30 13:14 | disposition home or self-care (01) | DRG 753 ==
LOC: HO.ED 04-17 14:24 → HO.PM5 04-17 19:32
PROVIDERS: Physician Assistant; Admitting Provider Clinical Nurse Specialist Psychiatric/Mental Health, Adult; Emergency Provider Student in an Organized Health Care Education/Training Program; PCP Internal Medicine; Visit Provider Clinical Nurse Specialist Psychiatric/Mental Health, Adult
DX: F39 Unspecified mood [affective] disorder (principal); R45.851 Suicidal ideations; K70.30 Alcoholic cirrhosis of liver without ascites; F10.229 Alcohol dependence with intoxication, unspecified; F17.210 Nicotine dependence, cigarettes, uncomplicated; F43.10 Post-traumatic stress disorder, unspecified; Z59.02 Unsheltered homelessness; T42.6X1A Poisoning by other antiepileptic and sedative-hypnotic drugs, accidental (unintentional), initial encounter; Y90.8 Blood alcohol level of 240 mg/100 ml or more; Z71.6 Tobacco abuse counseling; Z20.822 Contact with and (suspected) exposure to COVID-19; Z79.899 Other long term (current) drug therapy
CPT/HCPCS: 36415; 70450; 71045; 80048; 80061; 80076; 80143; 80179; 80307; 82077; 82607; 82746; 83036; 83735; 84439; 84443; 85025; 85610; 87502; 87635; 93005; 94640; 96361; 96365; 96366; 99285; J3475; S9485

== ENCOUNTER 2022-08-03 20:15 | Emergency (ER) | payer OTHER, SELFPAY ==
--- NOTE | ~2022-08-03 | XR_ITS ---
EXAMINATION: XR ABDOMEN COMPLETE CLINICAL INDICATION: Abdominal pain. Constipation. COMPARISON: None available. TECHNIQUE: Upright and supine views of the abdomen. FINDINGS: No free air is identified. There is a large amount of stool seen throughout the colon with the largest burden being within the ascending and transverse colon. There are some loops of small bowel with air-fluid levels but which are not dilated. 2 metallic clips are seen overlying the left upper quadrant. Cholelithiasis is present. Psoas margins intact. XR/XR acute abdomen series IMPRESSION: Large amount of stool within the colon without significant dilated loops of bowel or free air/pneumatosis. Cholelithiasis.
[2022-08-03 20:19] VITALS: BP 128/84; BP 159/106; PULSE 79; PULSE 81; RESP 18; TEMP 36.1; O2SAT 95; O2SAT 99; BMI 21.7
--- NOTE | 2022-08-03 20:19 | ED.GENADULT ---
HPI - General Adult General Chief complaint: Abdominal Pain Stated complaint: Abd Pain Time Seen by Provider: 08/04/22 00:06 Source: patient Mode of arrival: ambulatory Limitations: no limitations History of Present Illness HPI narrative: Patient comes to the emergency room complaining of suprapubic pain and constipation for 1 week. Patient denies nausea vomiting diarrhea. Denies hematuria or dysuria, no flank pain Related Data Previous Rx's Medication Instructions Recorded clonidine HCl 0.1 mg tablet 0.1 mg PO BEDTIME #30 tabs 04/30/22 escitalopram oxalate 10 mg tablet 10 mg PO DAILY #30 tabs 04/30/22 gabapentin 600 mg tablet 1 tab PO TID #90 tabs 04/30/22 multivitamin (Daily-Jerilyn tablet) 1 tab PO DAILY #30 tabs 04/30/22 nicotine (polacrilex) 4 mg buccal 4 mg buccal Q2H PRN Nicotine 04/30/22 lozenge Cravings #60 ea nicotine 21 mg/24 hr daily 21 mg transdermal DAILY #30 ea 04/30/22 transdermal patch paliperidone 3 mg tablet,extended 3 mg PO DAILY #30 tabs 04/30/22 release 24 hr (Invega) thiamine mononitrate (vit B1) 100 100 mg PO DAILY #30 tabs 04/30/22 mg tablet zolpidem 10 mg tablet 1 tab PO BEDTIME PRN Insomnia #7 04/30/22 tabs Allergies Allergy/AdvReac Type Severity Reaction Status Date / Time No Known Allergies Allergy Verified 05/11/20 11:39 [No Known Allergies*] Review of Systems Review of Systems: Constitutional : No Weight loss, No Fever, No Chills, No Night Sweats, No Fatigue, No Malaise ENT/Mouth : No Hearing loss, No Ear Pain, No Nasal Congestion, No Sinus Pain, No Hoarseness, No sore throat, No Rhinorrhea, No Swallowing Difficulty Eyes: No Eye Pain, No Swelling, No Redness, No Foreign Body, No Discharge, No Vision Changes Cardiovascular : No Chest Pain, No SOB, No Dyspnea on Exertion, No Orthopnea, No Edema, No Palpitations Respiratory : No Cough, No Sputum, No Wheezing, No Smoke Exposure, No Dyspnea Gastrointestinal : No Nausea, No Vomiting, No Diarrhea, complaining of Constipation, No abdominal Pain, No Hematochezia, No Melena Genitourinary : Complaining of suprapubic pain, No Dysuria, No Urinary Frequency, No Hematuria, No Urinary Incontinence, No Urgency, No Flank Pain, No Urinary Flow Changes, No Hesitancy Musculoskeletal : No joint pain, No Myalgias, No Joint Swelling Skin : No Skin Lesions, No rash Neuro : No Weakness, No Numbness, No Paresthesias, No Loss of Consciousness, No Dizziness, No Headache Psych : No Anxiety/Panic, No Depression, No SI/HI/AH/VH, No Social Issues, Heme/Lymph: No Bruising, No Bleeding,No Lymphadenopathy Endocrine : No Polyuria, No Polydipsia, No Temperature Intolerance [facility] Past Medical History Medical History Alcohol abuse Alcohol use disorder, severe, dependence Cirrhosis of liver Esophageal varices Mood disorder PTSD (post-traumatic stress disorder) Social History Social History Household Members: None Housing: Homeless Do you presently have visiting nurse or other home services: No Alcohol intake: current Alcohol intake frequency: former alcohol drinker Alcohol type: hard liquor Patient Tobacco Use Status: Current everyday Tobacco user Tobacco use type: Cigarette Cigarette Packs Per Day: 1 Cigarettes Per Day: 20.0 e-Cigarette/Vaping Use: Never Used Second Hand Smoke Exposure: Yes Substance Use Type: Crack/Cocaine Advance Directives: No Advance Directives Information Provided: No service: No Sexual orientation: Straight/Heterosexual Physical Exam ED Vital Signs: Vital Signs - 24 hr 08/03/22 20:19 08/03/22 22:59 08/04/22 02:18 Temperature 96.9 F 97.6 F 98.5 F Pulse Rate 79 84 88 Respiratory Rate 18 16 18 Blood Pressure 159/106 H 148/79 H 147/90 H Pulse Oximetry 99 95 97 Oxygen Delivery Method Room Air Room Air Room Air BMI result Body Mass Index 21.7 Const Other: Appearance: Alert. Oriented X3. No acute distress. Patient seems intoxicated Eyes: Pupils equal, round and reactive to light. ENT: Pharynx normal. Neck: Normal inspection. Neck supple. No lymph nodes noted. No crepitus CVS: Normal heart rate and rhythm. Pulses normal. Normal S1 and S2 Respiratory: No respiratory distress. Breath sounds normal. No Wheezing. No rales Abdomen: Soft and nontender. No rigidity. No distention. Skin: Skin warm and dry. Normal skin color. Normal skin turgor. Extremities: No lower extremity edema. No Lacerations. No Rash Neuro: Oriented X 3. No motor deficit. No sensory deficit. Moving all extremities. No slurred speech. CN 2 through 12 grossly intact Psych: calm, cooperative, normal affect Course Course Course Narrative: RME performed by Brianna Sanders PA-C. Patient is a 62 year old assigned male at presenting to the emergency department with low abdominal pain. Patient states that he is constipated and has been taking a lot of things to help with that but nothing seems to. Labs ordered. Patient placed back in the waiting room pending room availability and results. Medications Administered Discontinued Medications Generic Name Dose Route Start Last Admin Trade Name Freq PRN Reason Stop Dose Admin Sodium Chloride 1,000 mls @ 999 mls/hr 08/04/22 01:01 08/04/22 01:51 Ns IVCONT 08/04/22 02:01 999 mls/hr .Q1H1M ONE Administration Medical Decision Making Medical Decision Making [facility] Narrative: -white blood cell count within normal limits, chemistry unremarkable. Patient seems intoxicated, does have history of alcoholism -patient has not been able to provide a urine sample. Patient may have a UTI versus pyelonephritis versus cystitis -bladder scan shows nearly 500 mL of urine in the bladder. He was only able to urinate 150. Patient getting IV fluids, he would try to urinate when he has more fluid in his bladder. At this time, patient declines straight cath/Dodd -KUB shows constipation -at this time, 01:35, patient seems still intoxicated, is still arousable but falls back asleep. Plan: Metabolize to freedom, obtain bladder scan, KUB. Patient seems comfortable sleeping, vitals stable -sign-out given to Dr. Cano Patient is now awake alert oriented. No acute distress. Bladder scan postvoid is 230 cc. Patient's urine appears normal. CBC is baseline. Electrolyte is normal. UA negative for infection. Will discharge patient home. Patient's KUB consistent with constipation. Differential Diagnosis Urinary retention, alcohol intoxication abdominal pain Lab Data [facility] Lab Attestation statement: I reviewed the patient's lab results. 08/03/22 20:59 08/03/22 20:59 Labs: Lab Results 08/03/22 08/03/22 08/04/22 Range/Units 20:59 20:59 02:20 WBC 6.3 (4.8-10.8) X10*3/uL RBC 4.77 (4.60-5.80) X10*6/uL Hgb 14.5 (14.0-18.0) g/dl Hct 42.6 (42.0-52.0) % MCV 89.3 (80.0-98.0) fL MCH 30.4 (27.0-33.0) pg MCHC 34.0 (31.0-36.0) g/dl RDW 13.7 (11.0-16.0) % Plt Count 130 L (160-400) X10*3/uL MPV 10.4 (9.4-12.4) fL Immature Gran % (Auto) 0.3 (0.0-0.4) % Neut % (Auto) 79.4 H (45-73) % Lymph % (Auto) 8.6 L (20-40) % Tift % (Auto) 8.4 (2-11) % Eos % (Auto) 3.0 (0-4) % Baso % (Auto) 0.3 (0-2) % Lymph # (Auto) 0.5 L (1.2-4.9) X10*3/uL Tift # (Auto) 0.5 (0.1-1.2) X10*3/uL Eos # (Auto) 0.2 (0.0-0.4) X10*3/uL Baso # (Auto) 0.0 (0.0-0.2) X10*3/uL Abs Immat Gran (auto) 0.02 (0.00-0.03) X10*3/uL Absolute Neuts (auto) 5.0 (2.0-8.3) x10*3/uL Absolute Nucleated RBC 0.000 (0.0-0.012) X10*3/uL Nucleated RBC % (auto) 0.0 (0.0-0.2) /100WBC Sodium 141 (135-145) mmol/L Potassium 3.9 (3.3-5.1) mmol/L Chloride 104 (96-108) mmol/L Carbon Dioxide 30 H (22-29) mmol/L Anion Gap 11 L (12-20) BUN 9 (9-16) mg/dL Creatinine 0.85 (0.5-1.4) mg/dL Estim Creat Clear Calc 92.4 Estimated GFR > 60 Random Glucose 126 H (60-115) mg/dL Calcium 9.8 D (8.4-10.2) mg/dL Magnesium 2.1 (1.6-2.6) mg/dL Total Bilirubin 0.8 (0.0-1.0) mg/dL AST 49 H (5-37) U/L ALT 39 (0-40) U/L Alkaline Phosphatase 61 (39-117) U/L Total Protein 7.3 (6.5-8.0) g/dL Albumin 4.3 (3.5-5.0) g/dL Urine Color Yellow Urine Appearance Turbid Urine pH >= 9.0 (5.0-9.0) Ur Specific [place] 1.020 (1.005-1.025) Urine Protein Trace (Neg-Trace) mg/dL Urine Glucose (UA) Negative (Negative) mg/dL Urine Ketones Negative (Negative) mg/dL Urine Blood Negative (Negative) Urine Nitrite Negative (Negative) Ur Leukocyte Esterase Negative (Negative) Independent Interpretation I performed an independent interpretation of an: Plain X-Ray Interpretation: No overt obstruction on KUB Radiology Impression Discussion of test interpretation with radiology: I have reviewed the radiologist's reading. Radiologist Impression: FINDINGS: No free air is identified. There is a large amount of stool seen throughout the colon with the largest burden being within the ascending and transverse colon. There are some loops of small bowel with air-fluid levels but which are not dilated. 2 metallic clips are seen overlying the left upper quadrant. Cholelithiasis is present. Psoas margins intact. XR/XR acute abdomen series IMPRESSION: Large amount of stool within the colon without significant dilated loops of bowel or free air/pneumatosis. ? Cholelithiasis. Discharge Plan Discharge Clinical Impression: Suprapubic pain Patient Disposition: Home, Self-Care Instructions: Pelvic Pain in Men (ED) Prescriptions: No Action multivitamin [Daily-Jerilyn] Tablet 1 tab PO DAILY Qty: 30 0RF clonidine HCl 0.1 mg Tablet 0.1 mg PO BEDTIME Qty: 30 0RF Protocol: Hold for SBP< HOLD for SBP < : 90 nicotine 21 mg/24 hr Patch 24 Hour 21 mg transdermal DAILY Qty: 30 0RF escitalopram oxalate 10 mg Tablet 10 mg PO DAILY Qty: 30 0RF nicotine (polacrilex) 4 mg Lozenge 4 mg buccal Q2H PRN (Reason: Nicotine Cravings) Qty: 60 0RF paliperidone [Invega] 3 mg Tablet Extended Release 24 Hr 3 mg PO DAILY Qty: 30 0RF thiamine mononitrate (vit B1) 100 mg Tablet 100 mg PO DAILY Qty: 30 0RF gabapentin 600 mg tablet 1 tab PO TID Qty: 90 0RF zolpidem 10 mg tablet 1 tab PO BEDTIME PRN (Reason: Insomnia) Qty: 7 4RF Referrals: Natalio Delgado MD [Physician] - 08/06/22
--- NOTE | 2022-08-03 20:53 | MHC.EDTECH ---
This tech attempted to get a urine sample in triage, Patient states I'm unable to give one at this time.
[2022-08-03 21:03] LABS: MANUAL DIFF FLAG NO
--- OUTSIDE RECORDS SUMMARY | 2022-08-03 21:05 | XMS_ITS | Continuity of Care Document ---
Author Name Unknown Organization [facility] ter Address [address] [place] [id number]- Care Team Providers Care [employer] Technician Name Role Phone Dev Ghosh DO Primary Care Physician Encounter [facility] [place] Date(s): 05/21/22 - 05/23/[address] [id number]- Encounter Diagnosis Depression(Final) - 05/21/22 Alcohol use(Final) - 05/21/22 Suicidal ideation(Final) - 05/21/22 Discharge Disposition: Transfer to Psych Facility Attending Physician: Sapphire Martinez MD Admitting Physician: Sapphire Martinez MD Referring Physician: Not on Staff, Referring MD Allergies, Adverse Reactions, Alerts Substance Reaction Severity Status traZODone Dry mouth Dizziness Active Immunizations Given and Recorded Vaccine Date Status Refusal Reason SARS-CoV-2 (COVID-19) mRNA-1273 vaccine 08/10/20 R ecorded SARS-CoV-2 (COVID-19) mRNA-1273 vaccine 07/15/20 R ecorded Medications citalopram 20 mg oral tablet 1 tablet = 20 mg, By Mouth, Daily, # 30 tablet, 0 Refills, Maintenance, 05/21/22 23:20:00 EST, Tablet, Partial fill upon patient request if the prescription is for a schedule II opioid drug. Start Date: 05/21/22 Status: Ordered cloNIDine 0.1 mg oral tablet 0.1 mg, 1, tablet, By Mouth, Daily at bedtime, # 30 tablet, Refills 0, Maintenance, 05/21/22 23:19:00 EST, Partial fill upon patient request if the prescription is for a schedule II opioid drug. Start Date: 05/21/22 Status: Ordered escitalopram 10 mg oral tablet 1 tablet = 10 mg, By Mouth, Daily, # 90 tablet, 0 Refills, Maintenance, 05/21/22 23:19:00 EST, Tablet, Partial fill upon patient request if the prescription is for a schedule II opioid drug. Start Date: 05/21/22 Status: Ordered gabapentin 300 mg oral capsule 600 mg, Capsule, By Mouth, 05/22/22 21:00:00 EST Start Date: 05/22/22 Stop Date: 05/22/22 Status: Completed gabapentin 600 mg oral tablet 1 tablet = 600 mg, By Mouth, 3 times a day, # 270 tablet, 0 Refills, Maintenance, 05/21/22 23:20:00EST, Tablet, Partial fill upon patient request if the prescription is for a schedule II opioid drug. Start Date: 05/21/22 Status: Ordered gabapentin 600 mg oral tablet 1 tablet = 600 mg, By Mouth, 3 times a day, 0 Refills, Maintenance, 05/01/22 11:26:00 EST, Partial fill upon patient request if the prescription is for a schedule II opioid drug. Start Date: 05/01/22 Status: Ordered prazosin 1 mg oral capsule 1 mg, Capsule, By Mouth, Hold for: SBP < 90, DBP < 60, 05/22/22 21:00:00 EST Start Date: 05/22/22 Stop Date: 05/22/22 Status: Completed Problem List Condition Confirmation Course Effective Dates Status H ealth Status Informant Cervical radiculopathy Confirmed Active Vital Signs Most recent to oldest [Reference Range]: 1 2 3 Oxygen Saturation [94-100 %] 96 % (05/23/22 9:00 AM) 95 % (05/23/22 5:42 AM) 95 % (05/22/22 8:10 PM) Pulse Rate [55-90 bpm] 88 bpm (05/23/22 9:00 AM) 56 bpm (05/23/22 5:42 AM) 50 bpm *L* (05/22/22 8:10 PM) Blood Pressure [90-138/55-84 mm Hg] 134/78mm Hg (05/23/22 9:00 AM) 117/60mm Hg (05/23/22 5:42 AM) 141/60mm Hg *H* (05/22/22 8:49 PM) Respiratory Rate [16-30 br/min] 18 br/min (05/23/22 9:00 AM) 16 br/min (05/23/22 5:42 AM) 17 br/min (05/22/22 8:49 PM) Temperature [96.8-100.4 DegF] 98.6 DegF (05/23/22 9:00 AM) 98.2 DegF (05/23/22 5:42 AM) 97.7 DegF (05/22/22 8:10 PM) Liters per Minute 0 L/min (05/21/22 5:34 PM) Mode of Delivery (Oxygen) Room air (05/23/22 9:00 AM) Room air (05/23/22 5:42 AM) Room air (05/22/22 8:10 PM) Blood pressure sites Arm, right (05/23/22 9:00 AM) Arm, left (05/23/22 5:42 AM) Arm, right (05/22/22 8:49 PM) Temperature Route Oral (05/23/22 9:00 AM) Oral (05/23/22 5:42 AM) Oral (05/22/22 8:10 PM) Social History Social History Type Response Smoking Status 10 or more cigarette s (1/2 pack or more)/day in last 30 days entered on: 04/30/22 Sex Patient Care team information Care Team Personnel Name: Dev Ghosh DO Position: [facility] Physician (General Medicine) Member Role: PCP Address: Address: [address] [place] [address]- Name: *[facility], ED Attending Position: [facility] ED Attendings Patient Name: Lawrence Prasad RN Position: [facility] ED RN W/OE and Tasks Member Role: Patient Care Provider Name: Sapphire Martinez MD Position: [facility] Resident Member Role: Admitting Physician Address: Address: [address] [place] [id number]- Care Team Related Persons Name: TANVIR RAMIRES Address: home [address] [place] [address]
[2022-08-03 21:18] LABS: Alanine Aminotransferase 39 U/L (0-40); Albumin Level 4.3 g/dL (3.5-5.0); Alkaline Phosphatase 61 U/L (39-117); Anion Gap 11 (12-20); Aspartate Amino Transferase 49 U/L (5-37); Bilirubin Total 0.8 mg/dL (0.0-1.0); Blood Urea Nitrogen 9 mg/dL (9-16); Calcium 9.8 mg/dL (8.4-10.2); Carbon Dioxide 30 mmol/L (22-29); Chloride 104 mmol/L (96-108); Creatinine Clr Calc Pharmacy 92.4; Estimated Glomerular Filt Rate > 60; Glucose Random 126 mg/dL (60-115); Magnesium 2.1 mg/dL (1.6-2.6); Potassium 3.9 mmol/L (3.3-5.1); Sodium 141 mmol/L (135-145); Total Protein 7.3 g/dL (6.5-8.0)
[2022-08-03 21:20] LABS: Basophils Percent Auto 0.3 % (0-2); Eosinophils Absolute Auto 0.2 X10*3/uL (0.0-0.4); Hematocrit 42.6 % (42.0-52.0); Hemoglobin 14.5 g/dl (14.0-18.0); Imm Gran Abs Auto 0.02 X10*3/uL (0.00-0.03); Imm Gran Pct Auto 0.3 % (0.0-0.4); Lymphocytes Absolute Auto 0.5 X10*3/uL (1.2-4.9); Lymphocytes Percent Auto 8.6 % (20-40); Mean Corpuscular Hemoglobin 30.4 pg (27.0-33.0); Mean Corpuscular Volume 89.3 fL (80.0-98.0); Mean Platelet Volume 10.4 fL (9.4-12.4); Monocytes Absolute Auto 0.5 X10*3/uL (0.1-1.2); Monocytes Percent Auto 8.4 % (2-11); Neutrophils Percent Auto 79.4 % (45-73); Platelet Count 130 X10*3/uL (160-400); Red Blood Count 4.77 X10*6/uL (4.60-5.80); Red Cell Distribution Width 13.7 % (11.0-16.0); White Blood Count 6.3 X10*3/uL (4.8-10.8)
[2022-08-03 22:59] VITALS: BP 148/79; PULSE 84; RESP 16; TEMP 36.4; O2SAT 95
--- NOTE | 2022-08-03 23:49 | PC.NURSE ---
Pt sleeping quietly with eyes closed. Respirations even and unlabored.
[2022-08-04] MEDS: 0.9 % Sodium Chloride 1,000 ML 999 ML IVCONT (01:51)
--- NOTE | 2022-08-04 01:53 | PC.NURSE ---
Pt bladder scan showing approximately 471 ml in bladder. Only able to urinate approximately 150 ml at this time. Not agreeable to catheter at this time.
[2022-08-04 02:18] VITALS: BP 147/90; PULSE 88; RESP 18; TEMP 36.9; O2SAT 97
[2022-08-04 02:27] LABS: Appearance Urine Turbid; Color Urine Yellow; Glucose Urine UA Negative (Negative); Leukocyte Esterase Urine Negative (Negative); Nitrite Urine Negative (Negative); PH >= 9.0 (5.0-9.0); Urine Blood Negative (Negative); Urine Ketones Negative (Negative); Urine Protein Trace mg/dL (Neg-Trace)
--- NOTE | 2022-08-04 04:48 | PC.NURSE ---
PVR 239 ml. Provider made aware.
[2022-08-04 06:21] VITALS: BP 157/93; PULSE 89; RESP 16; TEMP 36.7; O2SAT 96
== END 2022-08-04 06:33 | disposition home or self-care (01) ==
PROVIDERS: Physician Assistant Medical; Emergency Provider Emergency Medicine
DX: R10.2 Pelvic and perineal pain (principal); K59.00 Constipation, unspecified; F17.210 Nicotine dependence, cigarettes, uncomplicated; Z71.6 Tobacco abuse counseling; Z79.899 Other long term (current) drug therapy
CPT/HCPCS: 36415; 51798; 74022; 80053; 81003; 83735; 85025; 99283; 99284

== ENCOUNTER 2022-08-12 10:08 | Emergency (ER) | payer OTHER, SELFPAY ==
--- NOTE | ~2022-08-12 | CT_ITS ---
EXAM: CT HEAD WITHOUT CONTRAST CT CERVICAL SPINE INDICATION: Reason for Exam head trauma TECHNIQUE: A noncontrast CT scan was performed from the skull base to the vertex. A noncontrast CT scan of the cervical spine was performed from the base of the skull through T1 at 2.5 mm and 0.625 mm collimation. Coronal and sagittal reformats were obtained at the acquisition workstation. This CT examination was performed using dose optimization techniques as appropriate, variously including the following: * Automated exposure control * Adjustment of mA and/or kV according to patient size (this includes techniques or standardized protocols for targeted exams where dose is matched to indication/reason for exam; i.e. extremities or head) * Use of iterative reconstruction technique Dose length product is 1255 mGy-cm. COMPARISON: CT 04/16/2022 FINDINGS: Head: There is no evidence of acute intracranial hemorrhage or territorial infarction. No abnormal mass effect or midline shift is seen. Stephens to white matter differentiation is well preserved. No extra-axial fluid collections are identified. The ventricles are normal in size. No abnormal attenuation in the brain parenchyma. No acute calvarial fracture.. Minimal opacification of bilateral mastoid air cells, stable from previous. Paranasal sinuses are well-aerated. Soft tissue swelling and scalp hematoma in the frontal region. Cervical Spine: The atlantooccipital and atlantoaxial articulations are maintained. Straightening of the normal cervical lordosis. Otherwise, there is anatomic alignment of the vertebral bodies and posterior elements. No evidence of acute fracture. Cervical spondylosis. More prominent changes of moderate disc degeneration at C5-C6, C6-C7, C7-T1. Multilevel facet degeneration. Central canal grossly maintained. No prevertebral soft tissue swelling. No suspicious thyroid findings. Mild patchy groundglass opacities in the lung apices, nonspecific. CT/CT cervical spine wo IV con IMPRESSION: No CT evidence of acute intracranial hemorrhage or edematous territorial infarction. Scalp contusion. No CT evidence of acute cervical spine fracture. Cervical spondylosis.
--- NOTE | ~2022-08-12 | XR_ITS ---
EXAMINATION: XR CHEST CLINICAL INFORMATION: [place] COMPARISON: None available. TECHNIQUE: Frontal view of the chest was obtained. FINDINGS: No significant abnormality is noted involving the heart, lungs, mediastinum, bony thorax or soft tissues. XR/XR chest 1V IMPRESSION: Unremarkable chest examination.
[2022-08-12 10:15] VITALS: BP 148/72; PULSE 98; O2SAT 94; BMI 30.9
[2022-08-12 10:23] VITALS: BP 110/74; PULSE 82; RESP 18; TEMP 36.4; O2SAT 90
--- NOTE | 2022-08-12 10:35 | ECG_ITS ---
Test Reason : OVERDOSE Blood Pressure : / mmHG Vent. Rate : 072 BPM Atrial Rate : 072 BPM P-R Int : 144 ms QRS Dur : 104 ms QT Int : 436 ms P-R-T Axes : 067 077 075 degrees QTc Int : 477 ms Normal sinus rhythm Septal infarct , age undetermined Abnormal ECG When compared with ECG of 17-APR-2022 00:30, No significant change was found Referred By: Blank Valente Electronically Signed By:HOLDEN HARDY MD
[2022-08-12] MEDS: Naloxone HCl Nasal 4 MG SPRAY NOSTRILALT (10:36)
[2022-08-12 10:39] LABS: Glucose, Whole Blood 158 mg/dL (60-115)
--- NOTE | 2022-08-12 10:53 | PC.NURSE ---
given 4mg nasal narcan per verbal order nabila katz. pt awake to tactile stimuli only. continues to appear lethargic, nodding off. placed on 1l o2 nc for comfort, spo2 90% ra.
[2022-08-12 11:14] LABS: MANUAL DIFF FLAG NO
[2022-08-12 11:15] LABS: Basophils Percent Auto 0.7 % (0-2); Eosinophils Absolute Auto 0.2 X10*3/uL (0.0-0.4); Eosinophils Percent Auto 3.8 % (0-4); Hematocrit 46.1 % (42.0-52.0); Hemoglobin 15.6 g/dl (14.0-18.0); Imm Gran Abs Auto 0.13 X10*3/uL (0.00-0.03); Imm Gran Pct Auto 2.2 % (0.0-0.4); Lymphocytes Absolute Auto 1.7 X10*3/uL (1.2-4.9); Lymphocytes Percent Auto 28.8 % (20-40); Mean Corpuscular HGB Conc 33.8 g/dl (31.0-36.0); Mean Corpuscular Hemoglobin 30.1 pg (27.0-33.0); Mean Corpuscular Volume 88.8 fL (80.0-98.0); Mean Platelet Volume 9.1 fL (9.4-12.4); Monocytes Absolute Auto 0.5 X10*3/uL (0.1-1.2); Monocytes Percent Auto 7.9 % (2-11); Neutrophils Absolute Auto 3.4 x10*3/uL (2.0-8.3); Neutrophils Percent Auto 56.6 % (45-73); Platelet Count 172 X10*3/uL (160-400); Red Blood Count 5.19 X10*6/uL (4.60-5.80); Red Cell Distribution Width 13.8 % (11.0-16.0)
[2022-08-12 11:20] LABS: VBG Base Excess -2.6 mmol/L; VBG HCO3 23 mmol/L (22-26); VBG pCO2 44 mmHg; VBG pH 7.33 (7.32-7.43); VBG pO2 94 mmHg
[2022-08-12 11:20] LABS: Venous Blood Gas Refer to POC result
[2022-08-12 11:21] LABS: Glucose, Whole Blood 119 mg/dL (60-115)
[2022-08-12 11:22] LABS: INTERNATIONAL NORM RATIO 1.1 (0.9-1.1); Prothrombin Time 12.2 SEC (10.0-13.1)
[2022-08-12 11:25] LABS: Partial Thromboplastin Time 31.6 SEC (26.0-36.4)
[2022-08-12 11:27] LABS: Ammonia 54 umol/L (13-55)
--- NOTE | 2022-08-12 11:29 | ED_ITS ---
HPI - Overdose General Chief Complaint: Overdose Stated Complaint: Overdose per EMS Time Seen by Provider: 08/12/22 10:18 Source: patient, EMS and old records reviewed Mode of arrival: ambulatory Limitations: no limitations History of Present Illness HPI Narrative: This is a 62-year-old male, with a past medical history of PTSD, polysubstance abuse, and alcohol use disorder who presents to the emergency department via EMS for presumed opiate overdose. Patient was found by EMS on the ground and administered a total of 16 mg of Narcan. Upon arrival to the emergency department, patient is lethargic but arousable. Oriented x3. No current complaints. MD complaint: accidental overdose Intent: unknown How Overdose Was Discovered: other (EMS ) Context: Intentional Overdose: drug/ETOH problems Context: Accidental Overdose: uncertain what happened Treatments Prior to Arrival: narcan Related Data Previous Rx's Medication Instructions Recorded clonidine HCl 0.1 mg tablet 0.1 mg PO BEDTIME #30 tabs 04/30/22 escitalopram oxalate 10 mg tablet 10 mg PO DAILY #30 tabs 04/30/22 gabapentin 600 mg tablet 1 tab PO TID #90 tabs 04/30/22 multivitamin (Daily-Jerilyn tablet) 1 tab PO DAILY #30 tabs 04/30/22 nicotine (polacrilex) 4 mg buccal 4 mg buccal Q2H PRN Nicotine 04/30/22 lozenge Cravings #60 ea nicotine 21 mg/24 hr daily 21 mg transdermal DAILY #30 ea 04/30/22 transdermal patch paliperidone 3 mg tablet,extended 3 mg PO DAILY #30 tabs 04/30/22 release 24 hr (Invega) thiamine mononitrate (vit B1) 100 100 mg PO DAILY #30 tabs 04/30/22 mg tablet zolpidem 10 mg tablet 1 tab PO BEDTIME PRN Insomnia #7 04/30/22 tabs polyethylene glycol 3350 17 17 g PO DAILY #119 grams 08/04/22 gram/dose oral powder (Miralax) Allergies Allergy/AdvReac Type Severity Reaction Status Date / Time No Known Allergies Allergy Verified 05/11/20 11:39 [No Known Allergies*] Review of Systems Review of Systems: Constitutional: No Weight loss, No Fever, No Chills ENT/Mouth: No Ear Pain, No Nasal Congestion, No Sinus Pain, No Hoarseness, No sore throat, No Rhinorrhea, No Swallowing Difficulty Cardiovascular: No Chest Pain, No SOB Respiratory: No Cough, No Sputum, No Wheezing Gastrointestinal: No Nausea, No Vomiting, No Diarrhea, No Constipation, No Abdominal pain Genitourinary: No Dysuria, No Urinary Frequency, No Hematuria, No Urinary Incontinence/retention, No Urgency, No Flank Pain Musculoskeletal: No joint pain, No Myalgias, No Joint Swelling Skin: No Skin Lesions, No rash Neuro: No Weakness, No Numbness, No Paresthesias Yes all other systems are reviewed and are negative Constitutional: Constitutional: Reports as per [facility] Past Medical History Attestation statement: The following information was validated with the patient. Medical History Alcohol abuse Alcohol use disorder, severe, dependence Cirrhosis of liver Esophageal varices Mood disorder PTSD (post-traumatic stress disorder) Social History Social History Household Members: None Housing: Homeless Do you presently have visiting nurse or other home services: No Alcohol intake: never Patient Tobacco Use Status: Current everyday Tobacco user Tobacco use type: Cigarette Cigarette Packs Per Day: 1 Cigarettes Per Day: 20.0 Smoked in Last 30 Days: Yes e-Cigarette/Vaping Use: Never Used Second Hand Smoke Exposure: Yes Use of substances other than those prescribed or required for medical reasons: Yes Substance Use Type: Heroin Advance Directives: No Advance Directives Information Provided: No service: No Sexual orientation: Straight/Heterosexual Physical Exam Vital Signs: Vital Signs: Last Vital Signs Temp 97.5 F 08/12/22 18:11 Pulse 82 08/12/22 18:11 Resp 12 08/12/22 18:11 BP 134/72 08/12/22 18:11 Pulse Ox 93 08/12/22 18:11 O2 Del Method Room Air 08/12/22 18:11 BMI result Body Mass Index 30.9 Const: Other: In cervical collar General: intoxicated appearing and poor hygiene Nutritional Appearance: overweight Orientation/consciousness: patient oriented x3 Limitations: other limitations (Intoxication) HEENT: Head: Yes normal to inspection, Yes normocephalic, Yes atraumatic, No Gamble's sign, No palpable skull fracture and No raccoon eyes Ears: hearing grossly normal bilaterally, TM's normal bilaterally and other (No hemotympanum) General nose exam: Normal external nose present Face and sinus: Yes normal facial exam Mouth: Normal oral and palatal mucosa present, oropharynx normal and moist mucous membranes Throat: Yes posterior oropharynx normal Eyes: Other: Pinpoint pupils noted bilaterally, reactive General: appearance normal, both eyes and all related structures Eyelids: Yes eyelids normal Conjunctivae: conjunctivae normal Sclerae: sclerae normal Pupils: Equal, round and reactive pupils present EOM: EOMs intact bilaterally Neck: Other: No tenderness to palpation over the cervical midline spine. Neck: Yes normal visual inspection, Yes full ROM and Yes no lymphadenopathy Lymphatic: no lymphadenopathy noted Chest: Chest palpation & inspection: normal inspection of the chest and normal palpation of entire chest wall Resp: Effort & Inspection: normal respiratory effort and able to speak in complete sentences Auscultation: clear to auscultation bilaterally, no crackles, no rales, no rhonchi and no wheezes Cardio: Rate: regular rate Rhythm: regular rhythm Heart sounds: S1 normal heart sound present and S2 normal heart sound present GI: Other: Normal active bowel sounds, abdomen is soft, nontender, nondistended. Inspection: Yes normal to inspection Skin: General skin exam: no rashes or lesions noted Trauma: no lacerations or abrasions Wounds: no wounds Neuro: General: patient oriented x3 and moves all extremities Cranial nerves: Yes Equal, round and reactive pupils present Extrem: General: Yes normal to inspection Right upper extremity: normal to inspection Left upper extremity: normal to inspection Right lower extremity: normal to inspection Left lower extremity: normal to inspection Course Course Course Narrative: 7:00 p.m.. Patient evaluated, he is awake, and oriented. Patient is now medically cleared to speak with the care team. 8:19 p.m.. Patient seen by the chief engineer drilling and recovery. He is now requesting discharge and he will be discharged with take home Narcan Reevaluation(s) Reevaluation #1: CT head revealing no acute process, no acute spine fracture, there is a scalp contusion noted. Cervical collar removed. Patient resting comfortably, saturating 96% on 1 L nasal cannula. Chest x-ray ordered. Will continue to monitor Time: 11:55 Reevaluation #2: Chest x-ray performed, which is unremarkable. Patient is sleeping, attempted to get more of a past medical history from patient however patient would like to sleep. Vital signs stable. Will continue to monitor Time: 13:00 Reevaluation #3: Patient re-evaluated, patient has been stable. Resting comfortably and emergency department bed. Workup unremarkable. Discussed with patient what happened. Patient reports that he is currently homeless and did drink alcohol and use fentanyl. When asked more details about what happened he reports ?I do not want to think about it?. I told patient that he had overdosed and required multiple doses of Narcan. He reported ?I am sorry?. He states that this was not intentional. He is not interested in detox at this time but is willing to talk to the recovery team for further resources. Care team evaluation order placed. Time: 15:49 Additional Reevaluation(s): Sign out given to Herve Cabral pending recovery care team evaluation Medications Administered Discontinued Medications Generic Name Dose Route Start Last Admin Trade Name Freq PRN Reason Stop Dose Admin Naloxone HCl 4 mg 08/12/22 10:33 08/12/22 10:36 Naloxone Hcl Nasal 4 Mg [place] NOSTRILALT 08/12/22 10:34 4 mg ONCE ONE Administration Medical Decision Making Medical Decision Making [facility] Narrative: 62-year-old male presenting to the emergency department for evaluation of overdose. Patient was found on the ground, with abrasion to his head likely fall and head trauma. Per EMS patient was given 60 mg of intranasal Narcan. Upon arrival patient placed in cervical collar, had pinpoint pupils, but reactive. Patient very drowsy arousable with sternal rub and redirection. On arrival patient's oxygen saturation 90% on room air, blood pressure 110/74, pulse 82bpm. Plan: Patient placed on supplemental oxygen, 1 L nasal cannula, administered Narcan 4 mg intranasally with good affect. Point of care glucose 119. CT head and neck ordered STAT. Differential Diagnosis Differential Diagnoses: The differential diagnosis associated with the presentation includes ICH, subdural hematoma, opioid overdose, ETOH abuse Admission/Observation Consideration of admission/observation: Escalation of care including admission/observation considered Lab Data [facility] Lab Attestation statement: I reviewed the patient's lab results. 08/12/22 11:08 08/12/22 11:08 Labs: Lab Results 08/12/22 08/12/22 08/12/22 Range/Units 10:36 11:08 11:08 WBC 6.0 (4.8-10.8) X10*3/uL RBC 5.19 (4.60-5.80) X10*6/uL Hgb 15.6 (14.0-18.0) g/dl Hct 46.1 (42.0-52.0) % MCV 88.8 (80.0-98.0) fL MCH 30.1 (27.0-33.0) pg MCHC 33.8 (31.0-36.0) g/dl RDW 13.8 (11.0-16.0) % Plt Count 172 D (160-400) X10*3/uL MPV 9.1 L (9.4-12.4) fL Immature Gran % (Auto) 2.2 H (0.0-0.4) % Neut % (Auto) 56.6 (45-73) % Lymph % (Auto) 28.8 (20-40) % [place] % (Auto) 7.9 (2-11) % Eos % (Auto) 3.8 (0-4) % Baso % (Auto) 0.7 (0-2) % Lymph # (Auto) 1.7 (1.2-4.9) X10*3/uL [place] # (Auto) 0.5 (0.1-1.2) X10*3/uL Eos # (Auto) 0.2 (0.0-0.4) X10*3/uL Baso # (Auto) 0.0 (0.0-0.2) X10*3/uL Abs Immat Gran (auto) 0.13 H (0.00-0.03) X10*3/uL Absolute Neuts (auto) 3.4 (2.0-8.3) x10*3/uL Absolute Nucleated RBC 0.000 (0.0-0.012) X10*3/uL Nucleated RBC % (auto) 0.0 (0.0-0.2) /100WBC PT (10.0-13.1) SEC INR (0.9-1.1) APTT (26.0-36.4) SEC VBG pH (7.32-7.43) VBG pCO2 mmHg VBG pO2 mmHg VBG HCO3 (22-26) mmol/L VBG O2 Saturation % VBG Base Excess mmol/L Sodium 144 (135-145) mmol/L Potassium 3.5 (3.3-5.1) mmol/L Chloride 110 H (96-108) mmol/L Carbon Dioxide 22 (22-29) mmol/L Anion Gap 16 (12-20) BUN 8 L (9-16) mg/dL Creatinine 0.87 (0.5-1.4) mg/dL Estim Creat Clear Calc 100.0 Estimated GFR > 60 POC Glucose 158 H (60-115) mg/dL Random Glucose 139 H (60-115) mg/dL Calcium 8.9 D (8.4-10.2) mg/dL Magnesium 1.8 (1.6-2.6) mg/dL Total Bilirubin 0.6 (0.0-1.0) mg/dL Direct Bilirubin 0.2 (0.0-0.5) mg/dL AST 49 H (5-37) U/L ALT 36 (0-40) U/L Alkaline Phosphatase 58 (39-117) U/L Ammonia (13-55) umol/L Troponin I High Sens (<3.5-35.0) ng/L Total Protein 7.5 (6.5-8.0) g/dL Albumin 4.4 (3.5-5.0) g/dL Lipase 36 (8-78) U/L Urine Opiates Screen (Not Detect) Urine Fentanyl Screen (Not Detect) Acetaminophen (<30) mcg/mL Ur Barbiturates Screen (Not Detect) Ur Phencyclidine Scrn (Not Detect) Ur Amphetamines Screen (Not Detect) U Benzodiazepines Scrn (Not Detect) Urine Cocaine Screen (Not Detect) U Marijuana (THC) Screen (Not Detect) Ethyl Alcohol mg/dL 08/12/22 08/12/22 08/12/22 Range/Units 11:08 11:08 11:08 WBC (4.8-10.8) X10*3/uL RBC (4.60-5.80) X10*6/uL Hgb (14.0-18.0) g/dl Hct (42.0-52.0) % MCV (80.0-98.0) fL MCH (27.0-33.0) pg MCHC (31.0-36.0) g/dl RDW (11.0-16.0) % Plt Count (160-400) X10*3/uL MPV (9.4-12.4) fL Immature Gran % (Auto) (0.0-0.4) % Neut % (Auto) (45-73) % Lymph % (Auto) (20-40) % [place] % (Auto) (2-11) % Eos % (Auto) (0-4) % Baso % (Auto) (0-2) % Lymph # (Auto) (1.2-4.9) X10*3/uL [place] # (Auto) (0.1-1.2) X10*3/uL Eos # (Auto) (0.0-0.4) X10*3/uL Baso # (Auto) (0.0-0.2) X10*3/uL Abs Immat Gran (auto) (0.00-0.03) X10*3/uL Absolute Neuts (auto) (2.0-8.3) x10*3/uL Absolute Nucleated RBC (0.0-0.012) X10*3/uL Nucleated RBC % (auto) (0.0-0.2) /100WBC PT 12.2 (10.0-13.1) SEC INR 1.1 (0.9-1.1) APTT 31.6 (26.0-36.4) SEC VBG pH (7.32-7.43) VBG pCO2 mmHg VBG pO2 mmHg VBG HCO3 (22-26) mmol/L VBG O2 Saturation % VBG Base Excess mmol/L Sodium (135-145) mmol/L Potassium (3.3-5.1) mmol/L Chloride (96-108) mmol/L Carbon Dioxide (22-29) mmol/L Anion Gap (12-20) BUN (9-16) mg/dL Creatinine (0.5-1.4) mg/dL Estim Creat Clear Calc Estimated GFR POC Glucose (60-115) mg/dL Random Glucose (60-115) mg/dL Calcium (8.4-10.2) mg/dL Magnesium (1.6-2.6) mg/dL Total Bilirubin (0.0-1.0) mg/dL Direct Bilirubin (0.0-0.5) mg/dL AST (5-37) U/L ALT (0-40) U/L Alkaline Phosphatase (39-117) U/L Ammonia (13-55) umol/L Troponin I High Sens < 2.7 (<3.5-35.0) ng/L Total Protein (6.5-8.0) g/dL Albumin (3.5-5.0) g/dL Lipase (8-78) U/L Urine Opiates Screen (Not Detect) Urine Fentanyl Screen (Not Detect) Acetaminophen < 17 (<30) mcg/mL Ur Barbiturates Screen (Not Detect) Ur Phencyclidine Scrn (Not Detect) Ur Amphetamines Screen (Not Detect) U Benzodiazepines Scrn (Not Detect) Urine Cocaine Screen (Not Detect) U Marijuana (THC) Screen (Not Detect) Ethyl Alcohol 220 mg/dL 08/12/22 08/12/22 08/12/22 Range/Units 11:08 11:12 11:14 WBC (4.8-10.8) X10*3/uL RBC (4.60-5.80) X10*6/uL Hgb (14.0-18.0) g/dl Hct (42.0-52.0) % MCV (80.0-98.0) fL MCH (27.0-33.0) pg MCHC (31.0-36.0) g/dl RDW (11.0-16.0) % Plt Count (160-400) X10*3/uL MPV (9.4-12.4) fL Immature Gran % (Auto) (0.0-0.4) % Neut % (Auto) (45-73) % Lymph % (Auto) (20-40) % [place] % (Auto) (2-11) % Eos % (Auto) (0-4) % Baso % (Auto) (0-2) % Lymph # (Auto) (1.2-4.9) X10*3/uL [place] # (Auto) (0.1-1.2) X10*3/uL Eos # (Auto) (0.0-0.4) X10*3/uL Baso # (Auto) (0.0-0.2) X10*3/uL Abs Immat Gran (auto) (0.00-0.03) X10*3/uL Absolute Neuts (auto) (2.0-8.3) x10*3/uL Absolute Nucleated RBC (0.0-0.012) X10*3/uL Nucleated RBC % (auto) (0.0-0.2) /100WBC PT (10.0-13.1) SEC INR (0.9-1.1) APTT (26.0-36.4) SEC VBG pH 7.33 (7.32-7.43) VBG pCO2 44 mmHg VBG pO2 94 mmHg VBG HCO3 23 (22-26) mmol/L VBG O2 Saturation 97.0 % VBG Base Excess -2.6 mmol/L Sodium (135-145) mmol/L Potassium (3.3-5.1) mmol/L Chloride (96-108) mmol/L Carbon Dioxide (22-29) mmol/L Anion Gap (12-20) BUN (9-16) mg/dL Creatinine (0.5-1.4) mg/dL Estim Creat Clear Calc Estimated GFR POC Glucose 119 H (60-115) mg/dL Random Glucose (60-115) mg/dL Calcium (8.4-10.2) mg/dL Magnesium (1.6-2.6) mg/dL Total Bilirubin (0.0-1.0) mg/dL Direct Bilirubin (0.0-0.5) mg/dL AST (5-37) U/L ALT (0-40) U/L Alkaline Phosphatase (39-117) U/L Ammonia 54 (13-55) umol/L Troponin I High Sens (<3.5-35.0) ng/L Total Protein (6.5-8.0) g/dL Albumin (3.5-5.0) g/dL Lipase (8-78) U/L Urine Opiates Screen (Not Detect) Urine Fentanyl Screen (Not Detect) Acetaminophen (<30) mcg/mL Ur Barbiturates Screen (Not Detect) Ur Phencyclidine Scrn (Not Detect) Ur Amphetamines Screen (Not Detect) U Benzodiazepines Scrn (Not Detect) Urine Cocaine Screen (Not Detect) U Marijuana (THC) Screen (Not Detect) Ethyl Alcohol mg/dL 08/12/22 Range/Units 17:23 WBC (4.8-10.8) X10*3/uL RBC (4.60-5.80) X10*6/uL Hgb (14.0-18.0) g/dl Hct (42.0-52.0) % MCV (80.0-98.0) fL MCH (27.0-33.0) pg MCHC (31.0-36.0) g/dl RDW (11.0-16.0) % Plt Count (160-400) X10*3/uL MPV (9.4-12.4) fL Immature Gran % (Auto) (0.0-0.4) % Neut % (Auto) (45-73) % Lymph % (Auto) (20-40) % [place] % (Auto) (2-11) % Eos % (Auto) (0-4) % Baso % (Auto) (0-2) % Lymph # (Auto) (1.2-4.9) X10*3/uL [place] # (Auto) (0.1-1.2) X10*3/uL Eos # (Auto) (0.0-0.4) X10*3/uL Baso # (Auto) (0.0-0.2) X10*3/uL Abs Immat Gran (auto) (0.00-0.03) X10*3/uL Absolute Neuts (auto) (2.0-8.3) x10*3/uL Absolute Nucleated RBC (0.0-0.012) X10*3/uL Nucleated RBC % (auto) (0.0-0.2) /100WBC PT (10.0-13.1) SEC INR (0.9-1.1) APTT (26.0-36.4) SEC VBG pH (7.32-7.43) VBG pCO2 mmHg VBG pO2 mmHg VBG HCO3 (22-26) mmol/L VBG O2 Saturation % VBG Base Excess mmol/L Sodium (135-145) mmol/L Potassium (3.3-5.1) mmol/L Chloride (96-108) mmol/L Carbon Dioxide (22-29) mmol/L Anion Gap (12-20) BUN (9-16) mg/dL Creatinine (0.5-1.4) mg/dL Estim Creat Clear Calc Estimated GFR POC Glucose (60-115) mg/dL Random Glucose (60-115) mg/dL Calcium (8.4-10.2) mg/dL Magnesium (1.6-2.6) mg/dL Total Bilirubin (0.0-1.0) mg/dL Direct Bilirubin (0.0-0.5) mg/dL AST (5-37) U/L ALT (0-40) U/L Alkaline Phosphatase (39-117) U/L Ammonia (13-55) umol/L Troponin I High Sens (<3.5-35.0) ng/L Total Protein (6.5-8.0) g/dL Albumin (3.5-5.0) g/dL Lipase (8-78) U/L Urine Opiates Screen POSITIVE H (Not Detect) Urine Fentanyl Screen POSITIVE H (Not Detect) Acetaminophen (<30) mcg/mL Ur Barbiturates Screen Not Detected (Not Detect) Ur Phencyclidine Scrn Not Detected (Not Detect) Ur Amphetamines Screen Not Detected (Not Detect) U Benzodiazepines Scrn Not Detected (Not Detect) Urine Cocaine Screen Not Detected (Not Detect) U Marijuana (THC) Screen Not Detected (Not Detect) Ethyl Alcohol mg/dL Radiology Impression Discussion of test interpretation with radiology: I have reviewed the radiologist's reading. Radiologist Impression: EXAM: CT HEAD WITHOUT CONTRAST CT CERVICAL SPINE INDICATION: Reason for Exam head trauma TECHNIQUE: A noncontrast CT scan was performed from the skull base to the vertex. A noncontrast CT scan of the cervical spine was performed from the base of the skull through T1 at 2.5 mm and 0.625 mm collimation. Coronal and sagittal reformats were obtained at the acquisition workstation. This CT examination was performed using dose optimization techniques as appropriate, variously including the following: *? Automated exposure control *? Adjustment of mA and/or kV according to patient size (this includes techniques or standardized protocols for targeted exams where dose is matched to indication/reason for exam; i.e. extremities or head) *? Use of iterative reconstruction technique Dose length product is 1255 mGy-cm. COMPARISON: CT 04/16/2022 FINDINGS: Head: There is no evidence of acute intracranial hemorrhage or territorial infarction. No abnormal mass effect or midline shift is seen. Stephens to white matter differentiation is well preserved. No extra-axial fluid collections are identified. The ventricles are normal in size. No abnormal attenuation in the brain parenchyma. No acute calvarial fracture.. Minimal opacification of bilateral mastoid air cells, stable from previous. Paranasal sinuses are well-aerated. Soft tissue swelling and scalp hematoma in the frontal region. ? ?Cervical Spine: The atlantooccipital and atlantoaxial articulations are maintained. Straightening of the normal cervical lordosis. Otherwise, there is anatomic alignment of the vertebral bodies and posterior elements. No evidence of acute fracture. Cervical spondylosis. More prominent changes of moderate disc degeneration at C5-C6, C6-C7, C7-T1. Multilevel facet degeneration. Central canal grossly maintained. No prevertebral soft tissue swelling. No suspicious thyroid findings. Mild patchy groundglass opacities in the lung apices, nonspecific. CT/CT head/brain wo IV con IMPRESSION: No CT evidence of acute intracranial hemorrhage or edematous territorial infarction. Scalp contusion. No CT evidence of acute cervical spine fracture. Cervical spondylosis. ? ? Dictated By: Bud Bassett MD EXAMINATION: XR CHEST CLINICAL INFORMATION: [place] COMPARISON: None available. TECHNIQUE: Frontal view of the chest was obtained. FINDINGS: No significant abnormality is noted involving the heart, lungs, mediastinum, bony thorax or soft tissues. XR/XR chest 1V IMPRESSION: Unremarkable chest examination. ? Dictated By: Mejia Adams MD Signed By: <Electronically signed by Mejia Adams MD in [place]> 08/12/22 1254 Independent Historian Clinical information obtained from an independent historian. History obtained from or confirmed by: EMS External Record Review External record reviewed: Inpatient record, Office record, Outpatient record, Prior outpatient labs, Prior outpatient radiology, Primary care record and Outside ED record Discharge Plan Discharge Clinical Impression: Drug overdose Patient Disposition: Home, Self-Care Instructions: Adult Overdose (ED) Additional Instructions: And had overdosed on opiates today requiring multiple doses of Narcan. Stop using all drugs and alcohol. You can seek help through the recovery team, you met with them today. If any new or worsening symptoms occur including but not limited to chest pain, shortness of breath, palpitations, please return for re-evaluation. Prescriptions: No Action multivitamin [Daily-Jerilyn] Tablet 1 tab PO DAILY Qty: 30 0RF clonidine HCl 0.1 mg Tablet 0.1 mg PO BEDTIME Qty: 30 0RF Protocol: Hold for SBP< HOLD for SBP < : 90 nicotine 21 mg/24 hr Patch 24 Hour 21 mg transdermal DAILY Qty: 30 0RF escitalopram oxalate 10 mg Tablet 10 mg PO DAILY Qty: 30 0RF nicotine (polacrilex) 4 mg Lozenge 4 mg buccal Q2H PRN (Reason: Nicotine Cravings) Qty: 60 0RF paliperidone [Invega] 3 mg Tablet Extended Release 24 Hr 3 mg PO DAILY Qty: 30 0RF thiamine mononitrate (vit B1) 100 mg Tablet 100 mg PO DAILY Qty: 30 0RF gabapentin 600 mg tablet 1 tab PO TID Qty: 90 0RF zolpidem 10 mg tablet 1 tab PO BEDTIME PRN (Reason: Insomnia) Qty: 7 4RF polyethylene glycol 3350 [Miralax] 17 gram/dose powder 17 g PO DAILY Qty: 119 0RF
[2022-08-12 11:36] LABS: Alanine Aminotransferase 36 U/L (0-40); Albumin Level 4.4 g/dL (3.5-5.0); Alkaline Phosphatase 58 U/L (39-117); Anion Gap 16 (12-20); Aspartate Amino Transferase 49 U/L (5-37); Bilirubin Direct 0.2 mg/dL (0.0-0.5); Bilirubin Total 0.6 mg/dL (0.0-1.0); Blood Urea Nitrogen 8 mg/dL (9-16); Calcium 8.9 mg/dL (8.4-10.2); Carbon Dioxide 22 mmol/L (22-29); Chloride 110 mmol/L (96-108); Estimated Glomerular Filt Rate > 60; Glucose Random 139 mg/dL (60-115); Lipase 36 U/L (8-78); Magnesium 1.8 mg/dL (1.6-2.6); Potassium 3.5 mmol/L (3.3-5.1); Sodium 144 mmol/L (135-145); Total Protein 7.5 g/dL (6.5-8.0)
[2022-08-12 11:49] LABS: Acetaminophen LAB < 17 mcg/mL (<30); Ethanol 220 mg/dL; Troponin-I High Sensitivity < 2.7 ng/L (<3.5-35.0)
[2022-08-12 12:35] VITALS: BP 104/42; PULSE 63; RESP 12; TEMP 36.2; O2SAT 94
[2022-08-12 14:26] VITALS: BP 142/70; PULSE 70; RESP 13; TEMP 36.6; O2SAT 94
--- NOTE | 2022-08-12 15:31 | MHC.RECOVRN ---
SUDE to be completed when pt awake and able to engage in conversation.
--- NOTE | 2022-08-12 17:29 | MHC.CARE ---
CARE Team attempted to meet with the pt but due to the level of discomfort the pt was feeling, a conversation could not be had. CARE Team will attempt to speak with the pt later tonight, if he chooses to.
[2022-08-12 17:38] LABS: Amphetamine Screen Urine Not Detected (Not Detect); Barbiturates, Urine Not Detected (Not Detect); Benzodiazepines Screen Urine Not Detected (Not Detect); Cannabinoid Screen Urine Not Detected (Not Detect); Cocaine Screen Urine Not Detected (Not Detect); Fentanyl, urine POSITIVE (Not Detect); Opiate Screen Urine POSITIVE (Not Detect); Phencyclidine Screen Urine Not Detected (Not Detect)
[2022-08-12 18:11] VITALS: BP 134/72; PULSE 82; RESP 12; TEMP 36.4; O2SAT 93
--- NOTE | 2022-08-12 19:10 | MHC.RECOVSUP ---
? Reason for consult: Recovery Support o Current location: ED 17? o Identified substance use concern: CARMELITA - Overdose ? ?Intervention: o Harm reduction discussion ? Additional information:?Patient consult with the medical team before entry. Patient is not interested in detox or outside support at this time.
--- NOTE | 2022-08-12 19:14 | PC.NURSE ---
assumed care of pt at 1900, pt awake and sitting at edge of bed, asked to speak to recovery/CARE team.
--- NOTE | 2022-08-12 20:19 | PC.NURSE ---
pt requesting discharge at this time, provider notified.
[2022-08-12] MEDS: Naloxone HCl Nasal TAKE HOME 4 MG SPRAY NOSTRILALT (20:24)
--- NOTE | 2022-08-12 20:26 | PC.NURSE ---
pt ambulated with a steady gait to decon, pt given take home narcan with discharge instructions.
== END 2022-08-12 20:30 | disposition home or self-care (01) ==
PROVIDERS: Physician Assistant Medical; Emergency Provider Internal Medicine; PCP Internal Medicine
DX: T40.2X1A Poisoning by other opioids, accidental (unintentional), initial encounter (principal); Y92.9 Unspecified place or not applicable; R51.9 Headache, unspecified; M54.2 Cervicalgia; R07.89 Other chest pain; F17.210 Nicotine dependence, cigarettes, uncomplicated; Z71.6 Tobacco abuse counseling; Z79.899 Other long term (current) drug therapy
CPT/HCPCS: 36415; 70450; 71045; 72125; 80048; 80076; 80143; 80307; 82140; 82803; 82947; 83690; 83735; 84484; 85025; 85610; 85730; 93005; 99285

== ENCOUNTER 2022-10-13 21:27 | Emergency (ER) | payer OTHER, SELFPAY ==
[2022-10-13 21:31] VITALS: BP 120/81; PULSE 82; RESP 18; TEMP 36.3; O2SAT 97; BMI 28.9
[2022-10-13 22:28] LABS: MANUAL DIFF FLAG NO
[2022-10-13 22:29] LABS: Basophils Percent Auto 0.5 % (0-2); Eosinophils Absolute Auto 0.2 X10*3/uL (0.0-0.4); Eosinophils Percent Auto 3.3 % (0-4); Hematocrit 46.6 % (42.0-52.0); Imm Gran Abs Auto 0.02 X10*3/uL (0.00-0.03); Imm Gran Pct Auto 0.4 % (0.0-0.4); Lymphocytes Absolute Auto 1.7 X10*3/uL (1.2-4.9); Lymphocytes Percent Auto 31.3 % (20-40); Mean Corpuscular HGB Conc 34.3 g/dl (31.0-36.0); Mean Corpuscular Hemoglobin 30.7 pg (27.0-33.0); Mean Corpuscular Volume 89.4 fL (80.0-98.0); Monocytes Absolute Auto 0.6 X10*3/uL (0.1-1.2); Monocytes Percent Auto 10.7 % (2-11); Neutrophils Percent Auto 53.8 % (45-73); Platelet Count 157 X10*3/uL (160-400); Red Blood Count 5.21 X10*6/uL (4.60-5.80); Red Cell Distribution Width 13.3 % (11.0-16.0); White Blood Count 5.5 X10*3/uL (4.8-10.8)
[2022-10-13 22:31] LABS: Appearance Urine Clear; Color Urine Yellow; Glucose Urine UA Negative (Negative); Leukocyte Esterase Urine Negative (Negative); Nitrite Urine Negative (Negative); PH 5.5 (5.0-9.0); UMIC TRIGGER UA YES; Urine Blood Negative (Negative); Urine Ketones Trace mg/dL (Negative); Urine Protein 30 (1+) mg/dL (Neg-Trace)
[2022-10-13 22:43] LABS: Amphetamine Screen Urine Not Detected (Not Detect); Barbiturates, Urine Not Detected (Not Detect); Benzodiazepines Screen Urine Not Detected (Not Detect); Cannabinoid Screen Urine Not Detected (Not Detect); Cocaine Screen Urine Not Detected (Not Detect); Fentanyl, urine Not Detected (Not Detect); Opiate Screen Urine Not Detected (Not Detect); Phencyclidine Screen Urine Not Detected (Not Detect)
[2022-10-13 22:45] LABS: Magnesium 1.9 mg/dL (1.6-2.6)
[2022-10-13 22:46] LABS: Alanine Aminotransferase 31 U/L (0-40); Albumin Level 4.5 g/dL (3.5-5.0); Alkaline Phosphatase 61 U/L (39-117); Anion Gap 18 (12-20); Aspartate Amino Transferase 43 U/L (5-37); Bilirubin Total 0.5 mg/dL (0.0-1.0); Blood Urea Nitrogen 11 mg/dL (9-16); Calcium 9.6 mg/dL (8.4-10.2); Carbon Dioxide 20 mmol/L (22-29); Chloride 108 mmol/L (96-108); Creatinine Clr Calc Pharmacy 95.1; Estimated Glomerular Filt Rate > 60; Ethanol 204 mg/dL; Glucose Random 101 mg/dL (60-115); Potassium 3.6 mmol/L (3.3-5.1); Sodium 142 mmol/L (135-145); Total Protein 7.9 g/dL (6.5-8.0)
[2022-10-13 22:57] LABS: COVID-19 Test Negative (Negative); IDNOW Serial# 6674DD1D
[2022-10-13 23:03] LABS: Bacteria Urine None Seen (None Seen); Hyaline Casts Urine 0-2 /LPF (0-2); RBC Urine 0-2 /HPF (0-2); Squamous Epithelial Cell Urine 0-2 /HPF (0-2); WBC Urine 0-5 /HPF (0-5)
--- NOTE | 2022-10-13 23:29 | ED_ITS ---
HPI - Psych General Chief Complaint: Psychiatric Symptoms Stated Complaint: Mental Health/Plan to hurt self Time Seen by Provider: 10/13/22 22:24 Source: patient Mode of arrival: EMS Limitations: no limitations History of Present Illness HPI Narrative: 62-year-old male with history of alcohol abuse presents with alcohol intoxication from a sober house. Patient has depression, anxiety and some passive suicidal ideation. Offers no plan. He has not been on his medications for some time. There has been no acute events to cause him to be anxious or depressed. He denies drug abuse. Does smoke tobacco. Patient describes the symptoms as severe in nature. There is no clear relieving or exacerbating features. He offers no acute medical complaints. Related Data Home Medications Medication Instructions Recorded Confirmed albuterol sulfate 90 mcg/actuation 2 puff inhalation Q4-6H PRN 10/13/22 10/13/22 aerosol inhaler (Ventolin HFA) Shortness Of Breath gabapentin 400 mg capsule 400 mg PO TID 10/13/22 10/13/22 zolpidem 10 mg tablet 10 mg PO BEDTIME PRN Insomnia 10/13/22 10/13/22 Previous Rx's Medication Instructions Recorded nicotine (polacrilex) 4 mg buccal 4 mg buccal Q2H PRN Nicotine 04/30/22 lozenge Cravings #60 ea nicotine 21 mg/24 hr daily 21 mg transdermal DAILY #30 ea 04/30/22 transdermal patch Allergies Allergy/AdvReac Type Severity Reaction Status Date / Time No Known Allergies Allergy Verified 10/13/22 21:31 [No Known Allergies*] Review of Systems Review of Systems: CONSTITUTIONAL: Denies weight loss, fever and chills. HEENT: Denies changes in vision and hearing. RESPIRATORY: Denies SOB and cough. CV: Denies palpitations no CP. GI: Denies abdominal pain, nausea, vomiting and diarrhea. : Denies dysuria and urinary frequency. MSK: Denies myalgia and joint pain. SKIN: Denies rash and pruritus. NEUROLOGICAL: Denies headache and syncope. PSYCHIATRIC: + anxiety and depression. All other ROS are negative unless in HPI PMFSH Past Medical History Medical History Alcohol abuse Alcohol use disorder, severe, dependence Cirrhosis of liver Esophageal varices Mood disorder PTSD (post-traumatic stress disorder) Social History Social History Household Members: None Housing: Homeless Do you presently have visiting nurse or other home services: No Alcohol intake: never Patient Tobacco Use Status: Current everyday Tobacco user Tobacco use type: Cigarette Cigarette Packs Per Day: 1 Cigarettes Per Day: 20.0 e-Cigarette/Vaping Use: Never Used Second Hand Smoke Exposure: Yes Substance Use Type: Heroin Advance Directives: No Advance Directives Information Provided: No service: No Sexual orientation: Straight/Heterosexual Physical Exam Vital Signs: Vital Signs: Last Vital Signs Temp 97.4 F 10/13/22 21:31 Pulse 82 10/13/22 21:31 Resp 18 10/13/22 21:31 BP 120/81 10/13/22 21:31 Pulse Ox 97 10/13/22 21:31 O2 Del Method Room Air 10/13/22 21:31 BMI result Body Mass Index 28.9 GEN: Well developed, no acute distress, alert, oriented HEENT: Normocephalic, atraumatic, normal external ears, nose appears normal, no oropharyngeal edema or exudates Eyes: Normal to appearance Neck: Supple, no lymphadenopathy Respiratory: Talks in complete sentences, no respiratory distress, clear to auscultation bilaterally Cardiovascular: Regular rate and rhythm, no murmurs rubs or gallops Abdomen: Soft, nontender, nondistended, no guarding, no rebound Back: No CVA tenderness Extremities: No clubbing cyanosis or edema Neurologic: No focal neurologic deficits, cranial nerves 2-12 intact, strength is 5/5 bilaterally Skin: No rash Course Reevaluation(s) Reevaluation #1: Patient is medically cleared for Behavioral evaluation. Patient will be placed in physician observation at this time pending an appropriate disposition by her behavioral health team. Time: 23:32 Reevaluation #2: Patient will be signed out to the oncoming provider at 7:00 a.m.. Medical Decision Making Medical Decision Making MDM Narrative: 60-year-old male with history of alcohol abuse and depression, anxiety presents for psychiatric evaluation. Patient on for suicidal ideation but no plan. He has been drinking alcohol. Has history of alcohol abuse. Examination is benign. At this point, we will medically clear patient for psychiatric evaluation in the morning. Differential diagnosis includes anxiety, depression, PTSD, cyst substance into abuse, alcohol-induced mood disorder, alcoholism. Differential Diagnosis Differential Diagnoses: The differential diagnosis associated with the presentation includes (See above) Admission/Observation Consideration of admission/observation: Escalation of care including admission/observation considered Lab Data MDM Lab Attestation statement: I reviewed the patient's lab results. 10/13/22 22:19 10/13/22 22:19 Labs: Lab Results 10/13/22 10/13/22 10/13/22 Range/Units 22:17 22:18 22:18 WBC (4.8-10.8) X10*3/uL RBC (4.60-5.80) X10*6/uL Hgb (14.0-18.0) g/dl Hct (42.0-52.0) % MCV (80.0-98.0) fL MCH (27.0-33.0) pg MCHC (31.0-36.0) g/dl RDW (11.0-16.0) % Plt Count (160-400) X10*3/uL MPV (9.4-12.4) fL Immature Gran % (Auto) (0.0-0.4) % Neut % (Auto) (45-73) % Lymph % (Auto) (20-40) % [place] % (Auto) (2-11) % Eos % (Auto) (0-4) % Baso % (Auto) (0-2) % Lymph # (Auto) (1.2-4.9) X10*3/uL [place] # (Auto) (0.1-1.2) X10*3/uL Eos # (Auto) (0.0-0.4) X10*3/uL Baso # (Auto) (0.0-0.2) X10*3/uL Abs Immat Gran (auto) (0.00-0.03) X10*3/uL Absolute Neuts (auto) (2.0-8.3) x10*3/uL Absolute Nucleated RBC (0.0-0.012) X10*3/uL Nucleated RBC % (auto) (0.0-0.2) /100WBC Sodium (135-145) mmol/L Potassium (3.3-5.1) mmol/L Chloride (96-108) mmol/L Carbon Dioxide (22-29) mmol/L Anion Gap (12-20) BUN (9-16) mg/dL Creatinine (0.5-1.4) mg/dL Estim Creat Clear Calc Estimated GFR Random Glucose (60-115) mg/dL Calcium (8.4-10.2) mg/dL Magnesium (1.6-2.6) mg/dL Total Bilirubin (0.0-1.0) mg/dL AST (5-37) U/L ALT (0-40) U/L Alkaline Phosphatase (39-117) U/L Total Protein (6.5-8.0) g/dL Albumin (3.5-5.0) g/dL TSH (0.32-4.0) uIU/mL Urine Color Yellow Urine Appearance Clear Urine pH 5.5 (5.0-9.0) Ur Specific [place] 1.020 (1.005-1.025) Urine Protein 30 (1+) H (Neg-Trace) mg/dL Urine Glucose (UA) Negative (Negative) mg/dL Urine Ketones Trace (Negative) mg/dL Urine Blood Negative (Negative) Urine Nitrite Negative (Negative) Ur Leukocyte Esterase Negative (Negative) Urine RBC 0-2 (0-2) /HPF Urine WBC 0-5 (0-5) /HPF Ur Squamous Epith Cells 0-2 (0-2) /HPF Urine Bacteria None Seen (None Seen) Hyaline Casts 0-2 (0-2) /LPF Urine Opiates Screen Not Detected (Not Detect) Urine Fentanyl Screen Not Detected (Not Detect) Ur Barbiturates Screen Not Detected (Not Detect) Ur Phencyclidine Scrn Not Detected (Not Detect) Ur Amphetamines Screen Not Detected (Not Detect) U Benzodiazepines Scrn Not Detected (Not Detect) Urine Cocaine Screen Not Detected (Not Detect) U Marijuana (THC) Screen Not Detected (Not Detect) Ethyl Alcohol mg/dL COVID-19 ([facility]) Negative (Negative) COVID-19 Clin Com See Note 10/13/22 10/13/22 10/13/22 Range/Units 22:19 22:19 22:19 WBC 5.5 (4.8-10.8) X10*3/uL RBC 5.21 (4.60-5.80) X10*6/uL Hgb 16.0 (14.0-18.0) g/dl Hct 46.6 (42.0-52.0) % MCV 89.4 (80.0-98.0) fL MCH 30.7 (27.0-33.0) pg MCHC 34.3 (31.0-36.0) g/dl RDW 13.3 (11.0-16.0) % Plt Count 157 L (160-400) X10*3/uL MPV 10.0 (9.4-12.4) fL Immature Gran % (Auto) 0.4 (0.0-0.4) % Neut % (Auto) 53.8 (45-73) % Lymph % (Auto) 31.3 (20-40) % [place] % (Auto) 10.7 (2-11) % Eos % (Auto) 3.3 (0-4) % Baso % (Auto) 0.5 (0-2) % Lymph # (Auto) 1.7 (1.2-4.9) X10*3/uL [place] # (Auto) 0.6 (0.1-1.2) X10*3/uL Eos # (Auto) 0.2 (0.0-0.4) X10*3/uL Baso # (Auto) 0.0 (0.0-0.2) X10*3/uL Abs Immat Gran (auto) 0.02 (0.00-0.03) X10*3/uL Absolute Neuts (auto) 3.0 (2.0-8.3) x10*3/uL Absolute Nucleated RBC 0.000 (0.0-0.012) X10*3/uL Nucleated RBC % (auto) 0.0 (0.0-0.2) /100WBC Sodium 142 (135-145) mmol/L Potassium 3.6 (3.3-5.1) mmol/L Chloride 108 (96-108) mmol/L Carbon Dioxide 20 L (22-29) mmol/L Anion Gap 18 (12-20) BUN 11 (9-16) mg/dL Creatinine 0.86 (0.5-1.4) mg/dL Estim Creat Clear Calc 95.1 Estimated GFR > 60 Random Glucose 101 (60-115) mg/dL Calcium 9.6 D (8.4-10.2) mg/dL Magnesium 1.9 (1.6-2.6) mg/dL Total Bilirubin 0.5 (0.0-1.0) mg/dL AST 43 H (5-37) U/L ALT 31 (0-40) U/L Alkaline Phosphatase 61 (39-117) U/L Total Protein 7.9 (6.5-8.0) g/dL Albumin 4.5 (3.5-5.0) g/dL TSH (0.32-4.0) uIU/mL Urine Color Urine Appearance Urine pH (5.0-9.0) Ur Specific [place] (1.005-1.025) Urine Protein (Neg-Trace) mg/dL Urine Glucose (UA) (Negative) mg/dL Urine Ketones (Negative) mg/dL Urine Blood (Negative) Urine Nitrite (Negative) Ur Leukocyte Esterase (Negative) Urine RBC (0-2) /HPF Urine WBC (0-5) /HPF Ur Squamous Epith Cells (0-2) /HPF Urine Bacteria (None Seen) Hyaline Casts (0-2) /LPF Urine Opiates Screen (Not Detect) Urine Fentanyl Screen (Not Detect) Ur Barbiturates Screen (Not Detect) Ur Phencyclidine Scrn (Not Detect) Ur Amphetamines Screen (Not Detect) U Benzodiazepines Scrn (Not Detect) Urine Cocaine Screen (Not Detect) U Marijuana (THC) Screen (Not Detect) Ethyl Alcohol 204 mg/dL COVID-19 ([facility]) (Negative) COVID-19 Clin Com 10/13/22 Range/Units 22:20 WBC (4.8-10.8) X10*3/uL RBC (4.60-5.80) X10*6/uL Hgb (14.0-18.0) g/dl Hct (42.0-52.0) % MCV (80.0-98.0) fL MCH (27.0-33.0) pg MCHC (31.0-36.0) g/dl RDW (11.0-16.0) % Plt Count (160-400) X10*3/uL MPV (9.4-12.4) fL Immature Gran % (Auto) (0.0-0.4) % Neut % (Auto) (45-73) % Lymph % (Auto) (20-40) % [place] % (Auto) (2-11) % Eos % (Auto) (0-4) % Baso % (Auto) (0-2) % Lymph # (Auto) (1.2-4.9) X10*3/uL [place] # (Auto) (0.1-1.2) X10*3/uL Eos # (Auto) (0.0-0.4) X10*3/uL Baso # (Auto) (0.0-0.2) X10*3/uL Abs Immat Gran (auto) (0.00-0.03) X10*3/uL Absolute Neuts (auto) (2.0-8.3) x10*3/uL Absolute Nucleated RBC (0.0-0.012) X10*3/uL Nucleated RBC % (auto) (0.0-0.2) /100WBC Sodium (135-145) mmol/L Potassium (3.3-5.1) mmol/L Chloride (96-108) mmol/L Carbon Dioxide (22-29) mmol/L Anion Gap (12-20) BUN (9-16) mg/dL Creatinine (0.5-1.4) mg/dL Estim Creat Clear Calc Estimated GFR Random Glucose (60-115) mg/dL Calcium (8.4-10.2) mg/dL Magnesium (1.6-2.6) mg/dL Total Bilirubin (0.0-1.0) mg/dL AST (5-37) U/L ALT (0-40) U/L Alkaline Phosphatase (39-117) U/L Total Protein (6.5-8.0) g/dL Albumin (3.5-5.0) g/dL TSH 0.70 (0.32-4.0) uIU/mL Urine Color Urine Appearance Urine pH (5.0-9.0) Ur Specific [place] (1.005-1.025) Urine Protein (Neg-Trace) mg/dL Urine Glucose (UA) (Negative) mg/dL Urine Ketones (Negative) mg/dL Urine Blood (Negative) Urine Nitrite (Negative) Ur Leukocyte Esterase (Negative) Urine RBC (0-2) /HPF Urine WBC (0-5) /HPF Ur Squamous Epith Cells (0-2) /HPF Urine Bacteria (None Seen) Hyaline Casts (0-2) /LPF Urine Opiates Screen (Not Detect) Urine Fentanyl Screen (Not Detect) Ur Barbiturates Screen (Not Detect) Ur Phencyclidine Scrn (Not Detect) Ur Amphetamines Screen (Not Detect) U Benzodiazepines Scrn (Not Detect) Urine Cocaine Screen (Not Detect) U Marijuana (THC) Screen (Not Detect) Ethyl Alcohol mg/dL COVID-19 ([facility]) (Negative) COVID-19 Clin Com Independent Historian Clinical information obtained from an independent historian. History obtained from or confirmed by: EMS Prescription Management I considered prescription management with: Other (Anxiety medications) Chronic Conditions Patient?s care impacted by: Other (Liver cirrhosis, alcohol abuse) Discharge Plan Discharge Clinical Impression: Alcohol use disorder, severe, dependence, Mood disorder Patient Disposition: Still a Patient Prescriptions: No Action nicotine 21 mg/24 hr Patch 24 Hour 21 mg transdermal DAILY Qty: 30 0RF nicotine (polacrilex) 4 mg Lozenge 4 mg buccal Q2H PRN (Reason: Nicotine Cravings) Qty: 60 0RF gabapentin 400 mg capsule 400 mg PO TID zolpidem 10 mg tablet 10 mg PO BEDTIME PRN (Reason: Insomnia) albuterol sulfate [Ventolin HFA] 90 mcg/actuation HFA aerosol inhaler 2 puff inhalation Q4-6H PRN (Reason: Shortness Of Breath) Interventions: [place]-Suicide Risk Severity Scale Last Done: 10/14/22 06:09
--- NOTE | 2022-10-14 06:15 | PC.NURSE ---
Patient slept through the night, no distress observed/reported, asymptomatic of ETOH withdrawal, CIWA score is 0, PRN Ativan 2 mg po available for withdrawal, med rec completed/pending provider's approval, patient partial compliant with his medication, labs completed/resulted, care consult ordered/pending evaluation, VSS, will continue to monitor.
--- NOTE | 2022-10-14 07:32 | PHA.MEDREC ---
Pharmacy Consult ? Medication Reconciliation Pharmacy has reviewed the medication reconciliation done by RN.
[2022-10-14 07:35] VITALS: BP 121/74; PULSE 66; RESP 18; TEMP 37; O2SAT 94
[2022-10-14] MEDS: LORazepam 1 MG TABLET 2 MG PO (09:05)
[2022-10-14] MEDS: Gabapentin 400 MG CAPSULE PO (15:09)
--- NOTE | 2022-10-14 15:12 | PC.NURSE ---
Pt awake. No s/s of distress noted.
[2022-10-15 04:58] VITALS: BP 135/81; PULSE 57; RESP 16; O2SAT 95
[2022-10-15 05:01] VITALS: BP 135/81; PULSE 52; RESP 16; TEMP 36.6; O2SAT 97
[2022-10-15] MEDS: Zolpidem Tartrate 5 MG TABLET PO (05:02)
--- NOTE | 2022-10-15 05:04 | PC.NURSE ---
Pt ambulated to bathroom. Vital signs obtained. Pt requested ambien, administered PRN per MAY.
[2022-10-15 10:29] VITALS: BP 124/72; PULSE 54; RESP 15; TEMP 37.3; O2SAT 93
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
[2022-10-15] MEDS: Gabapentin 300 MG CAPSULE 600 MG PO (11:14)
[2022-10-15] MEDS: Nicotine 21 MG PATCH.TD24 TRANSDERMA (11:14)
[2022-10-15] MEDS: Thiamine HCL 100 MG TABLET PO (11:14)
[2022-10-15] MEDS: Naltrexone HCl 50 MG TABLET 25 MG PO (11:15)
--- NOTE | 2022-10-15 13:15 | PC.NURSE ---
Billboard Poster Helper attempted to see PT for an OT 1:1 intervention. However PT was sleeping at the time of session.
--- NOTE | 2022-10-15 13:40 | MHC.CARE ---
Psychiatric consult completed by Inna Mcleod NP. CARE Team completing referral for [facility] to reconnect with services. Pt called program at [facility] and reports he can return tomorrow 10/16/22. T/w attempting to get in touch with staff.
--- NOTE | 2022-10-15 14:35 | MHC.CARE ---
Tw filled out [facility] referral form for [facility]. Emailed it to [facility] @ [phone]
--- NOTE | 2022-10-15 15:36 | MHC.CARE ---
CARE Team made aware Pt can not return to [facility] by staff. Pt will be discharged with referral to [facility].
== END 2022-10-15 16:05 | disposition home or self-care (01) ==
PROVIDERS: Emergency Provider Emergency Medicine
DX: F10.20 Alcohol dependence, uncomplicated (principal); Y90.7 Blood alcohol level of 200-239 mg/100 ml; F39 Unspecified mood [affective] disorder; Z20.822 Contact with and (suspected) exposure to COVID-19; F32.A Depression, unspecified; F41.9 Anxiety disorder, unspecified; F43.10 Post-traumatic stress disorder, unspecified; K74.60 Unspecified cirrhosis of liver; F17.210 Nicotine dependence, cigarettes, uncomplicated; Z79.899 Other long term (current) drug therapy
CPT/HCPCS: 36415; 80053; 80307; 81001; 83735; 84443; 85025; 87635; 99285; S9485

== ENCOUNTER → 2022-10-13 22:46 | Outpatient (BNV) | payer OTHER, SELFPAY | PROVIDERS: Emergency Provider Emergency Medicine; Visit Provider Social Worker | DX: F39 Unspecified mood [affective] disorder (principal); F10.20 Alcohol dependence, uncomplicated | CPT/HCPCS: 99285 ==

== ENCOUNTER 2022-10-16 09:48 | Emergency (ER) | payer OTHER, SELFPAY ==
[2022-10-16 09:59] VITALS: BP 142/81; PULSE 64; RESP 18; TEMP 36.6; O2SAT 95; BMI 28.9
--- NOTE | 2022-10-16 10:35 | ED.GENADULT ---
HPI - General Adult General Chief complaint: General Medical Stated complaint: Med refill Time Seen by Provider: 10/16/22 10:19 Source: patient Mode of arrival: ambulatory Limitations: no limitations History of Present Illness HPI narrative: 62-year-old male presents requesting medications. Patient was just discharged from our [facility] health unit with alcohol intoxication, withdrawal and other psychiatric diagnoses. Patient overall feels well at this time. Denies SI, HI. He was instructed by [facility] that he needs to restart his antidepressant. He does believe that this could be of benefit and help prevent relapses. He would like to restart citalopram at 5 mg. He has tolerated the medications before without significant side effects. Related Data Home Medications Medication Instructions Recorded Confirmed albuterol sulfate 90 mcg/actuation 2 puff inhalation Q4-6H PRN 10/13/22 10/13/22 aerosol inhaler (Ventolin HFA) Shortness Of Breath gabapentin 400 mg capsule 400 mg PO TID 10/13/22 10/13/22 zolpidem 10 mg tablet 10 mg PO BEDTIME PRN Insomnia 10/13/22 10/13/22 Previous Rx's Medication Instructions Recorded nicotine (polacrilex) 4 mg buccal 4 mg buccal Q2H PRN Nicotine 04/30/22 lozenge Cravings #60 ea nicotine 21 mg/24 hr daily 21 mg transdermal DAILY #30 ea 04/30/22 transdermal patch citalopram 10 mg tablet 10 mg PO DAILY #20 tabs 10/16/22 Allergies Allergy/AdvReac Type Severity Reaction Status Date / Time No Known Allergies Allergy Verified 10/16/22 10:01 [No Known Allergies*] Review of Systems Review of Systems: CONSTITUTIONAL: Denies weight loss, fever and chills. HEENT: Denies changes in vision and hearing. RESPIRATORY: Denies SOB and cough. CV: Denies palpitations no CP. GI: Denies abdominal pain, nausea, vomiting and diarrhea. : Denies dysuria and urinary frequency. MSK: Denies myalgia and joint pain. SKIN: Denies rash and pruritus. NEUROLOGICAL: Denies headache and syncope. PSYCHIATRIC: Denies recent changes in mood. Denies anxiety and depression. All other ROS are negative unless in HPI PMFSH Past Medical History Medical History Alcohol abuse Alcohol use disorder, severe, dependence Cirrhosis of liver Esophageal varices Mood disorder PTSD (post-traumatic stress disorder) Social History Social History Household Members: None Housing: Homeless Do you presently have visiting nurse or other home services: No Alcohol intake: never Patient Tobacco Use Status: Current everyday Tobacco user Tobacco use type: Cigarette Cigarette Packs Per Day: 1 Cigarettes Per Day: 20.0 e-Cigarette/Vaping Use: Never Used Second Hand Smoke Exposure: Yes Substance Use Type: Heroin Advance Directives: No Advance Directives Information Provided: No service: No Sexual orientation: Straight/Heterosexual Physical Exam ED Vital Signs: Vital Signs - 24 hr 10/16/22 09:59 Temperature 98 F Pulse Rate 64 Respiratory Rate 18 Blood Pressure 142/81 H Pulse Oximetry 95 Oxygen Delivery Method Room Air BMI result Body Mass Index 28.9 GEN: Well developed, no acute distress, alert, oriented HEENT: Normocephalic, atraumatic, normal external ears, nose appears normal Eyes: Normal to appearance Neck: Supple, no lymphadenopathy Respiratory: Talks in complete sentences, no respiratory distress Extremities: No clubbing cyanosis or edema Neurologic: No focal neurologic deficits, cranial nerves 2-12 intact, gait normal Skin: No rash Medical Decision Making Medical Decision Making MDM Narrative: Patient presents for medication refill. Will restart his antidepressant at 10 mg daily. I discussed the potential for side effects. I also discussed reasons to return to the hospital including if he develops any suicidal symptoms. He will arrange follow-up with his previous psychiatrist. Patient is not suicidal homicidal. Does not pose a threat to himself. Does not warrant emergent re-evaluation. Differential Diagnosis Differential Diagnoses: The differential diagnosis associated with the presentation includes (Depression anxiety mood disorder, adjustment reaction,) Prescription Management I considered prescription management with: Other (Antidepressant) Discharge Plan Discharge Clinical Impression: Mood disorder Patient Disposition: Home, Self-Care Instructions: Mood Disorders (ED), At-Risk Alcohol Use (ED) Prescriptions: New citalopram 10 mg tablet 10 mg PO DAILY Qty: 20 0RF No Action nicotine 21 mg/24 hr Patch 24 Hour 21 mg transdermal DAILY Qty: 30 0RF nicotine (polacrilex) 4 mg Lozenge 4 mg buccal Q2H PRN (Reason: Nicotine Cravings) Qty: 60 0RF gabapentin 400 mg capsule 400 mg PO TID zolpidem 10 mg tablet 10 mg PO BEDTIME PRN (Reason: Insomnia) albuterol sulfate [Ventolin HFA] 90 mcg/actuation HFA aerosol inhaler 2 puff inhalation Q4-6H PRN (Reason: Shortness Of Breath) Referrals: Physician,Unknown J [Primary Care Provider] -
== END 2022-10-16 10:53 | disposition home or self-care (01) ==
PROVIDERS: Emergency Provider Emergency Medicine
DX: F39 Unspecified mood [affective] disorder (principal); F10.20 Alcohol dependence, uncomplicated; Y90.9 Presence of alcohol in blood, level not specified; F43.10 Post-traumatic stress disorder, unspecified; F17.210 Nicotine dependence, cigarettes, uncomplicated; Z79.899 Other long term (current) drug therapy
CPT/HCPCS: 99283; 99284; S9485

== ENCOUNTER 2022-11-29 18:32 | Emergency (ER) | payer OTHER, SELFPAY ==
--- NOTE | ~2022-11-29 | XR_ITS ---
EXAMINATION: PORTABLE CHEST 1 VIEW CLINICAL INFORMATION: cough. COMPARISON: 08/12/2022. TECHNIQUE: Portable frontal view of the chest was obtained. FINDINGS: The lungs are well expanded. Chronic appearing coarsened reticular markings are again seen with prominent peribronchial cuffing bilaterally. Reactive or small airways disease would be favored. No superimposed focal infiltrate, effusion, edema, or pneumothorax. Cardiac and mediastinal silhouettes are within normal limits for technique. No acute bony abnormality seen. Left humeral hardware noted. XR/XR chest 1V IMPRESSION: Chronic appearing coarsened reticular markings and peribronchial cuffing. Reactive or small airways disease would be favored. No focal airspace disease otherwise.
--- NOTE | 2022-11-29 18:37 | ED_ITS ---
HPI - Alcohol General Chief Complaint: ETOH/Substance Use Stated Complaint: ETOH Time Seen by Provider: 11/29/22 18:35 Source: EMS Mode of arrival: EMS Limitations: no limitations History of Present Illness HPI narrative: Patient alcoholic been here in the past intoxication was found drinking the parking lot felt that he had too much drink today denied any other drugs no injuries no fall Related Data Home Medications Medication Instructions Recorded Confirmed albuterol sulfate 90 mcg/actuation 2 puff inhalation Q4-6H PRN 10/13/22 10/13/22 aerosol inhaler (Ventolin HFA) Shortness Of Breath gabapentin 400 mg capsule 400 mg PO TID 10/13/22 10/13/22 zolpidem 10 mg tablet 10 mg PO BEDTIME PRN Insomnia 10/13/22 10/13/22 Previous Rx's Medication Instructions Recorded nicotine (polacrilex) 4 mg buccal 4 mg buccal Q2H PRN Nicotine 04/30/22 lozenge Cravings #60 ea nicotine 21 mg/24 hr daily 21 mg transdermal DAILY #30 ea 04/30/22 transdermal patch citalopram 10 mg tablet 10 mg PO DAILY #20 tabs 10/16/22 Allergies Allergy/AdvReac Type Severity Reaction Status Date / Time No Known Allergies Allergy Verified 11/29/22 18:53 [No Known Allergies*] Review of Systems 2 Review of Systems: Yes all other systems are reviewed and are negative PMFSH Past Medical History Medical History Mood disorder Alcohol use disorder, severe, dependence PTSD (post-traumatic stress disorder) Alcohol abuse Esophageal varices Cirrhosis of liver Social History Social History Household Members: None Housing: Homeless Do you presently have visiting nurse or other home services: No Alcohol intake: current Alcohol intake frequency: a few times a month Alcohol type: hard liquor Patient Tobacco Use Status: Current everyday Tobacco user Tobacco use type: Cigarette Cigarette Packs Per Day: 1 Cigarettes Per Day: 20.0 e-Cigarette/Vaping Use: Never Used Second Hand Smoke Exposure: Yes Use of substances other than those prescribed or required for medical reasons: Yes Substance Use Type: Heroin Advance Directives: No service: No Sexual orientation: Straight/Heterosexual Physical Exam ED Vital Signs: Vital Signs - 24 hr 11/29/22 18:42 11/29/22 18:48 11/29/22 19:15 Temperature 97.9 F Pulse Rate 68 72 Respiratory Rate 16 14 Blood Pressure 97/54 L Pulse Oximetry 93 94 Oxygen Delivery Method Room Air Nasal Cannula Oxygen Flow Rate 2 11/29/22 20:21 11/29/22 22:08 11/30/22 00:00 Temperature 98.6 F Pulse Rate 62 58 51 Respiratory Rate 14 14 12 Blood Pressure 102/60 100/57 L 103/63 Pulse Oximetry 92 94 97 Oxygen Delivery Method Nasal Cannula Nasal Cannula Nasal Cannula Oxygen Flow Rate 3 3 3 11/30/22 02:46 11/30/22 05:02 Temperature 97.7 F Pulse Rate 56 53 Respiratory Rate 16 14 Blood Pressure 122/65 120/61 Pulse Oximetry 96 97 Oxygen Delivery Method Nasal Cannula Nasal Cannula with ETCO2 Oxygen Flow Rate 3 3 BMI result Body Mass Index 28.1 Appearance: Sleepy. Intoxicated Eyes: Pupil constricted 2 mm both sides reacting to light No Nystagmus ENT: Pharynx normal. Oral Mucosa moist AT, NC Neck: Normal inspection. Neck supple. CVS: Normal heart rate and rhythm. Pulses normal. Respiratory: No respiratory distress. Equal air entry bilateral, no wheezing/rales/rhonchi Abdomen: Soft and nontender. Bowel sounds are present, no mass palpable, no CVA tenderness Skin: Skin warm and dry. Normal skin color. Normal skin turgor. Extremities: No lower extremity edema. No calf tenderness Neuro: Intoxicated. No motor deficit. No sensory deficit.No cerebellar signs , cranial nerves II-XII intact Course Reevaluation(s) Reevaluation #1: Patient noticed to be more obtunded with pinpoint pupil received 8 mg of intranasal Narcan woke up little Time: 19:47 Medical Decision Making Medical Decision Making [facility] Narrative: Patient alcoholic , refused to go for detox vital stable discharge patient home Lab Data [facility] Lab Attestation statement: I reviewed the patient's lab results. 11/29/22 19:04 11/29/22 19:04 Labs: Lab Results 11/29/22 11/30/22 Range/Units 19:04 03:45 WBC 5.6 (4.8-10.8) X10*3/uL RBC 4.63 (4.60-5.80) X10*6/uL Hgb 14.3 (14.0-18.0) g/dl Hct 41.7 L (42.0-52.0) % MCV 90.1 (80.0-98.0) fL MCH 30.9 (27.0-33.0) pg MCHC 34.3 (31.0-36.0) g/dl RDW 13.8 (11.0-16.0) % Plt Count 142 L (160-400) X10*3/uL MPV 9.7 (9.4-12.4) fL Immature Gran % (Auto) 0.2 (0.0-0.4) % Neut % (Auto) 63.2 (45-73) % Lymph % (Auto) 25.1 (20-40) % Long % (Auto) 8.2 (2-11) % Eos % (Auto) 2.9 (0-4) % Baso % (Auto) 0.4 (0-2) % Lymph # (Auto) 1.4 (1.2-4.9) X10*3/uL Long # (Auto) 0.5 (0.1-1.2) X10*3/uL Eos # (Auto) 0.2 (0.0-0.4) X10*3/uL Baso # (Auto) 0.0 (0.0-0.2) X10*3/uL Abs Immat Gran (auto) 0.01 (0.00-0.03) X10*3/uL Absolute Neuts (auto) 3.6 (2.0-8.3) x10*3/uL Absolute Nucleated RBC 0.000 (0.0-0.012) X10*3/uL Nucleated RBC % (auto) 0.0 (0.0-0.2) /100WBC Sodium 143 (135-145) mmol/L Potassium 3.8 (3.3-5.1) mmol/L Chloride 109 H (96-108) mmol/L Carbon Dioxide 24 (22-29) mmol/L Anion Gap 14 (12-20) BUN 16 (9-16) mg/dL Creatinine 0.76 (0.5-1.4) mg/dL Estim Creat Clear Calc 106.3 Estimated GFR > 60 Random Glucose 91 (60-115) mg/dL Calcium 9.3 (8.4-10.2) mg/dL Magnesium 2.0 (1.6-2.6) mg/dL Total Bilirubin 0.4 (0.0-1.0) mg/dL AST 44 H (5-37) U/L ALT 26 (0-40) U/L Alkaline Phosphatase 53 (39-117) U/L Total Protein 7.1 (6.5-8.0) g/dL Albumin 4.2 (3.5-5.0) g/dL Urine Opiates Screen Not Detected (Not Detect) Urine Fentanyl Screen Not Detected (Not Detect) Ur Barbiturates Screen Not Detected (Not Detect) Ur Phencyclidine Scrn Not Detected (Not Detect) Ur Amphetamines Screen Not Detected (Not Detect) U Benzodiazepines Scrn Not Detected (Not Detect) Urine Cocaine Screen Not Detected (Not Detect) U Marijuana (THC) Screen Not Detected (Not Detect) Ethyl Alcohol 244 mg/dL COVID-19 (LILIANA) Negative (Negative) COVID-19 Clin Com See Note Medications Administered Discontinued Medications Generic Name Dose Route Start Last Admin Trade Name Freq PRN Reason Stop Dose Admin Albuterol Sulfate 2 puff 11/29/22 18:38 11/29/22 18:45 Albuterol Sulfate 90 Mcg 8 Gm Inhaler INHALE 11/29/22 18:39 2 puff ONCE ONE Administration Naloxone HCl 4 mg 11/29/22 19:42 11/29/22 19:50 Naloxone Hcl Nasal 4 Mg [place] NOSTRILALT 11/29/22 19:43 4 mg ONCE ONE Administration Naloxone HCl 4 mg 11/29/22 19:46 11/29/22 19:50 Naloxone Hcl Nasal 4 Mg [place] NOSTRILALT 11/29/22 19:47 4 mg ONCE ONE Administration Naloxone HCl 0.4 mg 11/29/22 19:51 11/29/22 19:56 Naloxone Hcl 0.4 Mg/Ml Vial IVPUSH 11/29/22 19:52 0.4 mg ONCE ONE Administration Discharge Plan Discharge Clinical Impression: Alcoholic intoxication Patient Disposition: Home, Self-Care Instructions: Alcohol Intoxication (ED) Additional Instructions: Stop drinking alcohol Follow up with detox Prescriptions: No Action nicotine 21 mg/24 hr Patch 24 Hour 21 mg transdermal DAILY Qty: 30 0RF nicotine (polacrilex) 4 mg Lozenge 4 mg buccal Q2H PRN (Reason: Nicotine Cravings) Qty: 60 0RF gabapentin 400 mg capsule 400 mg PO TID zolpidem 10 mg tablet 10 mg PO BEDTIME PRN (Reason: Insomnia) albuterol sulfate [Ventolin HFA] 90 mcg/actuation HFA aerosol inhaler 2 puff inhalation Q4-6H PRN (Reason: Shortness Of Breath) citalopram 10 mg tablet 10 mg PO DAILY Qty: 20 0RF
[2022-11-29 18:42] VITALS: BP 102/62; BP 97/54; PULSE 68; PULSE 84; RESP 16; TEMP 36.6; O2SAT 93; O2SAT 94; BMI 28.1
[2022-11-29] MEDS: Albuterol Sulfate 90 MCG 8 GM INHALER 2 PUFF INHALE (18:45)
[2022-11-29 18:48] VITALS: PULSE 72; RESP 14; O2SAT 90
--- NOTE | 2022-11-29 18:54 | PC.NURSE ---
pt brought by ems. pt drowsy but wakes to name and verbal stimulus. ems reports pt was found on a park bench with a bag of vodka nips, reports of sponsor being at pt side due to patient attending AA meetings. pt reports use of heroin of unknown amounts. 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
--- NOTE | 2022-11-29 19:10 | PC.NURSE ---
Assumed care of pt. pt somnolent at this time. During handover, this RN was with prior shift assessing pt, pt had minimal responses to questions, stating daily use of ETOH, heroin and other stuff . At this time. pt maintaining airway, O2 saturation on room air at 89%. repositioned pt to upright position, placed on O2 via NC at 2L with improvement to 94%. Charge notified of condition. Pt otherwise stable at this time.
[2022-11-29 19:12] LABS: MANUAL DIFF FLAG NO
[2022-11-29 19:14] LABS: Basophils Percent Auto 0.4 % (0-2); Eosinophils Absolute Auto 0.2 X10*3/uL (0.0-0.4); Eosinophils Percent Auto 2.9 % (0-4); Hematocrit 41.7 % (42.0-52.0); Hemoglobin 14.3 g/dl (14.0-18.0); Imm Gran Abs Auto 0.01 X10*3/uL (0.00-0.03); Imm Gran Pct Auto 0.2 % (0.0-0.4); Lymphocytes Absolute Auto 1.4 X10*3/uL (1.2-4.9); Lymphocytes Percent Auto 25.1 % (20-40); Mean Corpuscular HGB Conc 34.3 g/dl (31.0-36.0); Mean Corpuscular Hemoglobin 30.9 pg (27.0-33.0); Mean Corpuscular Volume 90.1 fL (80.0-98.0); Mean Platelet Volume 9.7 fL (9.4-12.4); Monocytes Absolute Auto 0.5 X10*3/uL (0.1-1.2); Monocytes Percent Auto 8.2 % (2-11); Neutrophils Absolute Auto 3.6 x10*3/uL (2.0-8.3); Neutrophils Percent Auto 63.2 % (45-73); Platelet Count 142 X10*3/uL (160-400); Red Blood Count 4.63 X10*6/uL (4.60-5.80); Red Cell Distribution Width 13.8 % (11.0-16.0); White Blood Count 5.6 X10*3/uL (4.8-10.8)
[2022-11-29 19:15] VITALS: O2SAT 94
[2022-11-29 19:29] LABS: Alanine Aminotransferase 26 U/L (0-40); Albumin Level 4.2 g/dL (3.5-5.0); Alkaline Phosphatase 53 U/L (39-117); Anion Gap 14 (12-20); Aspartate Amino Transferase 44 U/L (5-37); Bilirubin Total 0.4 mg/dL (0.0-1.0); Blood Urea Nitrogen 16 mg/dL (9-16); Calcium 9.3 mg/dL (8.4-10.2); Carbon Dioxide 24 mmol/L (22-29); Chloride 109 mmol/L (96-108); Creatinine Clr Calc Pharmacy 106.3; Estimated Glomerular Filt Rate > 60; Ethanol 244 mg/dL; Glucose Random 91 mg/dL (60-115); Potassium 3.8 mmol/L (3.3-5.1); Sodium 143 mmol/L (135-145); Total Protein 7.1 g/dL (6.5-8.0)
[2022-11-29 19:31] LABS: COVID-19 Test Negative (Negative); IDNOW Serial# 08D9AD1C
[2022-11-29] MEDS: Naloxone HCl Nasal 4 MG SPRAY NOSTRILALT ×2 (19:50)
[2022-11-29] MEDS: Naloxone HCl 0.4 MG/ML VIAL IVPUSH (19:56)
[2022-11-29 20:21] VITALS: BP 102/60; PULSE 62; RESP 14; O2SAT 92
[2022-11-29 22:08] VITALS: BP 100/57; PULSE 58; RESP 14; TEMP 37; O2SAT 94
[2022-11-30] VITALS: BP 103/63; PULSE 51; RESP 12; O2SAT 97
[2022-11-30 02:46] VITALS: BP 122/65; PULSE 56; RESP 16; TEMP 36.5; O2SAT 96
[2022-11-30 03:59] LABS: Amphetamine Screen Urine Not Detected (Not Detect); Barbiturates, Urine Not Detected (Not Detect); Benzodiazepines Screen Urine Not Detected (Not Detect); Cannabinoid Screen Urine Not Detected (Not Detect); Cocaine Screen Urine Not Detected (Not Detect); Fentanyl, urine Not Detected (Not Detect); Opiate Screen Urine Not Detected (Not Detect); Phencyclidine Screen Urine Not Detected (Not Detect)
--- NOTE | 2022-11-30 04:15 | PC.NURSE ---
This RN took over care of patient at 1940. Patient somnolent, not responsive to verbal or painful stimuli, VSS, maintaining airway.Pupils pinpoint. brass sorter and this RN at bedside. notified, Pt given Narcan 4mg nasally with no effect, 2nd dose given with minimal effect. Minimal effect, ordered 0.4mg IV Narcan. Administered as ordered. Pt responsive to painful and sternal rub. Only endorsing alcohol use. Labs drawn, IV placed#[id number]-forearm. Awaiting urine specimen. changed over, pt sleeping.
--- NOTE | 2022-11-30 05:01 | PC.NURSE ---
Pt arousable to touch, denies any pain at this time. Pt refusing bathroom or to get up at this time. aware. Awaiting new orders. Pt resting in bed, vitals remain stable.
[2022-11-30 05:02] VITALS: BP 120/61; PULSE 53; RESP 14; O2SAT 97
[2022-11-30 05:25] VITALS: BP 129/81; PULSE 72; RESP 15; O2SAT 96
== END 2022-11-30 05:30 | disposition home or self-care (01) ==
PROVIDERS: Emergency Provider Internal Medicine
DX: F10.220 Alcohol dependence with intoxication, uncomplicated (principal); Y90.8 Blood alcohol level of 240 mg/100 ml or more; Z20.822 Contact with and (suspected) exposure to COVID-19; F17.210 Nicotine dependence, cigarettes, uncomplicated; Z79.899 Other long term (current) drug therapy
CPT/HCPCS: 36415; 71045; 80053; 80307; 83735; 85025; 87635; 94640; 96374; 99285

== ENCOUNTER 2023-01-07 18:50 | Inpatient (IN) | payer OTHER, SELFPAY ==
[2023-01-07 18:55] VITALS: BP 124/65; PULSE 81; RESP 18; TEMP 36.5; O2SAT 94; BMI 28.7
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
[2023-01-07 19:13] LABS: MANUAL DIFF FLAG NO
[2023-01-07 19:15] LABS: Basophils Percent Auto 0.4 % (0-2); Eosinophils Absolute Auto 0.2 X10*3/uL (0.0-0.4); Eosinophils Percent Auto 2.6 % (0-4); Hematocrit 46.8 % (42.0-52.0); Hemoglobin 15.9 g/dl (14.0-18.0); Imm Gran Abs Auto 0.03 X10*3/uL (0.00-0.03); Imm Gran Pct Auto 0.4 % (0.0-0.4); Lymphocytes Absolute Auto 1.5 X10*3/uL (1.2-4.9); Lymphocytes Percent Auto 21.3 % (20-40); Mean Corpuscular Hemoglobin 30.6 pg (27.0-33.0); Mean Corpuscular Volume 90.2 fL (80.0-98.0); Mean Platelet Volume 9.8 fL (9.4-12.4); Monocytes Absolute Auto 0.8 X10*3/uL (0.1-1.2); Monocytes Percent Auto 10.7 % (2-11); Neutrophils Absolute Auto 4.7 x10*3/uL (2.0-8.3); Neutrophils Percent Auto 64.6 % (45-73); Platelet Count 162 X10*3/uL (160-400); Red Blood Count 5.19 X10*6/uL (4.60-5.80); Red Cell Distribution Width 13.3 % (11.0-16.0); White Blood Count 7.2 X10*3/uL (4.8-10.8)
[2023-01-07 19:27] LABS: COVID-19 Test Negative (Negative); IDNOW Serial# BCCEAD1C
[2023-01-07 19:31] LABS: Acetaminophen LAB < 17 mcg/mL (<30); Salicylate < 5.0 mg/dL (15-30)
[2023-01-07 19:41] LABS: Appearance Urine Clear; Color Urine Dark Yellow; Glucose Urine UA Negative (Negative); Leukocyte Esterase Urine Negative (Negative); Nitrite Urine Negative (Negative); Urine Blood Negative (Negative); Urine Ketones Trace mg/dL (Negative); Urine Protein Negative (Neg-Trace)
[2023-01-07 19:44] LABS: Amphetamine Screen Urine Not Detected (Not Detect); Barbiturates, Urine Not Detected (Not Detect); Benzodiazepines Screen Urine POSITIVE (Not Detect); Cannabinoid Screen Urine Not Detected (Not Detect); Cocaine Screen Urine Not Detected (Not Detect); Fentanyl, urine Not Detected (Not Detect); Opiate Screen Urine Not Detected (Not Detect); Phencyclidine Screen Urine Not Detected (Not Detect)
[2023-01-07] MEDS: Gabapentin 400 MG CAPSULE PO (20:02)
[2023-01-07] MEDS: Acetaminophen 325 MG TABLET 975 MG PO (20:02)
[2023-01-07] MEDS: Zolpidem Tartrate 5 MG TABLET 10 MG PO (20:02)
[2023-01-07] MEDS: ARIPiprazole 5 MG TABLET PO (20:02)
[2023-01-07 20:25] LABS: Alanine Aminotransferase 27 U/L (0-40); Albumin Level 4.3 g/dL (3.5-5.0); Alkaline Phosphatase 82 U/L (39-117); Anion Gap 15 (12-20); Aspartate Amino Transferase 29 U/L (5-37); Bilirubin Total 0.4 mg/dL (0.0-1.0); Blood Urea Nitrogen 9 mg/dL (9-16); Calcium 9.5 mg/dL (8.4-10.2); Carbon Dioxide 26 mmol/L (22-29); Chloride 107 mmol/L (96-108); Creatinine Clr Calc Pharmacy 94.8; Estimated Glomerular Filt Rate > 60; Ethanol 183 mg/dL; Glucose Random 106 mg/dL (60-115); Sodium 144 mmol/L (135-145); Total Protein 7.4 g/dL (6.5-8.0)
[2023-01-07 21:44] VITALS: BP 106/64; PULSE 77; RESP 20; TEMP 36.8; O2SAT 95
[2023-01-07] MEDS: diphenhydrAMINE HCL 25 MG CAPSULE 50 MG PO (21:52)
--- NOTE | 2023-01-08 | ECG_ITS ---
Test Reason : CHECK PROLOMG QT Blood Pressure : / mmHG Vent. Rate : 053 BPM Atrial Rate : 053 BPM P-R Int : 124 ms QRS Dur : 102 ms QT Int : 478 ms P-R-T Axes : 148 146 146 degrees QTc Int : 448 ms Suspect limb lead reversal, interpretation assumes no reversal Unusual P axis, possible ectopic atrial bradycardia Left posterior fascicular block Nonspecific ST and T wave abnormality Abnormal ECG When compared with ECG of 12-AUG-2022 10:50, Ectopic atrial rhythm has replaced Sinus rhythm T wave inversion now evident in Lateral leads limb leads reversed, advise repeat study Referred By: Federico Lopez Electronically Signed By:MARIXA BOLANOS MD
[2023-01-08 06:00] VITALS: RESP 16
--- NOTE | 2023-01-08 06:17 | PC.NURSE ---
Patient slept through the night, no distress observed/reported, behavior pleasant and non concerning, labs completed/resulted/reviewed, medication compliant, care consult ordered for SI/pending evaluation, patient is currently asymptomatic of ETOH withdrawal. CIWA is negative, patient reported he has no history of ETOH withdrawal, VSS, will continue to monitor.
[2023-01-08 08:22] VITALS: BP 150/73; PULSE 76; RESP 18; TEMP 36.6; O2SAT 96
[2023-01-08] MEDS: ARIPiprazole 5 MG TABLET PO (09:32)
[2023-01-08] MEDS: Gabapentin 400 MG CAPSULE PO ×2 (09:32→20:50)
[2023-01-08] MEDS: Escitalopram Oxalate 5 MG TABLET PO (09:32)
--- NOTE | 2023-01-08 11:30 | PHA.MEDREC ---
Pharmacy Consult ? Medication Reconciliation Pharmacy has reviewed the medication reconciliation completed by pharmacy.
[2023-01-08 18:00] VITALS: BP 141/66; PULSE 71; TEMP 35.6; O2SAT 99
--- NOTE | 2023-01-08 20:09 | PC.ADMIT ---
PT is a 62 year old swedish speaking male that arrived on this unit @ 16:40 from the [facility] POD and was placed on 15 safety checks. Legal status: CV. PT self presented to the ED with SI with a plan to overdose on Fentanyl. PT reports feeling hopeless and helpless due to lifelong substance use and not being med adherent to treat his Bipolar I disorder. PT reports being off of his meds for at least a month. PT has a history of a multitude of psych and detox admissions, most recently was at a dual diagnosis facility ([facility]) where he stayed for about a month. PT was here on M5 in Apr 2022. Pt has a history of 3 state intermediate incarcerations that took up mostly the first half of his life. PT reports sporadic binges on alcohol and not daily use. PT not exhibiting any signs of alcohol withdrawal. PT reports illicit substance use only when intoxicated on alcohol. PT present with passive SI at this time without a plan. COVID neg, tox + for benzos and BAL was noted to be 183 upon arrival. VSS @ this time. PT denies HI/AH/VH. PT is a everyday smoker but refuses NRT at this time. PT refuses the annual flu vaccine. Admission orders obtained, legals signed, [place] plan and safety tool completed. Continue plan of care.
[2023-01-08] MEDS: Zolpidem Tartrate 5 MG TABLET 10 MG PO (20:50)
[2023-01-09 08:45] VITALS: BP 125/75; PULSE 59; RESP 18; TEMP 36.6; O2SAT 94
[2023-01-09] MEDS: Escitalopram Oxalate 5 MG TABLET PO (09:06)
[2023-01-09] MEDS: ARIPiprazole 5 MG TABLET PO (09:06)
[2023-01-09] MEDS: Gabapentin 400 MG CAPSULE PO ×3 (09:06→21:17)
[2023-01-09] MEDS: Nicotine 21 MG PATCH.TD24 TRANSDERMA (09:07)
[2023-01-09 09:33] LABS: Estimated Average Glucose 94 mg/dL; Hemoglobin A1c % 4.9 % (<6.0)
[2023-01-09 09:46] LABS: Cholesterol 170 mg/dL (<200); HDL Cholesterol 61 mg/dL (>40); LDL Cholesterol Calculated 101 mg/dL (<100); Triglycerides 40 mg/dL (<150)
[2023-01-09 10:08] LABS: Free T4 (Free Thyroxine) 0.71 ng/dL (0.71-1.85); Thyroid Stimulating Hormone 0.83 uIU/mL (0.32-4.0)
[2023-01-09 10:14] LABS: Folate 11.1 ng/mL (> or = 4.0); Vitamin B12 844 pg/mL (200-900)
[2023-01-09 17:01] VITALS: BP 128/83; PULSE 65; RESP 16; TEMP 36.2; O2SAT 95
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
[2023-01-09] MEDS: Zolpidem Tartrate 5 MG TABLET 10 MG PO (21:17)
[2023-01-09] MEDS: Doxepin HCl 25 MG CAPSULE PO (21:17)
--- NOTE | 2023-01-09 21:25 | PC.NURSE ---
Addendum entered by KHALIF Ferguson 01/09/23 21:27: Correction: Sunday 01/14. Original Note: Pt submitted a Three Day Notice on Saturday01/09/2023 up on Saturday01/04/2023.
[2023-01-10 07:00] VITALS: BMI 28.9
[2023-01-10] MEDS: Gabapentin 400 MG CAPSULE PO ×3 (08:16→21:06)
[2023-01-10] MEDS: ARIPiprazole 5 MG TABLET PO (08:16)
[2023-01-10] MEDS: Nicotine 21 MG PATCH.TD24 TRANSDERMA (08:16)
[2023-01-10] MEDS: Multivitamin TABLET 1 TAB PO (08:16)
[2023-01-10] MEDS: Escitalopram Oxalate 5 MG TABLET PO (08:16)
--- NOTE | 2023-01-10 09:00 | ECG_ITS ---
Test Reason : check qtc Blood Pressure : / mmHG Vent. Rate : 055 BPM Atrial Rate : 055 BPM P-R Int : 136 ms QRS Dur : 098 ms QT Int : 450 ms P-R-T Axes : 075 078 082 degrees QTc Int : 430 ms Sinus bradycardia Otherwise normal ECG When compared with ECG of 08-JAN-2023 16:11, No significant change was found Referred By: Renu Rasmussen Electronically Signed By:MARIXA BOLANOS MD
[2023-01-10 09:16] VITALS: BP 121/73; PULSE 62; RESP 16; TEMP 36.1; O2SAT 93
--- NOTE | 2023-01-10 10:13 | P.PNPSI_ITS ---
Subjective Subjective Date of Service: 01/10/23 Reason For Visit: PTSD Bipolar Disorder Alcohol Use Disorder Subjective Notes: Conditional Voluntary and 3 Day Healthcare Proxy: No Guardianship: No Medical Problems Affecting Mental Status: No Interim History: Reports feeling improved. Tolerating medication re-stabilization process. Discussed three day notice, states he was told he had to sign this or he would have to remain for 90 days. Education provided. Medication Compliance: Yes Side effects from medications: No Attending Groups: Intermittent Review of Systems Acute medical concerns: No Medical Review of Systems: unchanged Mental Status Exam Mental Status Exam Patient Appearance: Appropriate Patient Orientation: Person, Place, Time and Situation Level of Consciousness: Alert Patient Behavior: Appropriate, Talkative, Cooperative and Good Eye Contact Mood Description: Depressed Affect Description: Flat Patient Cognition Impaired: No Ability to Follow Directions: Good Speech Pattern: Spontaneous Speech Memory Description: Intact Hallucinations: None Delusions: Not Present Thought Process: Rumination Thought Content: positive for Perseveration Judgement: Good Diagnostics Vital Signs (24Hr): Vital Signs - 24 hr 01/09/23 17:01 01/10/23 09:16 Temperature 97.2 F 97 F Pulse Rate 65 62 Respiratory Rate 16 16 Blood Pressure 128/83 121/73 Pulse Oximetry 95 93 Oxygen Delivery Method Room Air Room Air BMI result Body Mass Index 28.9 Labs 01/07/23 19:07 01/07/23 20:05 Labs: Laboratory Results - last 48 hr 01/09/23 08:20 Estimat Average Glucose 94 Hemoglobin A1c % 4.9 Magnesium 2.0 Triglycerides 40 Cholesterol 170 LDL Cholesterol, Calc 101 H HDL Cholesterol 61 Vitamin B12 844 Folate 11.1 TSH 0.83 Free T4 0.71 Medications Medications Current Medications Acetaminophen (Acetaminophen 325 Mg Tablet) 650 mg PO Q6H PRN PRN Reason: Headache/Pain Mild Scale (1-3) Al Hydroxide/Mg Hydroxide (Magnesium Hydrox/Alum Hydrox 30 Ml Oral.Susp) 30 ml PO Q6H PRN PRN Reason: Heartburn/Nausea Albuterol Sulfate (Albuterol Sulfate 90 Mcg 8 Gm Inhaler) 2 puff INHALE Q4H PRN PRN Reason: Shortness Of Breath Or Wheezing Aripiprazole (Aripiprazole 5 Mg Tablet) 5 mg PO DAILY [facility] Last Admin: 01/10/23 08:16 Dose: 5 mg Doxepin HCl (Doxepin Hcl 25 Mg Capsule) 25 mg PO BEDTIME [facility] Last Admin: 01/09/23 21:17 Dose: 25 mg Escitalopram Oxalate (Escitalopram Oxalate 5 Mg Tablet) 5 mg PO DAILY [facility] Last Admin: 01/10/23 08:16 Dose: 5 mg Gabapentin (Gabapentin 400 Mg Capsule) 400 mg PO TID [facility] Last Admin: 01/10/23 08:16 Dose: 400 mg Guaifenesin/Dextromethorphan (Guaifenesin Dm 200/20/10 Ml 10 Ml Syrup) 10 ml PO Q4H PRN PRN Reason: Cough Hydroxyzine HCl (Hydroxyzine Hcl 50 Mg Tablet) 50 mg PO Q8H PRN PRN Reason: Anxiety Magnesium Hydroxide (Milk Of Magnesia 30 Ml Oral.Susp) 30 ml PO DAILY PRN PRN Reason: Constipation Multivitamins/Vitamin C (Multivitamin Tablet) 1 tab PO DAILY [facility] Last Admin: 01/10/23 08:16 Dose: 1 tab Nicotine (Nicotine 21 Mg Patch.Td24) 21 mg TRANSDERMA DAILY [facility] Last Admin: 01/10/23 08:16 Dose: 21 mg Trazodone HCl (Trazodone Hcl 50 Mg Tablet) 50 mg PO BEDTIME MRX1 PRN PRN Reason: Insomnia Zolpidem Tartrate (Zolpidem Tartrate 5 Mg Tablet) 10 mg PO BEDTIME PRN PRN Reason: Insomnia Last Admin: 01/09/23 21:17 Dose: 10 mg Allergies Allergies Allergy/AdvReac Type Severity Reaction Status Date / Time No Known Allergies Allergy Verified 11/29/22 18:53 [No Known Allergies*] Assessment & Plan Assessment & Plan (1) Bipolar disorder: Status: Acute Code(s): F31.9 - Bipolar disorder, unspecified (2) PTSD (post-traumatic stress disorder): Status: Acute Code(s): F43.10 - Post-traumatic stress disorder, unspecified (3) Alcohol use disorder, severe, dependence: Status: Acute Code(s): F10.20 - Alcohol dependence, uncomplicated (4) Sedative, hypnotic or anxiolytic use disorder, mild, abuse: Status: Acute Code(s): F13.10 - Sedative, hypnotic or anxiolytic abuse, uncomplicated Plan 01/11/23- Continue current regime and plan of care Patient educated on: therapeutic strategies Informed Consent: understands Reason for continued inpatient stay Substantial Risk for: harm to self Time Spent With Patient Time: Total time managing care of this patient today ____ minutes.
[2023-01-10] MEDS: Zolpidem Tartrate 5 MG TABLET 10 MG PO (21:06)
[2023-01-10] MEDS: Doxepin HCl 25 MG CAPSULE PO (21:07)
[2023-01-10 21:34] VITALS: BP 134/63; PULSE 70; RESP 16; TEMP 36.2; O2SAT 95
[2023-01-11] MEDS: Escitalopram Oxalate 5 MG TABLET PO (08:04)
[2023-01-11] MEDS: Gabapentin 400 MG CAPSULE PO ×3 (08:04→20:55)
[2023-01-11] MEDS: ARIPiprazole 5 MG TABLET PO (08:04)
[2023-01-11] MEDS: Multivitamin TABLET 1 TAB PO (08:04)
[2023-01-11] MEDS: Nicotine 21 MG PATCH.TD24 TRANSDERMA (08:05)
[2023-01-11 08:16] VITALS: BP 115/58; PULSE 62; RESP 18; TEMP 36.6; O2SAT 95
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
[2023-01-11 17:38] VITALS: BP 135/63; PULSE 66; RESP 18; TEMP 36.7; O2SAT 95
[2023-01-11] MEDS: Zolpidem Tartrate 5 MG TABLET 10 MG PO (20:54)
[2023-01-11] MEDS: OLANZapine ODT 10 MG TAB.RAPDIS TRANSLINGU (20:54)
[2023-01-11] MEDS: Doxepin HCl 25 MG CAPSULE 50 MG PO (20:55)
[2023-01-12 08:55] VITALS: BP 134/63; PULSE 62; RESP 18; TEMP 36.6; O2SAT 94
[2023-01-12] MEDS: Multivitamin TABLET 1 TAB PO (08:55)
[2023-01-12] MEDS: ARIPiprazole 5 MG TABLET PO (08:55)
[2023-01-12] MEDS: Gabapentin 400 MG CAPSULE PO ×3 (08:56→20:18)
[2023-01-12] MEDS: Escitalopram Oxalate 5 MG TABLET PO (08:56)
[2023-01-12] MEDS: Nicotine 21 MG PATCH.TD24 TRANSDERMA (08:56)
--- NOTE | 2023-01-12 09:53 | P.PNPSI_ITS ---
Subjective Subjective Date of Service: 01/12/23 Reason For Visit: PTSD Bipolar Disorder Alcohol Use Disorder Interim History: With patient; discussed with team; reviewed notes Patient reports that he is feeling good... A lot better than when [he came in patient said he is sleeping well; denies any SI. Feels that medications are helping Mental Status Exam Mental Status Exam Patient Appearance: Appropriate Patient Orientation: Person, Place, Time and Situation Level of Consciousness: Alert Patient Behavior: Appropriate, Talkative, Cooperative and Good Eye Contact Mood Description: Depressed Affect Description: Flat Patient Cognition Impaired: No Ability to Follow Directions: Good Speech Pattern: Spontaneous Speech Memory Description: Intact Hallucinations: None Delusions: Not Present Thought Process: Rumination Thought Content: positive for Perseveration Judgement: Good Diagnostics Vital Signs (24Hr): Vital Signs - 24 hr 01/11/23 17:38 01/12/23 08:55 Temperature 98.0 F 98 F Pulse Rate 66 62 Respiratory Rate 18 18 Blood Pressure 135/63 134/63 Pulse Oximetry 95 94 Oxygen Delivery Method Room Air Room Air BMI result Body Mass Index 28.9 Labs 01/07/23 19:07 01/07/23 20:05 Medications Medications Current Medications Acetaminophen (Acetaminophen 325 Mg Tablet) 650 mg PO Q6H PRN PRN Reason: Headache/Pain Mild Scale (1-3) Al Hydroxide/Mg Hydroxide (Magnesium Hydrox/Alum Hydrox 30 Ml Oral.Susp) 30 ml PO Q6H PRN PRN Reason: Heartburn/Nausea Albuterol Sulfate (Albuterol Sulfate 90 Mcg 8 Gm Inhaler) 2 puff INHALE Q4H PRN PRN Reason: Shortness Of Breath Or Wheezing Aripiprazole (Aripiprazole 5 Mg Tablet) 5 mg PO DAILY [facility] Last Admin: 01/12/23 08:55 Dose: 5 mg Doxepin HCl (Doxepin Hcl 25 Mg Capsule) 50 mg PO BEDTIME [facility] Last Admin: 01/11/23 20:55 Dose: 50 mg Escitalopram Oxalate (Escitalopram Oxalate 5 Mg Tablet) 5 mg PO DAILY [facility] Last Admin: 01/12/23 08:56 Dose: 5 mg Gabapentin (Gabapentin 400 Mg Capsule) 400 mg PO TID [facility] Last Admin: 01/12/23 08:56 Dose: 400 mg Guaifenesin/Dextromethorphan (Guaifenesin Dm 200/20/10 Ml 10 Ml Syrup) 10 ml PO Q4H PRN PRN Reason: Cough Hydroxyzine HCl (Hydroxyzine Hcl 50 Mg Tablet) 50 mg PO Q8H PRN PRN Reason: Anxiety Magnesium Hydroxide (Milk Of Magnesia 30 Ml Oral.Susp) 30 ml PO DAILY PRN PRN Reason: Constipation Multivitamins/Vitamin C (Multivitamin Tablet) 1 tab PO DAILY [facility] Last Admin: 01/12/23 08:55 Dose: 1 tab Nicotine (Nicotine 21 Mg Patch.Td24) 21 mg TRANSDERMA DAILY [facility] Last Admin: 01/12/23 08:56 Dose: 21 mg Olanzapine (Olanzapine Odt 10 Mg Tab.Rapdis) 10 mg TRANSLINGU BEDTIME [facility] Last Admin: 01/11/23 20:54 Dose: 10 mg Trazodone HCl (Trazodone Hcl 50 Mg Tablet) 50 mg PO BEDTIME MRX1 PRN PRN Reason: Insomnia Zolpidem Tartrate (Zolpidem Tartrate 5 Mg Tablet) 10 mg PO BEDTIME PRN PRN Reason: Insomnia Last Admin: 01/11/23 20:54 Dose: 10 mg Allergies Allergies Allergy/AdvReac Type Severity Reaction Status Date / Time No Known Allergies Allergy Verified 11/29/22 18:53 [No Known Allergies*] Assessment & Plan Assessment & Plan (1) Bipolar disorder: Status: Acute Code(s): F31.9 - Bipolar disorder, unspecified (2) PTSD (post-traumatic stress disorder): Status: Acute Code(s): F43.10 - Post-traumatic stress disorder, unspecified (3) Alcohol use disorder, severe, dependence: Status: Acute Code(s): F10.20 - Alcohol dependence, uncomplicated (4) Sedative, hypnotic or anxiolytic use disorder, mild, abuse: Status: Acute Code(s): F13.10 - Sedative, hypnotic or anxiolytic abuse, uncomplicated Plan 01/10/23- Continue current regime and plan of care 01/11/23- Increase Doxepin to 50 mg HS (hx of 75 mg) Zydis 10 mg hs (trial for racing thoughts) 01/12/23 continue current treatment regimen Patient educated on: diagnosis and medication risk/benefits Informed Consent: understands Reason for continued inpatient stay Substantial Risk for: rapid decompensation Time Spent With Patient Time: Total time managing care of this patient today ____ minutes.
[2023-01-12 18:20] VITALS: BP 135/73; PULSE 74; RESP 16; TEMP 36.1; O2SAT 95
[2023-01-12] MEDS: Zolpidem Tartrate 5 MG TABLET 10 MG PO (20:18)
[2023-01-12] MEDS: OLANZapine ODT 10 MG TAB.RAPDIS TRANSLINGU (20:19)
[2023-01-12] MEDS: Doxepin HCl 25 MG CAPSULE 50 MG PO (20:19)
[2023-01-13] MEDS: Multivitamin TABLET 1 TAB PO (08:26)
[2023-01-13] MEDS: ARIPiprazole 5 MG TABLET PO (08:26)
[2023-01-13] MEDS: Nicotine 21 MG PATCH.TD24 TRANSDERMA (08:26)
[2023-01-13] MEDS: Gabapentin 400 MG CAPSULE PO ×3 (08:26→21:21)
[2023-01-13] MEDS: Escitalopram Oxalate 5 MG TABLET PO (08:26)
[2023-01-13 08:32] VITALS: BP 107/64; PULSE 60; RESP 18; TEMP 36.2; O2SAT 96
--- NOTE | 2023-01-13 10:05 | HO.PSYCHPN ---
Subjective Subjective Date of Service: 01/13/23 Reason For Visit: PTSD Bipolar Disorder Alcohol Use Disorder Interim History: Met with patient; discussed with team Patient maintains that he is overall feeling better. Staff noticed that he was a little more irritable lately to which quality analyst/technical writer inquired; patient explained that it is only because he is going back to the same situation he left and he is not looking forward to that Mental Status Exam Mental Status Exam Patient Appearance: Appropriate Patient Orientation: Person, Place, Time and Situation Level of Consciousness: Alert Patient Behavior: Appropriate, Talkative, Cooperative and Good Eye Contact Mood Description: Depressed Affect Description: Flat Patient Cognition Impaired: No Ability to Follow Directions: Good Speech Pattern: Spontaneous Speech Memory Description: Intact Hallucinations: None Delusions: Not Present Thought Process: Rumination Thought Content: positive for Perseveration Judgement: Good Diagnostics Vital Signs (24Hr): Vital Signs - 24 hr 01/12/23 18:20 01/13/23 08:32 Temperature 97.0 F 97.1 F Pulse Rate 74 60 Respiratory Rate 16 18 Blood Pressure 135/73 107/64 Pulse Oximetry 95 96 Oxygen Delivery Method Room Air Room Air BMI result Body Mass Index 28.9 Labs 01/07/23 19:07 01/07/23 20:05 Medications Medications Current Medications Acetaminophen (Acetaminophen 325 Mg Tablet) 650 mg PO Q6H PRN PRN Reason: Headache/Pain Mild Scale (1-3) Al Hydroxide/Mg Hydroxide (Magnesium Hydrox/Alum Hydrox 30 Ml Oral.Susp) 30 ml PO Q6H PRN PRN Reason: Heartburn/Nausea Albuterol Sulfate (Albuterol Sulfate 90 Mcg 8 Gm Inhaler) 2 puff INHALE Q4H PRN PRN Reason: Shortness Of Breath Or Wheezing Aripiprazole (Aripiprazole 5 Mg Tablet) 5 mg PO DAILY [facility] Last Admin: 01/13/23 08:26 Dose: 5 mg Doxepin HCl (Doxepin Hcl 25 Mg Capsule) 50 mg PO BEDTIME [facility] Last Admin: 01/12/23 20:19 Dose: 50 mg Escitalopram Oxalate (Escitalopram Oxalate 5 Mg Tablet) 5 mg PO DAILY [facility] Last Admin: 01/13/23 08:26 Dose: 5 mg Gabapentin (Gabapentin 400 Mg Capsule) 400 mg PO TID [facility] Last Admin: 01/13/23 08:26 Dose: 400 mg Guaifenesin/Dextromethorphan (Guaifenesin Dm 200/20/10 Ml 10 Ml Syrup) 10 ml PO Q4H PRN PRN Reason: Cough Hydroxyzine HCl (Hydroxyzine Hcl 50 Mg Tablet) 50 mg PO Q8H PRN PRN Reason: Anxiety Magnesium Hydroxide (Milk Of Magnesia 30 Ml Oral.Susp) 30 ml PO DAILY PRN PRN Reason: Constipation Multivitamins/Vitamin C (Multivitamin Tablet) 1 tab PO DAILY [facility] Last Admin: 01/13/23 08:26 Dose: 1 tab Nicotine (Nicotine 21 Mg Patch.Td24) 21 mg TRANSDERMA DAILY [facility] Last Admin: 01/13/23 08:26 Dose: 21 mg Olanzapine (Olanzapine Odt 10 Mg Tab.Rapdis) 10 mg TRANSLINGU BEDTIME [facility] Last Admin: 01/12/23 20:19 Dose: 10 mg Trazodone HCl (Trazodone Hcl 50 Mg Tablet) 50 mg PO BEDTIME MRX1 PRN PRN Reason: Insomnia Zolpidem Tartrate (Zolpidem Tartrate 5 Mg Tablet) 10 mg PO BEDTIME PRN PRN Reason: Insomnia Last Admin: 01/12/23 20:18 Dose: 10 mg Allergies Allergies Allergy/AdvReac Type Severity Reaction Status Date / Time No Known Allergies Allergy Verified 11/29/22 18:53 [No Known Allergies*] Assessment & Plan Assessment & Plan (1) Bipolar disorder: Status: Acute Code(s): F31.9 - Bipolar disorder, unspecified (2) PTSD (post-traumatic stress disorder): Status: Acute Code(s): F43.10 - Post-traumatic stress disorder, unspecified (3) Alcohol use disorder, severe, dependence: Status: Acute Code(s): F10.20 - Alcohol dependence, uncomplicated (4) Sedative, hypnotic or anxiolytic use disorder, mild, abuse: Status: Acute Code(s): F13.10 - Sedative, hypnotic or anxiolytic abuse, uncomplicated Plan 01/10/23- Continue current regime and plan of care 01/11/23- Increase Doxepin to 50 mg HS (hx of 75 mg) Zydis 10 mg hs (trial for racing thoughts) 01/12/23 continue current treatment regimen 01/13/2023 continue current treatment regimen Patient educated on: diagnosis Informed Consent: understands Reason for continued inpatient stay Substantial Risk for: stable for discharge Time Spent With Patient Time: Total time managing care of this patient today ____ minutes.
[2023-01-13 16:33] VITALS: BP 150/71; PULSE 68; RESP 16; TEMP 36.3; O2SAT 97
[2023-01-13] MEDS: Zolpidem Tartrate 5 MG TABLET 10 MG PO (21:19)
[2023-01-13] MEDS: Doxepin HCl 25 MG CAPSULE 50 MG PO (21:20)
[2023-01-13] MEDS: OLANZapine ODT 10 MG TAB.RAPDIS TRANSLINGU (21:21)
[2023-01-13] MEDS: guaiFENesin DM 200/20/10 ML 10 ML SYRUP PO (21:22)
[2023-01-14 08:00] VITALS: BP 126/73; PULSE 61; TEMP 36.2; O2SAT 94
[2023-01-14] MEDS: Multivitamin TABLET 1 TAB PO (09:05)
[2023-01-14] MEDS: ARIPiprazole 5 MG TABLET PO (09:05)
[2023-01-14] MEDS: Escitalopram Oxalate 5 MG TABLET PO (09:05)
[2023-01-14] MEDS: Gabapentin 400 MG CAPSULE PO ×3 (09:05→20:50)
[2023-01-14] MEDS: Nicotine 21 MG PATCH.TD24 TRANSDERMA (09:06)
--- NOTE | 2023-01-14 14:37 | HO.PSYCHPN ---
Subjective Subjective Date of Service: 01/14/23 Reason For Visit: PTSD Bipolar Disorder Alcohol Use Disorder Subjective Notes: Conditional Voluntary Healthcare Proxy: No Guardianship: No Medical Problems Affecting Mental Status: No Interim History: I will try Campral. No, no CSS. It is time for me to be an adult and structure my own days in a positive way. Discussion of treatment options, cirrhosis, Vivitrol, Campral and his needs moving forward in order to remain sober. Discussed past issues with relapse and his plans for moving ahead taking into consideration what he can do differently to help himself. Medication Compliance: Yes Side effects from medications: No Attending Groups: Intermittent Review of Systems Acute medical concerns: No Medical Review of Systems: unchanged Mental Status Exam Mental Status Exam Patient Appearance: Fatigued Patient Orientation: Person, Place, Time and Situation Level of Consciousness: Alert Patient Behavior: Appropriate, Talkative, Cooperative and Anxious Mood Description: Anxious Affect Description: Apprehensive Patient Cognition Impaired: No Ability to Follow Directions: Good Speech Pattern: Spontaneous Speech Memory Description: Episodic Impaired Hallucinations: None Delusions: Not Present Thought Process: Distracted and Rumination Thought Content: positive for Perseveration and positive for Suicidal Ideation (denies) Depressive Symptoms: Thoughts of /Suicide (denies) Judgement: Good Diagnostics Vital Signs (24Hr): Vital Signs - 24 hr 01/13/23 16:33 01/14/23 08:00 Temperature 97.4 F 97.2 F Pulse Rate 68 61 Respiratory Rate 16 Blood Pressure 150/71 H 126/73 Pulse Oximetry 97 94 Oxygen Delivery Method Room Air Room Air BMI result Body Mass Index 28.9 Labs 01/07/23 19:07 01/07/23 20:05 Medications Medications Current Medications Acetaminophen (Acetaminophen 325 Mg Tablet) 650 mg PO Q6H PRN PRN Reason: Headache/Pain Mild Scale (1-3) Al Hydroxide/Mg Hydroxide (Magnesium Hydrox/Alum Hydrox 30 Ml Oral.Susp) 30 ml PO Q6H PRN PRN Reason: Heartburn/Nausea Albuterol Sulfate (Albuterol Sulfate 90 Mcg 8 Gm Inhaler) 2 puff INHALE Q4H PRN PRN Reason: Shortness Of Breath Or Wheezing Aripiprazole (Aripiprazole 5 Mg Tablet) 5 mg PO DAILY [facility] Last Admin: 01/14/23 09:05 Dose: 5 mg Doxepin HCl (Doxepin Hcl 25 Mg Capsule) 50 mg PO BEDTIME [facility] Last Admin: 01/13/23 21:20 Dose: 50 mg Escitalopram Oxalate (Escitalopram Oxalate 5 Mg Tablet) 5 mg PO DAILY [facility] Last Admin: 01/14/23 09:05 Dose: 5 mg Gabapentin (Gabapentin 400 Mg Capsule) 400 mg PO TID [facility] Last Admin: 01/14/23 09:05 Dose: 400 mg Guaifenesin/Dextromethorphan (Guaifenesin Dm 200/20/10 Ml 10 Ml Syrup) 10 ml PO Q4H PRN PRN Reason: Cough Last Admin: 01/13/23 21:22 Dose: 10 ml Hydroxyzine HCl (Hydroxyzine Hcl 50 Mg Tablet) 50 mg PO Q8H PRN PRN Reason: Anxiety Magnesium Hydroxide (Milk Of Magnesia 30 Ml Oral.Susp) 30 ml PO DAILY PRN PRN Reason: Constipation Multivitamins/Vitamin C (Multivitamin Tablet) 1 tab PO DAILY [facility] Last Admin: 01/14/23 09:05 Dose: 1 tab Nicotine (Nicotine 21 Mg Patch.Td24) 21 mg TRANSDERMA DAILY [facility] Last Admin: 01/14/23 09:06 Dose: 21 mg Olanzapine (Olanzapine Odt 10 Mg Tab.Rapdis) 10 mg TRANSLINGU BEDTIME [facility] Last Admin: 01/13/23 21:21 Dose: 10 mg Trazodone HCl (Trazodone Hcl 50 Mg Tablet) 50 mg PO BEDTIME MRX1 PRN PRN Reason: Insomnia Zolpidem Tartrate (Zolpidem Tartrate 5 Mg Tablet) 10 mg PO BEDTIME PRN PRN Reason: Insomnia Last Admin: 01/13/23 21:19 Dose: 10 mg Allergies Allergies Allergy/AdvReac Type Severity Reaction Status Date / Time No Known Allergies Allergy Verified 11/29/22 18:53 [No Known Allergies*] Assessment & Plan Assessment & Plan (1) Bipolar disorder: Status: Acute Code(s): F31.9 - Bipolar disorder, unspecified (2) PTSD (post-traumatic stress disorder): Status: Acute Code(s): F43.10 - Post-traumatic stress disorder, unspecified (3) Alcohol use disorder, severe, dependence: Status: Acute Code(s): F10.20 - Alcohol dependence, uncomplicated (4) Sedative, hypnotic or anxiolytic use disorder, mild, abuse: Status: Acute Code(s): F13.10 - Sedative, hypnotic or anxiolytic abuse, uncomplicated Plan 01/10/23- Continue current regime and plan of care 01/11/23- Increase Doxepin to 50 mg HS (hx of 75 mg) Zydis 10 mg hs (trial for racing thoughts) 01/12/23 continue current treatment regimen 01/13/2023 continue current treatment regimen 01/14/23 Campral 333 mg tid Increase Doxepin to 75 mg (base dose at home) Patient educated on: medication risk/benefits Informed Consent: understands and further education needed Reason for continued inpatient stay Substantial Risk for: rapid decompensation Time Spent With Patient Time: Total time managing care of this patient today ____ minutes.
[2023-01-14 17:42] VITALS: BP 131/71; PULSE 71; RESP 16; TEMP 36.5; O2SAT 96
[2023-01-14] MEDS: Doxepin HCl 25 MG CAPSULE 75 MG PO (20:50)
[2023-01-14] MEDS: Zolpidem Tartrate 5 MG TABLET 10 MG PO (20:50)
[2023-01-14] MEDS: OLANZapine ODT 10 MG TAB.RAPDIS TRANSLINGU (20:50)
[2023-01-14] MEDS: Acamprosate Calcium 333 MG TABLET.DR PO (20:50)
[2023-01-15] MEDS: Nicotine 21 MG PATCH.TD24 TRANSDERMA (09:25)
[2023-01-15] MEDS: ARIPiprazole 5 MG TABLET PO (09:25)
[2023-01-15] MEDS: Acamprosate Calcium 333 MG TABLET.DR PO ×3 (09:26→20:34)
[2023-01-15] MEDS: Gabapentin 400 MG CAPSULE PO ×3 (09:26→20:33)
[2023-01-15] MEDS: Multivitamin TABLET 1 TAB PO (09:26)
[2023-01-15] MEDS: Escitalopram Oxalate 5 MG TABLET PO (09:26)
[2023-01-15 09:28] VITALS: PULSE 84; RESP 18; TEMP 36.3; O2SAT 94
--- NOTE | 2023-01-15 13:17 | PC.NURSE ---
Pt signed a 3 day on 01/15/2023 due to resolve on 01/18/23, all providers notified, status changed.
--- NOTE | 2023-01-15 16:03 | P.PNPSI_ITS ---
Subjective Subjective Date of Service: 01/15/23 Reason For Visit: PTSD Bipolar Disorder Alcohol Use Disorder Subjective Notes: Conditional Voluntary and 3 Day Healthcare Proxy: No Guardianship: No Medical Problems Affecting Mental Status: No Interim History: TDN signed. Discussed discharge with pt, will plan to discharge 12/17 and he agrees. Discussed Campral trial. No adverse effects thus far. Discussed feeling somewhat overwhelmed to return to room-mate, but it is complex, he has always been a strong supporter of my recovery. Medication Compliance: Yes Side effects from medications: No Attending Groups: Intermittent Review of Systems Acute medical concerns: No Medical Review of Systems: unchanged Mental Status Exam Mental Status Exam Patient Appearance: Fatigued Patient Orientation: Person, Place, Time and Situation Level of Consciousness: Alert Patient Behavior: Appropriate, Talkative, Cooperative and Anxious Mood Description: Anxious Affect Description: Apprehensive Patient Cognition Impaired: No Ability to Follow Directions: Good Speech Pattern: Spontaneous Speech Memory Description: Episodic Impaired Hallucinations: None Delusions: Not Present Thought Process: Distracted and Rumination Thought Content: positive for Perseveration and positive for Suicidal Ideation (denies) Depressive Symptoms: Thoughts of /Suicide (denies) Judgement: Good Diagnostics Vital Signs (24Hr): Vital Signs - 24 hr 01/14/23 17:42 01/15/23 09:28 Temperature 97.7 F 97.3 F Pulse Rate 71 84 Respiratory Rate 16 18 Blood Pressure 131/71 Pulse Oximetry 96 94 Oxygen Delivery Method Room Air Room Air BMI result Body Mass Index 28.9 Labs 01/07/23 19:07 01/07/23 20:05 Medications Medications Current Medications Acamprosate (Acamprosate Calcium 333 Mg Tablet.) 333 mg PO TID [facility] Last Admin: 01/15/23 15:03 Dose: 333 mg Acetaminophen (Acetaminophen 325 Mg Tablet) 650 mg PO Q6H PRN PRN Reason: Headache/Pain Mild Scale (1-3) Al Hydroxide/Mg Hydroxide (Magnesium Hydrox/Alum Hydrox 30 Ml Oral.Susp) 30 ml PO Q6H PRN PRN Reason: Heartburn/Nausea Albuterol Sulfate (Albuterol Sulfate 90 Mcg 8 Gm Inhaler) 2 puff INHALE Q4H PRN PRN Reason: Shortness Of Breath Or Wheezing Aripiprazole (Aripiprazole 5 Mg Tablet) 5 mg PO DAILY [facility] Last Admin: 01/15/23 09:25 Dose: 5 mg Doxepin HCl (Doxepin Hcl 25 Mg Capsule) 75 mg PO BEDTIME [facility] Last Admin: 01/14/23 20:50 Dose: 75 mg Escitalopram Oxalate (Escitalopram Oxalate 5 Mg Tablet) 5 mg PO DAILY [facility] Last Admin: 01/15/23 09:26 Dose: 5 mg Gabapentin (Gabapentin 400 Mg Capsule) 400 mg PO TID [facility] Last Admin: 01/15/23 15:03 Dose: 400 mg Guaifenesin/Dextromethorphan (Guaifenesin Dm 200/20/10 Ml 10 Ml Syrup) 10 ml PO Q4H PRN PRN Reason: Cough Last Admin: 01/13/23 21:22 Dose: 10 ml Hydroxyzine HCl (Hydroxyzine Hcl 50 Mg Tablet) 50 mg PO Q8H PRN PRN Reason: Anxiety Magnesium Hydroxide (Milk Of Magnesia 30 Ml Oral.Susp) 30 ml PO DAILY PRN PRN Reason: Constipation Multivitamins/Vitamin C (Multivitamin Tablet) 1 tab PO DAILY [facility] Last Admin: 01/15/23 09:26 Dose: 1 tab Nicotine (Nicotine 21 Mg Patch.Td24) 21 mg TRANSDERMA DAILY [facility] Last Admin: 01/15/23 09:25 Dose: 21 mg Olanzapine (Olanzapine Odt 10 Mg Tab.Rapdis) 10 mg TRANSLINGU BEDTIME [facility] Last Admin: 01/14/23 20:50 Dose: 10 mg Trazodone HCl (Trazodone Hcl 50 Mg Tablet) 50 mg PO BEDTIME MRX1 PRN PRN Reason: Insomnia Zolpidem Tartrate (Zolpidem Tartrate 5 Mg Tablet) 10 mg PO BEDTIME PRN PRN Reason: Insomnia Last Admin: 01/14/23 20:50 Dose: 10 mg Allergies Allergies Allergy/AdvReac Type Severity Reaction Status Date / Time No Known Allergies Allergy Verified 11/29/22 18:53 [No Known Allergies*] Assessment & Plan Assessment & Plan (1) Bipolar disorder: Status: Acute Code(s): F31.9 - Bipolar disorder, unspecified (2) PTSD (post-traumatic stress disorder): Status: Acute Code(s): F43.10 - Post-traumatic stress disorder, unspecified (3) Alcohol use disorder, severe, dependence: Status: Acute Code(s): F10.20 - Alcohol dependence, uncomplicated (4) Sedative, hypnotic or anxiolytic use disorder, mild, abuse: Status: Acute Code(s): F13.10 - Sedative, hypnotic or anxiolytic abuse, uncomplicated Plan 01/10/23- Continue current regime and plan of care 01/11/23- Increase Doxepin to 50 mg HS (hx of 75 mg) Zydis 10 mg hs (trial for racing thoughts) 01/12/23 continue current treatment regimen 01/13/2023 continue current treatment regimen 01/14/23 Campral 333 mg tid Increase Doxepin to 75 mg (base dose at home) 01/15/23 Continue regime and plan of care. Patient educated on: medication risk/benefits and therapeutic strategies Informed Consent: understands Reason for continued inpatient stay Substantial Risk for: rapid decompensation Time Spent With Patient Time: Total time managing care of this patient today ____ minutes.
[2023-01-15 18:00] VITALS: BP 145/70; PULSE 68; TEMP 36.5; O2SAT 97
[2023-01-15] MEDS: Zolpidem Tartrate 5 MG TABLET 10 MG PO (20:33)
[2023-01-15] MEDS: Doxepin HCl 25 MG CAPSULE 75 MG PO (20:33)
[2023-01-15] MEDS: OLANZapine ODT 10 MG TAB.RAPDIS TRANSLINGU (20:34)
[2023-01-16 08:33] VITALS: BP 128/69; PULSE 73; RESP 16; TEMP 36.3; O2SAT 95
[2023-01-16] MEDS: Multivitamin TABLET 1 TAB PO (08:45)
[2023-01-16] MEDS: ARIPiprazole 5 MG TABLET PO (08:45)
[2023-01-16] MEDS: Gabapentin 400 MG CAPSULE PO ×3 (08:45→22:00)
[2023-01-16] MEDS: Escitalopram Oxalate 5 MG TABLET PO (08:45)
[2023-01-16] MEDS: Acamprosate Calcium 333 MG TABLET.DR PO (08:45)
[2023-01-16] MEDS: Nicotine 21 MG PATCH.TD24 TRANSDERMA (08:52)
--- NOTE | 2023-01-16 14:57 | P.PNPSI_ITS ---
Subjective Subjective Date of Service: 01/16/23 Reason For Visit: PTSD Bipolar Disorder Alcohol Use Disorder Subjective Notes: Conditional Voluntary Healthcare Proxy: No Guardianship: No Medical Problems Affecting Mental Status: No Medication Compliance: Yes Side effects from medications: No Attending Groups: Intermittent Review of Systems Acute medical concerns: No Medical Review of Systems: unchanged Review of Systems Review of Systems Yes all other systems are reviewed and are negative Mental Status Exam Mental Status Exam Patient Appearance: Fatigued Patient Orientation: Person, Place, Time and Situation Level of Consciousness: Alert Patient Behavior: Appropriate, Talkative, Cooperative and Anxious Mood Description: Anxious Affect Description: Apprehensive Patient Cognition Impaired: No Ability to Follow Directions: Good Speech Pattern: Spontaneous Speech Memory Description: Episodic Impaired Hallucinations: None Delusions: Not Present Thought Process: Distracted and Rumination Thought Content: positive for Perseveration and positive for Suicidal Ideation (denies) Depressive Symptoms: Thoughts of /Suicide (denies) Judgement: Good Diagnostics Vital Signs (24Hr): Vital Signs - 24 hr 01/15/23 18:00 01/16/23 08:33 Temperature 97.7 F 97.4 F Pulse Rate 68 73 Respiratory Rate 16 Blood Pressure 145/70 H 128/69 Pulse Oximetry 97 95 Oxygen Delivery Method Room Air Room Air BMI result Body Mass Index 28.9 Labs 01/07/23 19:07 01/07/23 20:05 Medications Medications Current Medications Acamprosate (Acamprosate Calcium 333 Mg Tablet.Dr) 666 mg PO TID ON LICENSE OF [facility] Acetaminophen (Acetaminophen 325 Mg Tablet) 650 mg PO Q6H PRN PRN Reason: Headache/Pain Mild Scale (1-3) Al Hydroxide/Mg Hydroxide (Magnesium Hydrox/Alum Hydrox 30 Ml Oral.Susp) 30 ml PO Q6H PRN PRN Reason: Heartburn/Nausea Albuterol Sulfate (Albuterol Sulfate 90 Mcg 8 Gm Inhaler) 2 puff INHALE Q4H PRN PRN Reason: Shortness Of Breath Or Wheezing Aripiprazole (Aripiprazole 5 Mg Tablet) 5 mg PO DAILY ON LICENSE OF [facility] Last Admin: 01/16/23 08:45 Dose: 5 mg Doxepin HCl (Doxepin Hcl 25 Mg Capsule) 75 mg PO BEDTIME ON LICENSE OF [facility] Last Admin: 01/15/23 20:33 Dose: 75 mg Escitalopram Oxalate (Escitalopram Oxalate 10 Mg Tablet) 10 mg PO DAILY ON LICENSE OF [facility] Gabapentin (Gabapentin 400 Mg Capsule) 400 mg PO TID ON LICENSE OF [facility] Last Admin: 01/16/23 08:45 Dose: 400 mg Guaifenesin/Dextromethorphan (Guaifenesin Dm 200/20/10 Ml 10 Ml Syrup) 10 ml PO Q4H PRN PRN Reason: Cough Last Admin: 01/13/23 21:22 Dose: 10 ml Hydroxyzine HCl (Hydroxyzine Hcl 50 Mg Tablet) 50 mg PO Q8H PRN PRN Reason: Anxiety Magnesium Hydroxide (Milk Of Magnesia 30 Ml Oral.Susp) 30 ml PO DAILY PRN PRN Reason: Constipation Multivitamins/Vitamin C (Multivitamin Tablet) 1 tab PO DAILY ON LICENSE OF [facility] Last Admin: 01/16/23 08:45 Dose: 1 tab Nicotine (Nicotine 21 Mg Patch.Td24) 21 mg TRANSDERMA DAILY ON LICENSE OF [facility] Last Admin: 01/16/23 08:52 Dose: 21 mg Olanzapine (Olanzapine Odt 10 Mg Tab.Rapdis) 10 mg TRANSLINGU BEDTIME ON LICENSE OF [facility] Last Admin: 01/15/23 20:34 Dose: 10 mg Trazodone HCl (Trazodone Hcl 50 Mg Tablet) 50 mg PO BEDTIME MRX1 PRN PRN Reason: Insomnia Zolpidem Tartrate (Zolpidem Tartrate 5 Mg Tablet) 10 mg PO BEDTIME PRN PRN Reason: Insomnia Last Admin: 01/15/23 20:33 Dose: 10 mg Allergies Allergies Allergy/AdvReac Type Severity Reaction Status Date / Time No Known Allergies Allergy Verified 11/29/22 18:53 [No Known Allergies*] Assessment & Plan Assessment & Plan (1) Bipolar disorder: Status: Acute Code(s): F31.9 - Bipolar disorder, unspecified (2) PTSD (post-traumatic stress disorder): Status: Acute Code(s): F43.10 - Post-traumatic stress disorder, unspecified (3) Alcohol use disorder, severe, dependence: Status: Acute Code(s): F10.20 - Alcohol dependence, uncomplicated (4) Sedative, hypnotic or anxiolytic use disorder, mild, abuse: Status: Acute Code(s): F13.10 - Sedative, hypnotic or anxiolytic abuse, uncomplicated Plan 01/10/23- Continue current regime and plan of care 01/11/23- Increase Doxepin to 50 mg HS (hx of 75 mg) Zydis 10 mg hs (trial for racing thoughts) 01/12/23 continue current treatment regimen 01/13/2023 continue current treatment regimen 01/14/23 Campral 333 mg tid Increase Doxepin to 75 mg (base dose at home) 01/16/23 Review of all meds prior to discharge and discussion of changes.... - dc olanzapine - decrease doxepin to 25 mg hs - increase Lexapro to 10 mg a.m. - dc Trazodone Patient educated on: medication risk/benefits and therapeutic strategies Informed Consent: understands Reason for continued inpatient stay Substantial Risk for: rapid decompensation Time Spent With Patient Time: Total time managing care of this patient today ____ minutes.
[2023-01-16] MEDS: Acamprosate Calcium 333 MG TABLET.DR 666 MG PO ×2 (14:58→21:59)
[2023-01-16] MEDS: Doxepin HCl 25 MG CAPSULE 75 MG PO (22:00)
[2023-01-16] MEDS: OLANZapine ODT 10 MG TAB.RAPDIS TRANSLINGU (22:01)
[2023-01-16 22:30] VITALS: BP 140/67; PULSE 73; TEMP 36.4; O2SAT 95
[2023-01-17] MEDS: Nicotine 21 MG PATCH.TD24 TRANSDERMA (08:38)
[2023-01-17] MEDS: ARIPiprazole 5 MG TABLET PO (08:39)
[2023-01-17] MEDS: Gabapentin 400 MG CAPSULE PO (08:39)
[2023-01-17] MEDS: Acamprosate Calcium 333 MG TABLET.DR 666 MG PO (08:39)
[2023-01-17] MEDS: Escitalopram Oxalate 10 MG TABLET PO (08:39)
[2023-01-17] MEDS: Multivitamin TABLET 1 TAB PO (08:39)
[2023-01-17 09:36] VITALS: BP 136/72; PULSE 71; RESP 16; TEMP 36.3; O2SAT 96
--- NOTE | 2023-01-17 12:57 | P.DS_ITS ---
DS: Providers Provider Date of Service: 01/17/23 Date of admission: 01/08/23 13:26 Date of discharge: 01/17/23 Primary care physician: Samara Hunter MD Admitting clinician: Renu Rasmussen Attending physician on admission: Gaurav Ba Attending physician on discharge: Gaurav Ba Discharging clinician: Renu Rasmussen DS: Diagnosis Discharge Diagnosis (1) Bipolar disorder: Status: Acute (2) PTSD (post-traumatic stress disorder): Status: Acute (3) Alcohol use disorder, severe, dependence: Status: Acute (4) Sedative, hypnotic or anxiolytic use disorder, mild, abuse: Status: Resolved DS: Medications Discharge Medications Home Medications: Previous Rx's Medication Instructions Recorded acamprosate 333 mg tablet,delayed 666 mg (2 x 333 mg) PO TID #90 tabs 01/17/23 release albuterol sulfate 90 mcg/actuation 2 puff inhalation Q4-6H PRN 01/17/23 aerosol inhaler (Ventolin HFA) Shortness Of Breath Or Wheezing #1 inhaler aripiprazole 5 mg tablet 5 mg PO QAM #30 tabs 01/17/23 doxepin 25 mg capsule 25 mg PO BEDTIME #30 caps 01/17/23 escitalopram oxalate 10 mg tablet 10 mg PO DAILY #30 tabs 01/17/23 gabapentin 400 mg capsule 400 mg PO TID #90 caps 01/17/23 hydrocortisone 1 % topical cream 1 appl topical QID PRN rash #454 01/17/23 grams multivitamin (Daily-Jerilyn tablet) 1 tab PO DAILY #30 tabs 01/17/23 nicotine (polacrilex) 4 mg buccal 4 mg buccal Q2H PRN Nicotine 01/17/23 lozenge Cravings #60 ea nicotine 21 mg/24 hr daily 21 mg transdermal DAILY #30 ea 01/17/23 transdermal patch zolpidem 10 mg tablet (Ambien) 10 mg PO BEDTIME PRN insomnia #20 01/17/23 tabs Mental Status Exam Mental Status Exam Patient Appearance: Fatigued Patient Orientation: Person, Place, Time and Situation Level of Consciousness: Alert Patient Behavior: Appropriate, Talkative, Cooperative and Anxious Mood Description: Anxious Affect Description: Apprehensive Patient Cognition Impaired: No Ability to Follow Directions: Good Speech Pattern: Spontaneous Speech Memory Description: Episodic Impaired Hallucinations: None Delusions: Not Present Thought Process: Distracted and Rumination Thought Content: positive for Perseveration and positive for Suicidal Ideation (denies) Depressive Symptoms: Thoughts of /Suicide (denies) Judgement: Good DS: Summary Hospital Course Hospital Course: Admission to adult psychiatry for exacerbation of PTSD, Bipolar Disorder and Alcohol Use Disorder. Pt with SI and plan on admission. He reports stopping medicine a few weeks prior to admission and accidential overdose 4 weeks ago on alcohol and fentanyl. He left [facility] after a long admission and now lives with a room-mate. The transition has been difficult, however, he is committed to trying to make this work. Reports one night of relapse [employer]. On the unit medications were assessed, re-started and adjusted with Bacilio. There were no instances of behavioral dyscontrol, Bacilio participated in the milieu and was interactive with peers and in group. He plans a return to his home and will follow up with [facility] for out patient care upon discharge. He discharges without SI/HI, sx of hilda or psychosis. Time spent discussing smoking cessation with patient: 3 to 10 minutes Status at Discharge Functional status at discharge: independent ambulation Overall status at discharge: patient is back to baseline Time Spent with Patient Time attestation: Total time managing care of this patient today ____ minutes. Time spent: Greater than 30 minutes Discharge Plan Discharge Anticipated Discharge Date/Time: 01/17/23 12:15 Patient Disposition: Home, Self-Care Discharge Diagnosis: PTSD Bipolar Disorder Alcohol Use Disorder Referrals: [facility] [employer] ([facility]): Isa Hope (therapist) [Other] - 01/22/23 11:00 am (Initial diagnostic evaluation for therapy services Appointment in person at [facility]) [facility] ([facility]): Psychiatry [Other] - 1 Week (Hospital discharge appointment Initial psychiatric evaluation for medication management services ) Samara Hunter MD [Primary Care Provider] - 01/25/23 11:15 am (in office) Discharge Medications: New multivitamin [Daily-Jerilyn] Tablet 1 tab PO DAILY Qty: 30 0RF escitalopram oxalate 10 mg Tablet 10 mg PO DAILY Qty: 30 0RF acamprosate 333 mg Tablet,Delayed Release (Dr/Ec) 666 mg PO TID Qty: 90 0RF doxepin 25 mg capsule 25 mg PO BEDTIME Qty: 30 0RF zolpidem [Ambien] 10 mg tablet 10 mg PO BEDTIME PRN (Reason: insomnia) Qty: 20 0RF hydrocortisone 1 % cream 1 appl topical QID PRN (Reason: rash) Qty: 454 0RF Continued gabapentin 400 mg capsule 400 mg PO TID Qty: 90 0RF nicotine 21 mg/24 hr Patch 24 Hour 21 mg transdermal DAILY Qty: 30 0RF albuterol sulfate [Ventolin HFA] 90 mcg/actuation HFA aerosol inhaler 2 puff inhalation Q4-6H PRN (Reason: Shortness Of Breath Or Wheezing) Qty: 1 0RF nicotine (polacrilex) 4 mg Lozenge 4 mg buccal Q2H PRN (Reason: Nicotine Cravings) Qty: 60 0RF aripiprazole 5 mg tablet 5 mg PO QAM Qty: 30 0RF Discontinued zolpidem 10 mg tablet 10 mg PO BEDTIME PRN (Reason: Insomnia) citalopram 10 mg tablet 10 mg PO DAILY Qty: 20 0RF Discharge Orders: Discharge Order (Routine); Ordered 01/17/23 Ordered By: Renu Rasmussen Diet: Advance to usual diet Activity on Discharge: As tolerated Stand Alone Forms: Patient Portal Discharge page, Community Support Care Plan Goals: Mood and Behavioral Stabilization Sobriety Health Concerns: Mood and Behavioral Stabilization Sobriety Plan of Treatment: Attend scheduled appointments Take medications as directed Assessment: Scheduled discharge Discharge Date/Time: 01/17/23 11:55
== END 2023-01-17 11:55 | disposition home or self-care (01) | DRG 753 ==
LOC: HO.ED 01-08 01:34 → HO.PM5 01-08 13:33
PROVIDERS: Physician Assistant Medical; Admitting Provider Psychiatry & Neurology Psychiatry; Emergency Provider Emergency Medicine; PCP Internal Medicine; Visit Provider Clinical Nurse Specialist Psychiatric/Mental Health, Adult
DX: F31.9 Bipolar disorder, unspecified (principal); R45.851 Suicidal ideations; F17.210 Nicotine dependence, cigarettes, uncomplicated; F10.20 Alcohol dependence, uncomplicated; F13.10 Sedative, hypnotic or anxiolytic abuse, uncomplicated; F43.10 Post-traumatic stress disorder, unspecified; Z20.822 Contact with and (suspected) exposure to COVID-19; Y90.6 Blood alcohol level of 120-199 mg/100 ml; Z71.6 Tobacco abuse counseling; Z79.899 Other long term (current) drug therapy
CPT/HCPCS: 36415; 80053; 80061; 80143; 80179; 80307; 81003; 82607; 82746; 83036; 83735; 84439; 84443; 85025; 87635; 93005; 99285; S9485

== ENCOUNTER → 2023-01-08 13:26 | Outpatient (BNV) | payer OTHER, SELFPAY | PROVIDERS: Admitting Provider Psychiatry & Neurology Psychiatry; Emergency Provider Emergency Medicine; PCP Internal Medicine; Visit Provider Clinical Nurse Specialist Psychiatric/Mental Health, Adult | DX: F31.4 Bipolar disorder, current episode depressed, severe, without psychotic features (principal); F13.10 Sedative, hypnotic or anxiolytic abuse, uncomplicated; F10.20 Alcohol dependence, uncomplicated; F43.11 Post-traumatic stress disorder, acute | CPT/HCPCS: 90792; 99231; 99232; 99239 ==

== ENCOUNTER 2023-04-19 08:51 | Outpatient (AMB) | payer OTHER, SELFPAY ==
--- NOTE | 2023-04-19 09:07 | A.OFFVIS_ITS ---
Intake Intake Visit Reasons: LDCT SD Allergies No Known Allergies [No Known Allergies*] Allergy (Verified 11/29/22 18:53) HPI HPI Comments History of Present Illness Details Bacilio is a pleasant 63 year old male, current smoker with a 50 PYH. Patient has been smoking since age 13 for 50 years at 1 ppd. Denies marijuana use. Admits exposure to asbestos, nickel, chromium and iron dust. 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 Admits second hand smoke exposure. Denies known family history of lung cancer. Denies personal history of cancers. Denies chest CT in last year. Denies recent travel outside the [place]. Admits testing positive for COVID. Admits receiving COVID Vaccine. Denies fever, chills, chest pain, new cough, hemoptysis or unintentional weight loss. Lung Cancer Screening Questionnaire reviewed with patient by provider. Shared Decision Making Completed. Discussed in detail with patient, the risk versus benefit of LDCT screening. Patient in agreement of proceeding with scan. [facility] Medical History (Updated 04/19/23 @ 09:17 by Scarlet Braden NP) Sedative, hypnotic or anxiolytic use disorder, mild, abuse Mood disorder Alcohol use disorder, severe, dependence PTSD (post-traumatic stress disorder) Alcohol abuse Esophageal varices Cirrhosis of liver Social History (Updated 04/19/23 @ 09:37 by Scarlet Braden NP) Household Members: Other Household Members Other:: room mate Housing: House Do you presently have visiting nurse or other home services: No Alcohol intake: current Alcohol intake frequency: a few times a month Alcohol type: hard liquor Patient Tobacco Use Status: Current everyday Tobacco user Tobacco use type: Cigarette Cigarette Packs Per Day: 1 Cigarettes Per Day: 20.0 Years Smoked: 50 e-Cigarette/Vaping Use: Never Used Second Hand Smoke Exposure: No Substance Use Type: Crack/Cocaine and Opiates service: No Sexual orientation: Straight/Heterosexual Assessment & Plan Assessment & Plan (1) Nicotine dependence, cigarettes, uncomplicated: Code(s): F17.210 - Nicotine dependence, cigarettes, uncomplicated Plan Shared decision-making visit completed today in office. This patient meets criteria for LDCT for lung cancer screening purposes and is asymptomatic. Offered smoking cessation, patient would like to be referred to nurse navigator. Patient has been scheduled for a low dose chest CT for screening purposes at [facility]. We discussed how the results will be obtained depending on CT findings. RADS 1 and RADS 2 will receive a letter with results and will follow up for annual LDCT. Patient informed they will be contacted at later date to schedule upcoming LDCT scan. RADS 3 and RADS 4 will receive a telephone call, or an office visit after reviewing case at our Lung Cancer Conference to determine when the next LDCT will be scheduled or further interventions that may be needed. Discussed importance of screening program and compliance with yearly LDCT scan as scheduled. Risks, benefits, and alternatives were discussed in detail and patient agrees to proceed. Risks discussed include but are not limited to: radiation exposure and possibility of additional intervention for benign disease. Benefits include detection of lung cancer at an early stage. A copy of today's visit and LDCT results will be sent to patient's PCP. Incidental findings on LDCT are PCP's responsibility. If there are incidental findings, our office will ensure that PCP office is aware of these findings. All questions were answered and patient is in agreement of plan. Orders: Referrals Nurse Navigator Referral F17.210 - Nicotine dependence, cigarettes, uncomplicated Coding Level of Care Code Lung Cancer Screening G0296 Diagnoses Nicotine dependence, cigarettes, uncomplicated F17.210
== END 2023-04-19 10:41 | disposition home or self-care (01) ==
PROVIDERS: PCP Internal Medicine; Visit Provider Nurse Practitioner Family
DX: F17.210 Nicotine dependence, cigarettes, uncomplicated (principal)
CPT/HCPCS: G0296

== ENCOUNTER 2023-04-19 09:18 | Outpatient (REF) | payer OTHER, SELFPAY ==
--- NOTE | ~2023-04-19 | CT_ITS ---
EXAMINATION: CT CHEST SCREENING CLINICAL INFORMATION: Current 48 [id number] history smoker. COMPARISON: No chest CTs. 11/29/2022 chest radiograph. TECHNIQUE: Multidetector volumetric CT imaging of the chest is performed without contrast using low dose technique. Additional 2D coronal and sagittal reformatted images and axial 3D maximum intensity projection (MIP) images are generated on the CT workstation. This CT examination was performed using dose optimization techniques as appropriate, variously including the following: *Automated exposure control *Adjustment of mA and/or kV according to patient size (this includes techniques or standardized protocols for targeted exams where dose is matched to indication/reason for exam; i.e. extremities or head) *Use of iterative reconstruction technique DLP: 51 mGy-cm FINDINGS: STORE PLANNER: Mild left base atelectasis. Left upper quadrant metallic densities. Partial visualization left humeral surgical hardware. LUNGS: Trachea and bronchi are patent. Underlying hyperinflation with mild centrilobular emphysema. Scattered atelectasis. 3 mm subpleural RLL nodule, 5:386. MEDIASTINUM: Unremarkable thyroid. Nonspecific mediastinal lymph nodes. No pathologic lymphadenopathy. Nonenlarged heart. No pericardial effusion. Atherosclerotic calcifications nonaneurysmal aorta. Nonenlarged pulmonary arteries. Diffusely mildly thickened esophagus. CORONARY ARTERY CALCIFICATION: Moderate. PLEURA: There is no pleural effusion. No pleural mass or thickening. AXILLA: No lymphadenopathy. UPPER ABDOMEN: Debris-filled stomach. Splenic hilar metallic densities and question splenic calcifications versus anastomotic suture line. Multiple left suprarenal nodular densities, possibly varices. Left adrenal gland not identified with certainty. Small nodular liver. 2.2 cm peripherally calcified gallstone. OSSEOUS/SOFT TISSUE STRUCTURES: No suspicious osseous lesions. Bilateral gynecomastia. CT/CT lung screening IMPRESSION: 3 mm right lower lobe pulmonary nodule. Hyperinflation with mild centrilobular emphysema. Upper abdominal findings suggestive of cirrhosis with portal hypertension. Question previous splenic intervention and left upper abdominal varices. Cholelithiasis. Compare with history and previous studies, if available. ASSESSMENT: Lung-RADS category 2: Benign RECOMMENDATION: Routine annual low-dose CT screening in 12 months. For above findings, consider IV contrast-enhanced CT of the abdomen if clinically indicated.
== END 2023-04-19 09:19 | disposition home or self-care (01) ==
LOC: HO.CT 09:18
PROVIDERS: PCP Internal Medicine; Visit Provider Nurse Practitioner Family
DX: F17.210 Nicotine dependence, cigarettes, uncomplicated (principal)
CPT/HCPCS: 71271; G0296